=== PATIENT | female | born 1935 | race Caucasian/White ===

== ENCOUNTER 2016-10-09 08:28 | Inpatient (IN) ==
[2016-10-09] MEDS ORDERED: ONDANSETRON 4 MG/2 ML VIAL IV PRN (08:35)
[2016-10-09] MEDS ORDERED: ACETAMINOPHEN 325 MG TABLET PO PRN (08:35)
--- NOTE | 2016-10-09 08:50 | Family Practice History&Phys ---
Assessment and Plan (1) severe dyspnea with exertion Status: Acute Assessment and plan: Patient not able to function at present with a level of dyspnea. I am not able to determine the exact etiology but is probably multifactorial in nature. In view of degree of symptoms will admit for further evaluation and therapy (2) known diastolic dysfunction Status: Chronic Assessment and plan: Patient has been evaluated by Dr. Caicedo in the past. We'll consult Dr. Caicedo for his assistance (3) COPD (chronic obstructive pulmonary disease) Status: Chronic Assessment and plan: Patient has been evaluated by pulmonary in the past. She presently uses an Advair inhaler on a daily basis. 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 Valladares is a 80 year old female 80-year-old white female well known to me who was seen in the clinic complaining of progressive dyspnea. Patient states that symptoms have progressed to the point that she is not able to walk across the room or do any activity without severe dyspnea. Patient is dyspneic at rest. She denies cough congestion chest pain or other related complaints. She has had some similar symptoms in the past and has been evaluated by Dr. Caicedo. She was felt to have a component of diastolic dysfunction and her medications were regulated.. She is also seeing Dr. Leyva in the past and has been placed on bronchodilators. Her lung johnson are actually clear to auscultation at present and chest x-ray done earlier this week is unremarkable. Family states that she has to stop every few feet in order to be able to ambulate. Family relates that there's been a significant change in her breathing. Her O2 sats in the clinic were 91%. Patient states she's having to sit up on the side of the bed in order to sleep. In view of the degree of symptoms with no clear-cut diagnosis a plan to admit for more aggressive evaluation and therapy. This is likely multifactorial in nature. We'll plan to consult cardiology and pulmonary for their assistance Home Medications Medication Instructions Recorded Confirmed Type Diltiazem Cd Cap [Cardizem Cd] 240 mg PO ONCE 08/22/14 08/29/14 History Ergocalciferol (Vitamin D2) 50,000 unit PO BID 08/22/14 08/29/14 History [Vitamin D2] Tolterodine LA [Detrol LA] 4 mg PO DAILY 08/22/14 08/29/14 History cloNIDine HCl [Clonidine HCl] 0.1 mg PO DAILY 08/22/14 08/29/14 History hydroCHLOROthiazide 12.5 mg PO DAILY 08/22/14 08/29/14 History [Hydrochlorothiazide] HYDROcodone/ACETAMIN 5-325 [[place] 1 - 2 tablet PO Q4H PRN #20 tablet 08/31/14 Rx 5-325] Allergies Allergy/AdvReac Type Severity Reaction Status Date / Time No Known Allergies Allergy Unverified 08/29/14 06:18 Medical,Surgical,& Family Hx - Medical History Cardio: History of: Hypertension No history of: Aneurysm, Cardiac Dysrhythmia, Cerebrovascular Disease, Congenital Heart Disease, CHF, CAD, [place], Pacemaker, PVD, Valvular Heart Disease, Cardiovascular Problems Psychological: No history of: Anxiety Disorders, ADHD, Behavior Problems, Bipolar Disorder, Depression, Previous Suicide Attempt, Psychiatric/Substance Abuse Tx, Schizophrenia, Violent Behavior, Psychiatric Problems Neurology: No history of: Seizures HEENT: History of: Ear Problem (HARD OF HEARING), Eye Problem (HAD CATARACT SURGERY), Dental Problems (UPPER AND LOWER DENTURES) No history of: Glaucoma, Oral Cancer Endocrine: No history of: Adrenal Disease, Diabetes Mellitus (IDDM), Diabetes Mellitus ( NIDDM), Dyslipidemia, Thyroid Disorder, Endocrine Cancer, Endocrine Problems Rheumatology: No history of;: Fibromyalgia, Gout, Myasthenia Gravis, Psoriasis, Rheumatoid Arthritis, Systemic Lupus Erythematosus, Rheumatological Problems Respiratory: History of: Lung Cancer, Respiratory Problems (SHORTNESS OF BREATH) No history of: Asthma, Bronchitis, COPD, Intubation, Obstructive Sleep Apnea , Pulmonary Embolism, Pulmonary Hypertension, Pneumonia Renal: No history of: Renal (Kidney) Cancer, Dialysis, Renal Failure, Renal Problems Genitourinary: History of: Bladder Problem (FREQUENCY) No history of: Kidney Stones, Recurring Urinary Tract Infections, Genitourinary Cancer, Problems Gastrointestinal: History of: GERD (PAST HISTORY OF REFLUX NOT CURRENTLY) Musculoskeletal: No history of: Back/Neck Problems, Degenerative Disk Disease, Herniated Disk , Osteoporosis, Musculoskeletal Cancer, Musculoskeletal Problems Hematology: No history of: Anemia, Blood Transfusion Reaction, Bleeding Problems, Sickle Cell Disease, Hematologic Cancer Reproductive: No history of: Abnormal Pap Smear, Breast Cancer, Endometriosis, Ectopic , Ovarian Cysts, Complication, Sexually Transmitted Disorders , Reproductive Cancer, Reproductive Problems Other: History of: Anesthesia Reactions (HARD TO WAKE UP AFTER LAST ANESTHESIA) , Cancer (LUNG CANCER) No history of: HIV, Malignant Hyperthermia, MRSA, Vancomycin-Resistant Enterococci, Skin Problems, Miscellaneous Medical Problems - Surgical History Cardiac Surgeries: Patient Denies: Femoral-Popliteal Bypass Graft, Cardiac Catheterization, Cardiac Surgery, Carotid Endarterectomy, Internal Defibrillator, Vascular Access Devices Thoracic Surgeries: Surgical HX of;: Lobectomy Patient denies;: Kidney (Renal Surgery), Lithotripsy, Nephrectomy, Organ Transplant Neurologic Surgeries: Patient denies: Neurologic Surgery HEENT Surgeries: Surgical HX of: Eye Surgery (CATARACT), Thyroid Surgery ( THYROECTOMY) Patient denies: Carotid Endarterectomy, Tonsilectomy & Adenoidectomy Abdominal Surgeries: Surgical HX of: Abdominal Surgery (GALLBLADDER), Appendectomy Patient denies: Cholecystectomy, Colonoscopy, Gastric Bypass Surgery, EGD, Hernia Repair, Splenectomy Reproductive Surgeries: Patient denies;: Breast Surgery, Section, Cystoscopy, Dilation and Curettage, Genitourinary Surgery, Gynecologic Surgery, Hysterectomy, Tubal Ligation - Family History Family History: Reports;: Family Heart Disease (BROTHER) Denies;: Family Anesthesia Reaction, Family Cancer, Family Diabetes, Family Hypertension, Family Psychiatric Problems, Family Stroke - Social History Smoking Status: Former smoker Frequency of Alcohol Use: None Type of Drug Use: None Marital Status: Lives With:: Spouse Functional capacity: independent ambulation Exam - Constitutional General appearance: mild distress - Head Head exam: Present: normal inspection - Eye Pupils: Present: RUPERTO - ENT ENT exam: Present: normal exam - Neck Neck exam: Present: normal inspection, other (no jugular venous distention) - Respiratory Respiratory exam: Present: clear to auscultation bilaterally - Cardiovascular Cardiovascular exam: Present: regular rate and rhythm - GI/Abdominal GI/Abdominal exam: Present: normal bowel sounds, soft - Extremities Exam Extremities exam: Present: full ROM, edema - Back Exam Back exam: Present: normal inspection - Neurological Exam Neurological exam: Present: alert - Psychiatric Psychiatric exam: Present: normal affect - Skin Skin exam: Present: normal color
[2016-10-09 10:00] LABS: Basophils # 0.1 10*3/uL (0.0-0.2); Basophils % 0.5 % (0.0-0.8); Eosinophils % 0.2 % (0.00-10.9); Hematocrit 43.5 VOL% (35.7-47.0); Hemoglobin 13.9 GM/DL (12.0-16.0); Immature Granulocytes % 7.3 %; Immature Granulocytes Absolute 1.55 #; Lymphocytes # 1.3 10*3/uL (1.4-4.0); Lymphocytes % 6.2 % (21.3-54.2); Mean Corpuscular Hemoglobin 29 PG (27-34); Mean Corpuscular Volume 89.1 FL (87-102); Mean Platelet Volume 10.9 FL (9.6-12.0); Monocytes % 4.7 % (1.7-12.7); NRBC # 0.03 10*3/uL; Neutrophils # 17.3 10*3/uL (1.4-7.4); Neutrophils % 81.1 % (38.7-73.9); Platelet Count 378 T/CUMM (130-400); Red Blood Count 4.88 MC/CUMM (3.8-5.5); Red Cell Distribution Width 15.7 % (9.3-17.3); White Blood Count 21.3 T/CUMM (4-12)
--- NOTE | 2016-10-09 10:02 | EKG Report ---
Stationary ECG Study [facility] Test Date: 10/09/2016 10:02:21 AM Pat Name: SILVANA GABRIEL Department: Room: 221 Gender: F Lathmaker: EARL : 1935 Requested by: Marco Antonio De La Torre Order Number: [id number] Reading MD: KASHIF COLEMAN Intervals [place] Rate: 80 P: 55 CT: 175 QRS: -54 QRSD: 112 T: 65 QT: 394 QTc: 430 Interpretive Statements SINUS RHYTHM RIGHT BUNDLE BRANCH BLOCK LEFT ANTERIOR FASCICULAR BLOC Electronically Signed On 10-09-16 17:28:50 CDT by KASHIF COLEMAN [email or web address]
[2016-10-09 10:24] LABS: Eosinophils 1 % (0-10); Hypochromasia 2+; Lymphocytes 7 % (20-55); Microcytosis 2+; Platelet Estimate Adequate; Segmented Neutrophils 90 % (50-85); Total Cells Counted 100
[2016-10-09 10:30] LABS: Albumin 4.2 G/DL (3.4-5.0); Bilirubin,Total 0.6 MG/DL (0.2-1.0); Calcium 8.9 MG/DL (8.5-10.1); Osmolality,Calculated 285.4 MOS/KG (273-304); Total Protein 7.5 G/DL (6.4-8.3)
--- NOTE | 2016-10-09 10:42 | Pulmonology Consult Note ---
Assessment and Plan (1) Acute diastolic congestive heart failure Status: Acute Assessment and plan: She has edema and orthopnea and history of diastolic congestive heart failure. She has some mild. I do not have a chest x-ray BNP or echo back as yet. However I think she likely has some heart failure. Would suggest diuresing her and stopping IV fluids. Her creatinine is 1.4. She has had a previous left nephrectomy. 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 [place] to be in remission. Dr. Lowe is treated in the past. Dr. Durbin did her surgery. 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 Sneed about 2 years ago. Current Visit: No (4) COPD (chronic obstructive pulmonary disease) Status: Chronic Assessment and plan: She stopped smoking about 30 years ago but does have a diagnosis of COPD. Dr. Leyva has followed her in the past and will roller picker on Wednesday. Current Visit: No (5) severe dyspnea with exertion Status: Acute Assessment and plan: It is not clear how much of this is from congestive heart failure or COPD. I am concerned about a possible pulmonary embolism was her bilateral leg swelling and pain. Will get venous Dopplers and a CT PE protocol. Creatinine of 1.4 should allow her to have that. Current Visit: Yes History of Present Illness Chief complaint: Shortness of breath History of present illness: Ms. Valladares is a 80 year old female who was admitted today by Dr. Melchor from his office. She relates that she has been getting more more short of breath over the last month and had increased leg edema. She has a history of congestive heart failure related to diastolic dysfunction. She has COPD. She is on previous left lower lobectomy for lung cancer about 12 years ago. She had chemotherapy after that but apparently no evidence of recurrence since then. Dr. Lowe treated her. She had a left nephrectomy about 2 years ago. She says she has been more more short of breath since that time. Now for the last 3-4 weeks she has been more short of breath with nothing specific to put her finger on. She does have orthopnea. She has had increasing amounts of leg edema. There is no known history of deep vein thrombosis. Home Medications Medication Instructions Recorded Confirmed Type Diltiazem Cd Cap [Cardizem Cd] 240 mg PO ONCE 08/22/14 08/29/14 History Ergocalciferol (Vitamin D2) 50,000 unit PO BID 08/22/14 08/29/14 History [Vitamin D2] Tolterodine LA [Detrol LA] 4 mg PO DAILY 08/22/14 08/29/14 History cloNIDine HCl [Clonidine HCl] 0.1 mg PO DAILY 08/22/14 08/29/14 History hydroCHLOROthiazide 12.5 mg PO DAILY 08/22/14 08/29/14 History [Hydrochlorothiazide] HYDROcodone/ACETAMIN 5-325 [[place] 1 - 2 tablet PO Q4H PRN #20 tablet 08/31/14 Rx 5-325] Allergies Allergy/AdvReac Type Severity Reaction Status Date / Time No Known Allergies Allergy Unverified 08/29/14 06:18 12 point system: reviewed and no additional remarkable complaints except as stated - Constitutional Constitutional: Present: weight gain - Cardiovascular Cardiovascular: Present: dyspnea, dyspnea on exertion, edema - Respiratory Respiratory: Present: dyspnea, dyspnea on exertion Exam (Pulmonay) H&P - Constitutional Vitals: Vital signs normal. Exam: Patient alert and oriented. Sitting on the side of the bed. HEENT: Pupils react to light. Throat is clear. Neck is supple. Mild jugular venous distention. Chest shows a few crackles at the right base. Decreased breath sounds and dullness at the left base. She had prolonged expiratory phase. Heart normal rate and rhythm no murmurs no rubs no gallops. Abdomen soft nontender no masses. Bowel sounds present. Extremities she has 2+ pitting edema. There is some erythema in both lower extremities. Calves are nontender. Medical,Surgical,& Family Hx - Medical History Cardio: History of: Hypertension No history of: Aneurysm, Cardiac Dysrhythmia, Cerebrovascular Disease, Congenital Heart Disease, CHF, CAD, [place], Pacemaker, PVD, Valvular Heart Disease, Cardiovascular Problems Psychological: No history of: Anxiety Disorders, ADHD, Behavior Problems, Bipolar Disorder, Depression, Previous Suicide Attempt, Psychiatric/Substance Abuse Tx, Schizophrenia, Violent Behavior, Psychiatric Problems Neurology: No history of: Seizures HEENT: History of: Ear Problem (HARD OF HEARING), Eye Problem (HAD CATARACT SURGERY), Dental Problems (UPPER AND LOWER DENTURES) No history of: Glaucoma, Oral Cancer Endocrine: No history of: Adrenal Disease, Diabetes Mellitus (IDDM), Diabetes Mellitus ( NIDDM), Dyslipidemia, Thyroid Disorder, Endocrine Cancer, Endocrine Problems Rheumatology: No history of;: Fibromyalgia, Gout, Myasthenia Gravis, Psoriasis, Rheumatoid Arthritis, Systemic Lupus Erythematosus, Rheumatological Problems Respiratory: History of: Lung Cancer, Respiratory Problems (SHORTNESS OF BREATH) No history of: Asthma, Bronchitis, COPD, Intubation, Obstructive Sleep Apnea , Pulmonary Embolism, Pulmonary Hypertension, Pneumonia Renal: No history of: Renal (Kidney) Cancer, Dialysis, Renal Failure, Renal Problems Genitourinary: History of: Bladder Problem (FREQUENCY) No history of: Kidney Stones, Recurring Urinary Tract Infections, Genitourinary Cancer, Problems Gastrointestinal: History of: GERD (PAST HISTORY OF REFLUX NOT CURRENTLY) Musculoskeletal: No history of: Back/Neck Problems, Degenerative Disk Disease, Herniated Disk , Osteoporosis, Musculoskeletal Cancer, Musculoskeletal Problems Hematology: No history of: Anemia, Blood Transfusion Reaction, Bleeding Problems, Sickle Cell Disease, Hematologic Cancer Reproductive: No history of: Abnormal Pap Smear, Breast Cancer, Endometriosis, Ectopic , Ovarian Cysts, Complication, Sexually Transmitted Disorders , Reproductive Cancer, Reproductive Problems Other: History of: Anesthesia Reactions (HARD TO WAKE UP AFTER LAST ANESTHESIA) , Cancer (LUNG CANCER) No history of: HIV, Malignant Hyperthermia, MRSA, Vancomycin-Resistant Enterococci, Skin Problems, Miscellaneous Medical Problems - Surgical History Cardiac Surgeries: Patient Denies: Femoral-Popliteal Bypass Graft, Cardiac Catheterization, Cardiac Surgery, Carotid Endarterectomy, Internal Defibrillator, Vascular Access Devices Thoracic Surgeries: Surgical HX of;: Lobectomy Patient denies;: Kidney (Renal Surgery), Lithotripsy, Nephrectomy, Organ Transplant Neurologic Surgeries: Patient denies: Neurologic Surgery HEENT Surgeries: Surgical HX of: Eye Surgery (CATARACT), Thyroid Surgery ( THYROECTOMY) Patient denies: Carotid Endarterectomy, Tonsilectomy & Adenoidectomy Abdominal Surgeries: Surgical HX of: Abdominal Surgery (GALLBLADDER), Appendectomy Patient denies: Cholecystectomy, Colonoscopy, Gastric Bypass Surgery, EGD, Hernia Repair, Splenectomy Reproductive Surgeries: Patient denies;: Breast Surgery, Section, Cystoscopy, Dilation and Curettage, Genitourinary Surgery, Gynecologic Surgery, Hysterectomy, Tubal Ligation - Family History Family History: Reports;: Family Heart Disease (BROTHER) Denies;: Family Anesthesia Reaction, Family Cancer, Family Diabetes, Family Hypertension, Family Psychiatric Problems, Family Stroke - Social History Smoking Status: Smoker, status unknown Frequency of Alcohol Use: None Type of Drug Use: None Results - Labs CBC & BMP: 10/09/16 09:34 10/09/16 09:34 Lab Results: I have reviewed the past 24 hour labs
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
--- NOTE | 2016-10-09 11:56 | Ultrasound Report ---
Exam: Bilateral lower extremity venous Doppler ultrasound Comparison: None Clinical history: Leg edema, leg pain, shortness of breath Technique: Duplex scan of the lower extremity veins using B-mode/grayscale scaled imaging and Doppler spectral analysis and color flow. Findings: Major venous structures of the lower extremities demonstrate a normal course and caliber. Normal color-flow study and spectral analysis. There is normal compression and augmentation of bilateral common femoral, superficial femoral and popliteal veins. The proximal bilateral greater saphenous veins appear to be patent. Impression: No evidence to suggest deep venous thrombosis within either lower extremity. Ultrasound images were captured and stored. PROCEDURE INTERPRETED AT [facility] DEPARTMENT OF RADIOLOGY Final Report Signed by: Dr. Hallie Dalton
--- NOTE | 2016-10-09 12:51 | CT Report ---
Exam: CT chest with contrast, PE study Date: 10/09/2016 Comparison: 07/09/2015 Reason: Shortness of breath, history of lung, thyroid, and kidney cancer Technique: Axial images of the chest were obtained after administration of 80 cc of IV Omnipaque 350 intravenous contrast. Coronal reformatted images were also acquired. The study was performed per pulmonary embolism protocol. Total DLP: 632.40 Findings: The heart remains enlarged with prominent cardiac fat pad and minimal arterial calcifications. No evidence of aortic dissection with the thoracic aorta remaining at the upper limits normal in size. Pulmonary arteries with no definite pulmonary emboli. Postoperative findings in the left thyroid bed incomplete evaluation of right lobe. No chest lymphadenopathy is identified. Prior left thoracotomy with degenerative changes. Subpleural fat deposition with chronic scarring in the lungs. Persistent diffuse groundglass opacities with bullous emphysema. Stable 3 mm noncalcified pulmonary nodule in the right middle lobe on image 66. Stable 5 mm noncalcified pulmonary nodule in the left lower lobe on scan 59. Impression: No definite pulmonary emboli identified with minimal dilatation of the pulmonary arteries. Minimal arterial calcifications. Prior left thyroid lobectomy with limited evaluation of the right lobe of the thyroid gland. Prior left thoracotomy with 2 stable noncalcified pulmonary nodules. Chronic scarring with persistent diffuse groundglass opacities and minimal bullous emphysema. Increased fat deposition including fatty infiltration of liver, cardiac fat pads, and subpleural fat deposition. This CT exam was performed using one or more the following dose reduction techniques: Automated exposure control, adjustment of the MA and/or KV according to patient size, or use of iterative reconstruction technique. PROCEDURE INTERPRETED AT [facility] DEPARTMENT OF RADIOLOGY Final Report Signed by: Dr. Hallie Dalton
[2016-10-09] MEDS ORDERED: DILTIAZEM CD 240 MG CAPSULE PO SCH (13:30)
[2016-10-09] MEDS: ALBUTEROL/IPRATROPIUM 3 ML NEB RESP TX SCH ×2 (13:51→19:48)
[2016-10-09] MEDS: DEXTROSE 5% NACL 0.45% 1,000 ML IV SCH (14:16)
[2016-10-09] MEDS: DOCUSATE SODIUM 100 MG CAPSULE PO SCH ×2 (14:19→22:57)
[2016-10-09] MEDS: PANTOPRAZOLE 40 MG TABLET PO SCH (14:19)
[2016-10-09] MEDS: TOLTERODINE LA 4 MG CAPSULE PO SCH (14:19)
[2016-10-09 15:58] LABS: Apearance,Urine CLEAR (Clear); Bilirubin,Urine Negative (Negative); Blood, Urine Negative (Negative); Glucose,Urine (UA) Negative (Negative); Ketones,Urine Negative (Negative); Nitrite,Urine Negative (Negative); Protein,Urine Negative; RBC,Urine <1 /HPF (0-4); Squamous Epithelial Cell,Urine Occasional /HPF (0-10); Urine Color Straw (Yellow); Urine Specific Gravity 1.008 (1.001-1.035); Urine Urobilinogen < 2.0 EU/DL (0.2-1.0); WBC,Urine 1 /HPF (0-6)
--- NOTE | 2016-10-09 16:07 | XRay Report ---
XR chest 2V Indication: Shortness of breath. Chest 2 views: Comparison 07/25/2012. Patient has had left humerus surgery since prior exam. Lungs are more hypoinflated than previous with some degree of worsening atelectasis. Chronic elevation left hemidiaphragm is again noted. Surgical clips left hilum and left neck are stable. Cardiomegaly is now present with increased reticular prominence of the lungs, possibly edema. No focal infiltrate shown. No pleural effusion. Patient is obese. Impression: Mild CHF decompensation. Chronic elevation left hemidiaphragm and pulmonary hypoinflation in general. PROCEDURE INTERPRETED AT [facility] DEPARTMENT OF RADIOLOGY Final Report Signed by: Gamaliel Corona M.D.
--- NOTE | 2016-10-09 16:23 | ECHO Report ---
Dylan Valladares Exam Date: 10/09/2016 10:04 Referring Physician: Technologist: Jemma Fields CHUY Age: 80 Ht (in): 63 Wt (lb): 253 Gender: F Exam Location: [facility] Echo Indications: Dyspnea, unspecified, Essential (primary) hypertension, Diastolic dysfunction, COPD, Lt nephrectomy, lung cancer BP: 160 / 95 HR: 82 Rhythm: Sinus Technical Quality: Fair IMPRESSIONS EF 60 %. Grade I/IV diastolic dysfunction (abnormal relaxation filling pattern), normal to mildly elevated filling pressures. Mildly increased right ventricular size. Moderately increased right atrial size. The left atrium is mildly enlarged. Mildly thickened mitral valve. Aortic valve sclerosis. Trace aortic valve regurgitation. Severe tricuspid valve regurgitation. [id number] mmHg. Pulmonic valve not well visualized. Normal pericardium without effusion. Normal ascending aorta dimension. MEASUREMENTS (Male / Female) Normal Values 2D ECHO LV Diastolic Diameter PLAX 4.5 cm 4.2 - 5.9 / 3.9 - 5.3 cm LV Systolic Diameter PLAX 2.8 cm LV Fractional Shortening PLAX 36.9 % IVS Diastolic Thickness 0.9 cm 0.6 - 1.0 / 0.6 - 0.9 cm LVPW Diastolic Thickness 0.9 cm 0.6 - 1.0 / 0.6 - 0.9 cm RV Internal Dim ED PLAX 3.1 cm Aortic Root Diameter 3.8 cm LA Systolic Diameter LX 3.4 cm 3.0 - 4.0 / 2.7 - 3.8 cm DOPPLER TR Peak Velocity 350.0 cm/s TR Peak Gradient 49.0 mmHg FINDINGS Left Ventricle EF 60 %. Grade I/IV diastolic dysfunction (abnormal relaxation filling pattern), normal to mildly elevated filling pressures. Right Ventricle Mildly increased right ventricular size. Right Atrium Moderately increased right atrial size. Left Atrium The left atrium is mildly enlarged. Mitral Valve Mildly thickened mitral valve. Aortic Valve Aortic valve sclerosis. Trace aortic valve regurgitation. Tricuspid Valve Morphologically normal tricuspid valve. Severe tricuspid valve regurgitation. UBX68-76 mmHg. Pulmonic Valve Pulmonic valve not well visualized. Pericardium Normal pericardium without effusion. Aorta Normal ascending aorta dimension. Jarrell Petty (Electronically Signed) Final Date: 09 Oct 2016 16:22
[2016-10-10] MEDS: ALBUTEROL/IPRATROPIUM 3 ML NEB RESP TX SCH ×4 (00:36→19:10)
[2016-10-10 04:26] LABS: Basophils # 0.1 10*3/uL (0.0-0.2); Basophils % 0.6 % (0.0-0.8); Eosinophils # 0.1 10*3/uL (0.0-0.87); Hematocrit 41.5 VOL% (35.7-47.0); Immature Granulocytes % 8.2 %; Immature Granulocytes Absolute 1.17 #; Lymphocytes # 1.3 10*3/uL (1.4-4.0); Lymphocytes % 8.9 % (21.3-54.2); Mean Corpuscular HGB Conc 31.3 GM/DL (32-36); Mean Corpuscular Hemoglobin 28 PG (27-34); Mean Corpuscular Volume 89.4 FL (87-102); Mean Platelet Volume 10.9 FL (9.6-12.0); Monocytes # 0.7 10*3/uL (0.11-0.8); Monocytes % 4.6 % (1.7-12.7); NRBC # 0.03 10*3/uL; Neutrophils # 10.9 10*3/uL (1.4-7.4); Neutrophils % 76.7 % (38.7-73.9); Platelet Count 337 T/CUMM (130-400); Red Blood Count 4.64 MC/CUMM (3.8-5.5); White Blood Count 14.3 T/CUMM (4-12)
[2016-10-10 04:55] LABS: Calcium 8.5 MG/DL (8.5-10.1); Magnesium 2.4 MG/DL (1.8-2.4); Osmolality,Calculated 286.3 MOS/KG (273-304); Potassium 4.4 MMOL/L (3.5-5.1)
[2016-10-10 05:04] LABS: Eosinophils 2 % (0-10); Hypochromasia 2+; Lymphocytes 7 % (20-55); Metamyelocytes 1 %; Platelet Estimate Normal; Segmented Neutrophils 84 % (50-85); Total Cells Counted 100
[2016-10-10 05:35] LABS: Risk Ratio 3.98; VLDL CHOLESTEROL 56.8 MG/DL
[2016-10-10] MEDS: PANTOPRAZOLE 40 MG TABLET PO SCH (08:22)
[2016-10-10] MEDS: DOCUSATE SODIUM 100 MG CAPSULE PO SCH ×2 (08:22→22:04)
[2016-10-10] MEDS: hydroCHLOROthiazide 12.5 MG CAPSULE PO SCH (08:22)
[2016-10-10] MEDS: cloNIDine 0.1 MG TABLET PO SCH (08:22)
[2016-10-10] MEDS: TOLTERODINE LA 4 MG CAPSULE PO SCH (08:22)
[2016-10-10] MEDS: DEXTROSE 5% NACL 0.45% 1,000 ML IV SCH (08:30)
--- NOTE | 2016-10-10 08:38 | Family Practice Progress Note ---
Family Practice - PN: Subj Interval history: Patient in with dyspnea with exertion. She still having a little bit of shortness of breath. She does have a component of chronic obstructive pulmonary disease with some diastolic dysfunction. Oxygen sats today are 92%. She states she may be a little better but still having a fair amount of dyspnea with exertion. She is morbidly obese which does not contribute well to the situation. I am going to DC her IV fluids today. Her white count has come down to 14.3 from 21. Creatinine stable at 1.3 and lab otherwise is okay Exam (Progress Note) - Constitutional Vitals: Period Temp Pulse Resp BP Sys/Rocha Pulse Ox Last 24 Hr 96.2 F-98.0 F 78-100 17-32 129-160/78-95 92-99 Exam: General examination is unchanged. HEENT is negative Cardiovascular rate regular no gallop or rub Lungs few basilar rales but generally clear otherwise Abdomen soft nondistended Results - Labs CBC & BMP: 10/10/16 03:59 10/10/16 03:59 Assessment and Plan (1) severe dyspnea with exertion Status: Acute Assessment and plan: 10/10/2016: Continuing current regimen of breathing treatments and medications Current Visit: Yes (2) COPD (chronic obstructive pulmonary disease) Status: Chronic Assessment and plan: 10/10/2016. Patient is on albuterol. O2 sats are 92% on 2 L of O2 Current Visit: No
--- NOTE | 2016-10-10 08:48 | Pulmonology Progress Note ---
Pulmonary - PN: Subj Interval history: This 80-year-old white female has had gradually worsening shortness of breath over the last month. She is a former smoker and has had a left lower lobectomy for lung cancer. She had some peripheral edema. We did a CT PE protocol yesterday and there was no evidence of embolism. In fact her lungs were clear and there were no pleural effusions. I do think she has some acute bronchitis. I have stopped her IV fluids because of the peripheral edema. Her renal function appears intact. Her BNP was low at 46 which would certainly argue against any congestive heart failure. She had venous Dopplers were negative for DVT. I think some of her edema and dyspnea are due to her weight and inactivity. There is some debilitation from lack of activity. Exam (Progress Note) - Constitutional Vitals: Period Temp Pulse Resp BP Sys/Rocha Pulse Ox Last 24 Hr 96.2 F-98.0 F 78-100 17-32 129-160/78-95 92-99 Exam: Patient is alert sitting up in a chair. Vital signs are normal. Pupils react to light. Throat is clear. Neck supple no bruits. Chest is clear I do not hear any rales or wheezes. Heart normal rate and rhythm no murmurs. Abdomen obese unable to palpate abdominal organs. Extremities she has a trace to 1+ peripheral edema. Calves are nontender. Results - Labs CBC & BMP: 10/10/16 03:59 10/10/16 03:59 Lab Results: I have reviewed the past 24 hour labs - Diagnostic Findings Procedure: CT - chest: image reviewed by me (Lungs clear. No pulmonary embolism.) Assessment and Plan (1) Acute diastolic congestive heart failure Status: Acute Assessment and plan: She has edema and orthopnea and history of diastolic congestive heart failure. She has some mild. I do not have a chest x-ray BNP or echo back as yet. However I think she likely has some heart failure. Would suggest diuresing her and stopping IV fluids. Her creatinine is 1.4. She has had a previous left nephrectomy. 10/10/2016 I think she is a little ahead on fluids but I do not see any signs of acute heart failure. 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 [place] to be in remission. Dr. Lowe is treated in the past. Dr. Durbin did her surgery. 10/10/2016 shortly no evidence of recurrence of her cancer on CT scan. 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 Sneed about 2 years ago. 10/10/2016 creatinine 1.3. Renal function actually better after the CT contrast study. Current Visit: No (4) COPD (chronic obstructive pulmonary disease) Status: Chronic Assessment and plan: She stopped smoking about 30 years ago but does have a diagnosis of COPD. Dr. Leyva has followed her in the past and will picker and packer on Wednesday. 10/10/2016 empirically treating her for exacerbation of COPD. Current Visit: No (5) severe dyspnea with exertion Status: Acute Assessment and plan: It is not clear how much of this is from congestive heart failure or COPD. I am concerned about a possible pulmonary embolism was her bilateral leg swelling and pain. Will get venous Dopplers and a CT PE protocol. Creatinine of 1.4 should allow her to have that. 10/10/2016 this is multifactorial. Pulmonary embolus has been ruled out. Patient does have some diastolic congestive heart failure by history but her BNP is normal. Probably has COPD. Obesity and inactivity with physical deconditioning. Had negative venous Dopplers as well. Current Visit: Yes
--- NOTE | 2016-10-10 12:59 | Cardiology Progress Note ---
Cardiology - PN: Subj Interval history: Cardiology note No cough fever or chills. Still short of breath Decreased breath sounds but fairly clear no wheezing Regular rhythm no gallop Negative venous Doppler. CT the chest negative for pulmonary embolus Echo shows ejection fraction of 60% with grade 1 diastolic dysfunction, moderate dilated right atrium, severe TR PA pressure 55-60 with no effusion and aortosclerosis. Lab data White count 14.3 Hemoglobin 13.0 hematocrit 41.5 sodium 141 Potassium 4.4 chloride 104 CO2 29 BUN 27 creatinine 1.30 Magnesium 2.4 glucose 118 Impression Bronchitis Sedentary and deconditioned Multifactorial dyspnea Diastolic dysfunction Chronic hypertension Status post left upper lobectomy October 2003 for adenocarcinoma along followed by chemotherapy Status post partial thyroidectomy Obstructive sleep apnea suspected Obesity, 5 feet 3 inches tall 253 pounds Status post left nephrectomy [address] Jose Antonio Sneed for hypernephroma Plan Nebs Lasix 40 mg daily Cardizem CD has been stopped. This may be contributing to her leg edema Exam (Progress Note) - Constitutional Vitals: Period Temp Pulse Resp BP Sys/Rocha Pulse Ox Last 24 Hr 96.2 F-98.2 F 80-100 17-22 129-158/64-94 92-99 Result/EKG - Labs CBC & BMP: 10/10/16 03:59 10/10/16 03:59 Labs: Laboratory Results - last 24 hr 10/09/16 10/10/16 10/10/16 11:08 03:59 03:59 WBC 14.3 H D RBC 4.64 Hgb 13.0 Hct 41.5 MCV 89.4 MCH 28 MCHC 31.3 L RDW 16.0 Plt Count 337 MPV 10.9 Neut % (Auto) 76.7 H Lymph % (Auto) 8.9 L [place] % (Auto) 4.6 Eos % (Auto) 1.0 Baso % (Auto) 0.6 Neut # (Auto) 10.9 H Lymph # (Auto) 1.3 L [place] # (Auto) 0.7 Eos # (Auto) 0.1 Baso # (Auto) 0.1 Total Counted 100 Immature Gran % 8.2 Nucleated RBC % 0.2 Immature Gran # 1.17 Segmented Neutrophils 84 Lymphocytes 7 L Monocytes 3 Eosinophils 2 Basophils 3.0 H Metamyelocytes 1 Nucleated RBCs # 0.03 Platelet Estimate Normal Hypochromasia 2+ Sodium Potassium Chloride Carbon Dioxide Anion Gap BUN Creatinine GFR Calculation BUN/Creatinine Ratio Glucose Calculated Osmolality Calcium Magnesium Triglycerides 284 H Cholesterol 171 LDL Cholesterol 96.0 VLDL Cholesterol 56.8 HDL Cholesterol 43 Heart Disease Risk Ratio 3.98 25-OH Vitamin D Total Urine Color Straw Urine Appearance Clear Urine pH 6.0 Ur Specific [place] 1.008 Urine Protein Negative Urine Glucose (UA) Negative Urine Ketones Negative Urine Blood Negative Urine Nitrate Negative Urine Bilirubin Negative Urine Urobilinogen < 2.0 H Urine Leukocytes Negative Urine RBC <1 Urine WBC 1 Ur Squamous Epith Cells Occasional Ur Culture Indicated? Not indicated 10/10/16 10/10/16 03:59 03:59 WBC RBC Hgb Hct MCV MCH MCHC RDW Plt Count MPV Neut % (Auto) Lymph % (Auto) [place] % (Auto) Eos % (Auto) Baso % (Auto) Neut # (Auto) Lymph # (Auto) [place] # (Auto) Eos # (Auto) Baso # (Auto) Total Counted Immature Gran % Nucleated RBC % Immature Gran # Segmented Neutrophils Lymphocytes Monocytes Eosinophils Basophils Metamyelocytes Nucleated RBCs # Platelet Estimate Hypochromasia Sodium 141 Potassium 4.4 Chloride 104 Carbon Dioxide 29 Anion Gap 12.4 BUN 27 H Creatinine 1.30 H GFR Calculation 49 BUN/Creatinine Ratio 20.00 Glucose 118 H Calculated Osmolality 286.3 Calcium 8.5 Magnesium 2.4 Triglycerides Cholesterol LDL Cholesterol VLDL Cholesterol HDL Cholesterol Heart Disease Risk Ratio 25-OH Vitamin D Total 7.2 Urine Color Urine Appearance Urine pH Ur Specific [place] Urine Protein Urine Glucose (UA) Urine Ketones Urine Blood Urine Nitrate Urine Bilirubin Urine Urobilinogen Urine Leukocytes Urine RBC Urine WBC Ur Squamous Epith Cells Ur Culture Indicated?
[2016-10-10] MEDS: FUROSEMIDE 40 MG TABLET PO SCH (13:45)
[2016-10-10] MEDS: CARVEDILOL 6.25 MG TABLET PO SCH (22:05)
[2016-10-10] MEDS: FLUTICASONE/SALMETEROL 250-50 DISKUS 14 DOSE INH SCH (22:05)
[2016-10-11] MEDS: ALBUTEROL/IPRATROPIUM 3 ML NEB RESP TX SCH ×4 (01:32→19:37)
[2016-10-11 06:20] LABS: Basophils # 0.1 10*3/uL (0.0-0.2); Basophils % 0.4 % (0.0-0.8); Eosinophils # 0.2 10*3/uL (0.0-0.87); Eosinophils % 1.5 % (0.00-10.9); Hematocrit 42.8 VOL% (35.7-47.0); Hemoglobin 13.8 GM/DL (12.0-16.0); Immature Granulocytes Absolute 1.09 #; Lymphocytes # 1.3 10*3/uL (1.4-4.0); Lymphocytes % 8.3 % (21.3-54.2); Mean Corpuscular HGB Conc 32.2 GM/DL (32-36); Mean Corpuscular Hemoglobin 29 PG (27-34); Mean Corpuscular Volume 88.2 FL (87-102); Mean Platelet Volume 10.5 FL (9.6-12.0); Monocytes # 0.8 10*3/uL (0.11-0.8); NRBC # 0.04 10*3/uL; Neutrophils # 12.2 10*3/uL (1.4-7.4); Neutrophils % 77.8 % (38.7-73.9); Platelet Count 329 T/CUMM (130-400); Red Blood Count 4.85 MC/CUMM (3.8-5.5); Red Cell Distribution Width 15.9 % (9.3-17.3); White Blood Count 15.7 T/CUMM (4-12)
[2016-10-11 06:45] LABS: Lymphocytes 10 % (20-55); Total Cells Counted 100
[2016-10-11 06:47] LABS: Ovalocytes 1+; Platelet Estimate Normal; Polychromasia Few; Segmented Neutrophils 82 % (50-85)
[2016-10-11 06:51] LABS: Calcium 9.2 MG/DL (8.5-10.1); Magnesium 2.2 MG/DL (1.8-2.4); Osmolality,Calculated 280.5 MOS/KG (273-304); Potassium 4.2 MMOL/L (3.5-5.1)
[2016-10-11] MEDS: CARVEDILOL 6.25 MG TABLET PO SCH ×2 (08:09→23:12)
[2016-10-11] MEDS: cloNIDine 0.1 MG TABLET PO SCH (08:09)
[2016-10-11] MEDS: LOSARTAN 50 MG TABLET PO SCH (08:09)
[2016-10-11] MEDS: hydroCHLOROthiazide 12.5 MG CAPSULE PO SCH (08:09)
[2016-10-11] MEDS: TOLTERODINE LA 4 MG CAPSULE PO SCH (08:09)
[2016-10-11] MEDS: PANTOPRAZOLE 40 MG TABLET PO SCH (08:10)
[2016-10-11] MEDS: FUROSEMIDE 40 MG TABLET PO SCH (08:10)
[2016-10-11] MEDS: DOCUSATE SODIUM 100 MG CAPSULE PO SCH ×2 (08:12→23:12)
[2016-10-11] MEDS: MOMETASONE 0.1% CREAM 15 GM TUBE TOP SCH (08:14)
[2016-10-11] MEDS: FLUTICASONE/SALMETEROL 250-50 DISKUS 14 DOSE INH SCH ×2 (08:14→23:13)
[2016-10-11] MEDS: BUDESONIDE/FORMOTEROL 80-4.5 INHALER 6.9 GM INH SCH (08:14)
--- NOTE | 2016-10-11 09:01 | Family Practice Progress Note ---
Family Practice - PN: Subj Interval history: Patient seen. She remains with some shortness of breath especially with walking. She does have component of diastolic dysfunction and obstructive pulmonary disease. White count is 15.7, her creatinine is 1.6 slightly elevated from 1.3. In no acute distress otherwise. Her weight is pretty much stable at this time and she is afebrile. Continue to monitor Exam (Progress Note) - Constitutional Vitals: Period Temp Pulse Resp BP Sys/Rocha Pulse Ox Last 24 Hr 97.2 F-98 F 74-100 16-24 109-137/64-80 93-99 Exam: General examination is unchanged. HEENT is negative Cardiovascular rate regular no gallop or rub Lungs few basilar rales but generally clear otherwise. Still mild shortness of breath with exertion Abdomen soft nondistended Results - Labs CBC & BMP: 10/11/16 05:37 10/11/16 05:37 Assessment and Plan (1) severe dyspnea with exertion Status: Acute Assessment and plan: 10/10/2016: Continuing current regimen of breathing treatments and medications Current Visit: Yes (2) COPD (chronic obstructive pulmonary disease) Status: Chronic Assessment and plan: 10/10/2016. Patient is on albuterol. O2 sats are 92% on 2 L of O2 Current Visit: No
--- NOTE | 2016-10-11 10:00 | Pulmonology Progress Note ---
Pulmonary - PN: Subj Interval history: This 80-year-old white female has had gradually worsening shortness of breath over the last month. She is a former smoker and has had a left lower lobectomy for lung cancer. She had some peripheral edema. We did a CT PE protocol yesterday and there was no evidence of embolism. In fact her lungs were clear and there were no pleural effusions. I do think she has some acute bronchitis. I have stopped her IV fluids because of the peripheral edema. Her renal function appears intact. Her BNP was low at 46 which would certainly argue against any congestive heart failure. She had venous Dopplers were negative for DVT. I think some of her edema and dyspnea are due to her weight and inactivity. There is some debilitation from lack of activity. 10/11/2016 patient feels a little better this morning. She complains of leg pain. Venous Dopplers were negative. Exam (Progress Note) - Constitutional Vitals: Period Temp Pulse Resp BP Sys/Rocha Pulse Ox Last 24 Hr 97.2 F-98.1 F 74-100 16-24 109-137/64-85 93-99 Exam: Patient is alert sitting up in a chair. Vital signs are normal. Pupils react to light. Throat is clear. Neck supple no bruits. Chest is clear I do not hear any rales or wheezes. Heart normal rate and rhythm no murmurs. Abdomen obese unable to palpate abdominal organs. Extremities she has a trace to 1+ peripheral edema. Calves are nontender. Little change from yesterday. Results - Labs CBC & BMP: 10/11/16 05:37 10/11/16 05:37 Lab Results: I have reviewed the past 24 hour labs Assessment and Plan (1) Acute diastolic congestive heart failure Status: Acute Assessment and plan: She has edema and orthopnea and history of diastolic congestive heart failure. She has some mild. I do not have a chest x-ray BNP or echo back as yet. However I think she likely has some heart failure. Would suggest diuresing her and stopping IV fluids. Her creatinine is 1.4. She has had a previous left nephrectomy. 10/10/2016 I think she is a little ahead on fluids but I do not see any signs of acute heart failure. 10/11/2016 responding to diuretics. Weight is down a kilogram. 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 [place] to be in remission. Dr. Lowe is treated in the past. Dr. Durbin did her surgery. 10/10/2016 shortly no evidence of recurrence of her cancer on CT scan. 10/11/2016 appears to be in remission. 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 Sneed about 2 years ago. 10/10/2016 creatinine 1.3. Renal function actually better after the CT contrast study. Current Visit: No (4) COPD (chronic obstructive pulmonary disease) Status: Chronic Assessment and plan: She stopped smoking about 30 years ago but does have a diagnosis of COPD. Dr. Leyva has followed her in the past and will shredder picker on Wednesday. 10/10/2016 empirically treating her for exacerbation of COPD. 10/11/2016 continuing bronchodilators. Current Visit: No (5) severe dyspnea with exertion Status: Acute Assessment and plan: It is not clear how much of this is from congestive heart failure or COPD. I am concerned about a possible pulmonary embolism was her bilateral leg swelling and pain. Will get venous Dopplers and a CT PE protocol. Creatinine of 1.4 should allow her to have that. 10/10/2016 this is multifactorial. Pulmonary embolus has been ruled out. Patient does have some diastolic congestive heart failure by history but her BNP is normal. Probably has COPD. Obesity and inactivity with physical deconditioning. Had negative venous Dopplers as well. Current Visit: Yes
--- NOTE | 2016-10-11 12:49 | Cardiology Progress Note ---
Cardiology - PN: Subj Interval history: Cardiology note 80-year-old woman with bronchitis superimposed on chronic dyspnea No cough. No fever. Short of breath with mild activity. 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 Jose Antonio Sneed for hypernephroma Leg edema-Cardizem was discontinued Plan Nebs 40 mg Lasix daily Currently on Coreg 6.25 mg twice daily and losartan 50 mg daily. Recheck BMP in a.m. watch renal function closely with single kidney Exam (Progress Note) - Constitutional Vitals: Period Temp Pulse Resp BP Sys/Rocha Pulse Ox Last 24 Hr 97.3 F-98.5 F 74-100 16-24 109-132/64-85 93-99 Result/EKG - Labs CBC & BMP: 10/11/16 05:37 10/11/16 05:37 Labs: Laboratory Results - last 24 hr 10/11/16 10/11/16 05:37 05:37 WBC 15.7 H RBC 4.85 Hgb 13.8 Hct 42.8 MCV 88.2 MCH 29 MCHC 32.2 RDW 15.9 Plt Count 329 MPV 10.5 Neut % (Auto) 77.8 H Lymph % (Auto) 8.3 L [place] % (Auto) 5.0 Eos % (Auto) 1.5 Baso % (Auto) 0.4 Neut # (Auto) 12.2 H Lymph # (Auto) 1.3 L [place] # (Auto) 0.8 Eos # (Auto) 0.2 Baso # (Auto) 0.1 Total Counted 100 Immature Gran % 7.0 Nucleated RBC % 0.3 Immature Gran # 1.09 Segmented Neutrophils 82 Lymphocytes 10 L Monocytes 8 Nucleated RBCs # 0.04 Platelet Estimate Normal Polychromasia Few Ovalocytes 1+ Sodium 139 Potassium 4.2 Chloride 101 Carbon Dioxide 28 Anion Gap 14.2 BUN 24 H Creatinine 1.60 H GFR Calculation 38 BUN/Creatinine Ratio 15.00 Glucose 100 Calculated Osmolality 280.5 Calcium 9.2 Magnesium 2.2
[2016-10-12] MEDS: ALBUTEROL/IPRATROPIUM 3 ML NEB RESP TX SCH ×4 (00:21→20:05)
[2016-10-12 03:23] LABS: Basophils # 0.1 10*3/uL (0.0-0.2); Basophils % 0.5 % (0.0-0.8); Eosinophils # 0.2 10*3/uL (0.0-0.87); Eosinophils % 1.6 % (0.00-10.9); Hematocrit 40.9 VOL% (35.7-47.0); Hemoglobin 13.1 GM/DL (12.0-16.0); Immature Granulocytes % 6.2 %; Immature Granulocytes Absolute 0.87 #; Lymphocytes # 1.3 10*3/uL (1.4-4.0); Lymphocytes % 9.4 % (21.3-54.2); Mean Corpuscular Hemoglobin 28 PG (27-34); Mean Platelet Volume 10.8 FL (9.6-12.0); Monocytes # 0.7 10*3/uL (0.11-0.8); Monocytes % 4.7 % (1.7-12.7); NRBC # 0.02 10*3/uL; Neutrophils # 10.8 10*3/uL (1.4-7.4); Neutrophils % 77.6 % (38.7-73.9); Platelet Count 353 T/CUMM (130-400); Red Cell Distribution Width 15.9 % (9.3-17.3)
[2016-10-12 03:28] LABS: Calcium 8.7 MG/DL (8.5-10.1); Magnesium 2.1 MG/DL (1.8-2.4); Osmolality,Calculated 279.8 MOS/KG (273-304); Potassium 4.5 MMOL/L (3.5-5.1)
[2016-10-12 04:01] LABS: Eosinophils 4 % (0-10); Lymphocytes 20 % (20-55); Metamyelocytes 1 %; Myelocytes 1 %; Nucleated Red Blood Cells 1 (0-5); Platelet Estimate Normal; Promyelocytes 2 %; Segmented Neutrophils 66 % (50-85); Total Cells Counted 100
--- NOTE | 2016-10-12 08:28 | Family Practice Progress Note ---
Family Practice - PN: Subj Interval history: Patient states she feels better overall. Still does not feel like she is back to baseline. Still not ambulating much. Encourage patient increase activity today. Appreciate assistance from consultants. Her lung johnson are clear to auscultation this a.m. Main complaint is burning and stinging in her legs. Edema has resolved. Appears to be more of a problem of the stasis dermatitis. Physical exam is otherwise stable. We will continue present treatment plan hopefully can discharge in a.m. Exam (Progress Note) - Constitutional Vitals: Period Temp Pulse Resp BP Sys/Rocha Pulse Ox Last 24 Hr 97.2 F-98.6 F 20-104 18-24 107-164/66-86 92-99 Results - Labs CBC & BMP: 10/12/16 01:59 10/12/16 01:59 Assessment and Plan (1) severe dyspnea with exertion Status: Acute Assessment and plan: Patient not able to function at present with a level of dyspnea. I am not able to determine the exact etiology but is probably multifactorial in nature. In view of degree of symptoms will admit for further evaluation and therapy Current Visit: Yes (2) known diastolic dysfunction Status: Chronic Assessment and plan: Patient has been evaluated by Dr. Caicedo in the past. We'll consult Dr. Caicedo for his assistance Current Visit: Yes (3) COPD (chronic obstructive pulmonary disease) Status: Chronic Assessment and plan: Patient has been evaluated by pulmonary in the past. She presently uses an Advair inhaler on a daily basis. 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
--- NOTE | 2016-10-12 08:53 | Pulmonology Progress Note ---
Pulmonary - PN: Subj Interval history: Patient is a 80-year-old white lady that has had a history of lung cancer in the past. She has had a previous left lower lobectomy. She has a component of COPD. She has also had a left nephrectomy for renal cell cancer. She came in with shortness of breath and chest congestion and was felt to have mild diastolic heart failure. She was also felt to have some bronchitis with slight pneumonia and she is feeling much better now. She says she is walking around some and her shortness of breath is much improved. She is not coughing as much now. Her chest x-ray looks better. Overall she feels much better. Exam (Progress Note) - Constitutional Vitals: Period Temp Pulse Resp BP Sys/Rocha Pulse Ox Last 24 Hr 97.2 F-98.6 F 20-104 18-24 107-164/66-86 92-99 General appearance: no acute distress (The patient is sitting up and looks comfortable.), over weight - Head Head exam: Present: normal inspection, normocephalic - Eye Eye exam: Present: EOMI. Absent: scleral icterus Pupils: Present: RUPERTO - ENT ENT exam: Present: normal exam - Neck Neck exam: Present: normal inspection. Absent: lymphadenopathy, thyromegaly - Respiratory Respiratory exam: Present: clear to auscultation bilaterally. Absent: accessory muscle use, wheezes - Cardiovascular Cardiovascular exam: Present: regular rate and rhythm. Absent: gallop, systolic murmur - GI/Abdominal GI/Abdominal exam: Present: normal bowel sounds, soft. Absent: organomegaly, tenderness - Extremities Exam Extremities exam: Present: edema (She has trace ankle edema). Absent: calf tenderness - Neurological Exam Neurological exam: Present: alert, oriented X3, CN II-XII intact - Psychiatric Psychiatric exam: Present: normal affect, normal mood. Absent: anxious - Skin Skin exam: Present: warm, dry Results - Labs CBC & BMP: 10/12/16 01:59 10/12/16 01:59 - Diagnostic Findings Procedure: Chest x-ray: image reviewed by me, report reviewed by me (Chest x- ray is improved with no infiltrates.) Assessment and Plan (1) hypertension Status: Chronic Assessment and plan: Her blood pressure has been reasonably stable so far. 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 Her creatinine is 1.9 now. Current Visit: No (4) COPD (chronic obstructive pulmonary disease) Status: Chronic Assessment and plan: Patient has a component of COPD and get short of breath easily. Her acute episode is better however. Current Visit: No (5) severe dyspnea with exertion Status: Acute Assessment and plan: The patient was felt to have bronchitis and mild diastolic dysfunction and is better now. Her creatinine was up and will cut back on her diuretics. Current Visit: Yes (6) Acute diastolic congestive heart failure Status: Acute Assessment and plan: She apparently diuresed fairly well and is breathing better. Current Visit: Yes
[2016-10-12] MEDS: FLUTICASONE/SALMETEROL 250-50 DISKUS 14 DOSE INH SCH ×2 (10:11→21:35)
[2016-10-12] MEDS: hydroCHLOROthiazide 12.5 MG CAPSULE PO SCH (10:12)
[2016-10-12] MEDS: DOCUSATE SODIUM 100 MG CAPSULE PO SCH ×2 (10:12→21:36)
[2016-10-12] MEDS: CARVEDILOL 6.25 MG TABLET PO SCH ×2 (10:14→21:36)
[2016-10-12] MEDS: FUROSEMIDE 40 MG TABLET PO SCH (10:15)
[2016-10-12] MEDS: LOSARTAN 50 MG TABLET PO SCH (10:15)
[2016-10-12] MEDS: cloNIDine 0.1 MG TABLET PO SCH (10:15)
[2016-10-12] MEDS: PANTOPRAZOLE 40 MG TABLET PO SCH (10:16)
[2016-10-12] MEDS: TOLTERODINE LA 4 MG CAPSULE PO SCH (10:16)
[2016-10-12] MEDS: MOMETASONE 0.1% CREAM 15 GM TUBE TOP SCH (10:16)
[2016-10-12] MEDS: BUDESONIDE/FORMOTEROL 80-4.5 INHALER 6.9 GM INH SCH (10:18)
--- NOTE | 2016-10-12 11:22 | Cardiology Progress Note ---
Tim Salcedo Vanessa, RN, am scribing for, and in the presence of, Yahaira Parra MD 11:21. Assessment and Plan - Time spent with patient Time spent with patient: Greater than 30 minutes (1) COPD (chronic obstructive pulmonary disease) Status: Chronic Assessment and plan: SEE PLAN OF CARE LISTED BELOW. Current Visit: No (2) gastroesophageal reflux disease Status: Chronic Assessment and plan: SEE PLAN OF CARE LISTED BELOW. Current Visit: No (3) hypertension Status: Chronic Assessment and plan: SEE PLAN OF CARE LISTED BELOW. Current Visit: No (4) Hx of cancer of lung Status: Chronic Assessment and plan: SEE PLAN OF CARE LISTED BELOW. Current Visit: Yes (5) known diastolic dysfunction Status: Chronic Assessment and plan: SEE PLAN OF CARE LISTED BELOW. Current Visit: Yes (6) Anemia Status: Acute Assessment and plan: SEE PLAN OF CARE LISTED BELOW. Current Visit: No (7) Bronchitis Status: Acute Assessment and plan: SEE PLAN OF CARE LISTED BELOW. Current Visit: Yes Cardiology - PN: Subj Interval history: PRIMARY ARTISTIC DIRECTOR: DR. COLEMAN PCP: DR. MELCHOR SUMMARY: Ms. Valladares is a 80 year old white female with risk factors significant for hypertension, advanced age. Past medical history includes COPD, diastolic dysfunction, and lung cancer. She was directly admitted to the hospital from Dr. Melchor's office on 10/09 for further evaluation of severe dyspnea on exertion. Since admission, she has had echocardiogram which showed LV ejection fraction of 60%, grade 1/4 diastolic dysfunction, pulmonary hypertension with PA pressure of 55-60 mmHg. DVT and PE have also been ruled out sources of dyspnea. She has been treated for bronchitis during hospital admission, and Dr. Leyva is also following for pulmonary. No complaints this morning. Vitals have been overall stable. From a cardiac standpoint, she is hemodynamically stable. We have nothing further to add at this time, and we will sign off. Please reconsult us if we can be of assistance during admission. ASSESSMENT/PLAN: 1. CHRONIC HYPERTENSION - Blood pressure is overall well controlled. Continue current care. 2. DYSPNEA WITH EXERTION - Patient has been ruled out for DVT and PE as source of her dyspnea. There are no clinical findings for ACS. 3. KNOWN DIASTOLIC DYSFUNCTION - She had previously been evaluated by Dr. Caicedo and treated for diastolic dysfunction. Echocardiogram during current hospitalization reveals LV ejection fraction of 60% with mild diastolic dysfunction. Overt S/S of congestive heart failure at this time. 4. BRONCHITIS -Defer treatment to pulmonary. Shortness of breath could be secondary to acute upper respiratory infection. 5. GERD- Continue PPI. Exam (Progress Note) - Constitutional Vitals: Period Temp Pulse Resp BP Sys/Rocha Pulse Ox Last 24 Hr 97.2 F-98.6 F 20-104 18-24 107-164/66-86 92-99 Exam: General appearance: normal weight, no acute distress - Head Head exam: Present: normal inspection, normocephalic, atraumatic. Absent: hematoma, laceration - Eye Eye exam: Present: EOMI. Absent: conjunctival injection, nystagmus, periorbital swelling, scleral icterus, laceration to eyelids Pupils: Present: PERRL. Absent: constricted, dilated, fixed, irregular, unequal - ENT ENT exam: Present: normal exam, normal external ear exam - Neck Neck exam: Present: normal inspection. Absent: lymphadenopathy, meningismus, tenderness, thyromegaly - Respiratory Respiratory exam: Present: clear to auscultation bilaterally. Absent: accessory muscle use, chest wall tenderness - Cardiovascular Cardiovascular exam: Present: regular rate and rhythm. Absent: carotid bruit, gallop, JVD, rubs - GI/Abdominal GI/Abdominal exam: Present: normal bowel sounds, soft. Absent: distended, firm , guarding, hernia, mass, tenderness, rebound. - Extremities Exam Extremities exam: Present: 1+ bilateral lower extremity edema left greater than right. Absent: calf tenderness - Back Exam Back exam: Present: normal inspection. Absent: muscle spasm, vertebral tenderness - Neurological Exam Neurological exam: Present: alert, oriented X3, grossly intact without resting or intention tremor - Psychiatric Psychiatric exam: Present: normal affect, normal mood - Skin Skin exam: Present: normal color, warm, dry, intact. Absent: cyanosis, diaphoretic, rash, urticaria Result/EKG - Labs CBC & BMP: 10/12/16 01:59 10/12/16 01:59 Lab Results: I have reviewed the past 24 hour labs Labs: Laboratory Results - last 24 hr 10/12/16 10/12/16 01:59 01:59 WBC 14.0 H RBC 4.70 Hgb 13.1 Hct 40.9 MCV 87.0 MCH 28 MCHC 32.0 RDW 15.9 Plt Count 353 MPV 10.8 Neut % (Auto) 77.6 H Lymph % (Auto) 9.4 L [place] % (Auto) 4.7 Eos % (Auto) 1.6 Baso % (Auto) 0.5 Neut # (Auto) 10.8 H Lymph # (Auto) 1.3 L [place] # (Auto) 0.7 Eos # (Auto) 0.2 Baso # (Auto) 0.1 Total Counted 100 Immature Gran % 6.2 Nucleated RBC % 0.1 Immature Gran # 0.87 Segmented Neutrophils 66 Lymphocytes 20 Monocytes 6 Eosinophils 4 Metamyelocytes 1 Myelocytes 1 Promyelocytes 2 Nucleated RBCs 1 Nucleated RBCs # 0.02 Platelet Estimate Normal Pappenheimer Bodies Flanging Machine Operator Sodium 137 Potassium 4.5 Chloride 98 Carbon Dioxide 30 Anion Gap 13.5 BUN 28 H Creatinine 1.90 H GFR Calculation 31 BUN/Creatinine Ratio 14.00 Glucose 111 H Calculated Osmolality 279.8 Calcium 8.7 Magnesium 2.1 - Diagnostic Findings Procedure: Chest x-ray: image reviewed by me, report reviewed by me - EKG EKG results: interpreted by me, no acute changes IFidel Jennifer, MD, personally performed the services described in this documentation, ascribed by Izzy Dumont RN in my presence, and it is both accurate and complete .
[2016-10-13] MEDS: ALBUTEROL/IPRATROPIUM 3 ML NEB RESP TX SCH ×3 (01:50→12:20)
[2016-10-13 06:53] LABS: Basophils # 0.1 10*3/uL (0.0-0.2); Basophils % 0.5 % (0.0-0.8); Eosinophils # 0.2 10*3/uL (0.0-0.87); Eosinophils % 1.5 % (0.00-10.9); Hematocrit 40.8 VOL% (35.7-47.0); Hemoglobin 12.9 GM/DL (12.0-16.0); Immature Granulocytes % 6.2 %; Immature Granulocytes Absolute 0.81 #; Lymphocytes % 7.9 % (21.3-54.2); Mean Corpuscular HGB Conc 31.6 GM/DL (32-36); Mean Corpuscular Hemoglobin 28 PG (27-34); Mean Corpuscular Volume 88.7 FL (87-102); Mean Platelet Volume 10.4 FL (9.6-12.0); Monocytes # 0.6 10*3/uL (0.11-0.8); Monocytes % 4.6 % (1.7-12.7); Neutrophils # 10.3 10*3/uL (1.4-7.4); Neutrophils % 79.3 % (38.7-73.9); Platelet Count 324 T/CUMM (130-400); Red Cell Distribution Width 15.9 % (9.3-17.3)
[2016-10-13 07:14] LABS: Hypochromasia 1+; Lymphocytes 9 % (20-55); Platelet Estimate Adequate; Segmented Neutrophils 89 % (50-85); Total Cells Counted 100
[2016-10-13 07:28] LABS: Calcium 8.7 MG/DL (8.5-10.1); Magnesium 2.4 MG/DL (1.8-2.4); Osmolality,Calculated 282.7 MOS/KG (273-304); Potassium 4.1 MMOL/L (3.5-5.1); Risk Ratio 4.23; VLDL CHOLESTEROL 61.8 MG/DL
--- NOTE | 2016-10-13 08:10 | Discharge Summary ---
Hospital Course - Hospital Course Hospital Course: Ms. Valladares is a 80 year old female 80-year-old white female well known to me who was seen in the clinic complaining of progressive dyspnea. Patient states that symptoms have progressed to the point that she is not able to walk across the room or do any activity without severe dyspnea. Patient is dyspneic at rest. She denies cough congestion chest pain or other related complaints. She has had some similar symptoms in the past and has been evaluated by Dr. Caicedo. She was felt to have a component of diastolic dysfunction and her medications were regulated.. She is also seeing Dr. Leyva in the past and has been placed on bronchodilators. Her lung johnson are actually clear to auscultation at present and chest x-ray done earlier this week is unremarkable. Family states that she has to stop every few feet in order to be able to ambulate. Family relates that there's been a significant change in her breathing. Her O2 sats in the clinic were 91%. Patient states she's having to sit up on the side of the bed in order to sleep. In view of the degree of symptoms with no clear-cut diagnosis a plan to admit for more aggressive evaluation and therapy. This is likely multifactorial in nature. Hospital course-patient was admitted to hospital lab and x-ray studies obtained. Patient was seen in consultation by cardiology and pulmonary. It was felt that her symptoms were multifactorial and medications were fine-tuned. Is also felt that a component of her symptoms are due to lack of activity. Multiple studies including chest CT, venous Doppler, chest x-ray and cardiac echo were performed. Patient is had a slow but steady improvement throughout admission is generally much improved at time of discharge. Will discharge to home care and arrange follow-up in the office. 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 Discharge Plan - Discharge Data Disposition: Disch To Home/Self Care Condition at Discharge: Stable Discharge Diet: advance to your usual diet Activity: resume usual activities as tolerated Weight Bearing at Discharge: full weight bearing Contact your physician if you experience:: fever over 101, Shortness of breath - Discharge Medications Continue HYDROcodone/ACETAMIN 5-325 [Talent 5-325] 1 - 2 tablet PO Q4H PRN #20 tablet PRN Reason: Pain Moderate (4-7) Losartan Potassium 50 mg PO DAILY Furosemide Tab [Lasix Tab] 40 mg PO DAILY Fluticasone/Salmeterol 250-50 [Advair 250-50] 1 inhaler INH BID Budesonide/Formoterol 80-4.5 [Symbicort 80-4.5] 1 inhaler INH DAILY Mometasone Furoate [Mometasone 0.1% Cream] 1 applic TOP DAILY Carvedilol [Coreg] 6.25 mg PO BID - Follow Up or Referral Follow Up: Marco Antonio Melchor DO [Primary Care Provider] - 2 Weeks - Forms/Instructions Exam - Constitutional Vitals: Period Temp Pulse Resp BP Sys/Rocha Pulse Ox Last 24 Hr 96.6 F-97.6 F 68-95 18-30 104-145/56-68 92-99 General appearance: no acute distress - Head Head exam: Present: normal inspection - Eye Pupils: Present: RUPERTO - ENT ENT exam: Present: normal exam - Neck Neck exam: Present: normal inspection - Respiratory Respiratory exam: Present: clear to auscultation bilaterally - Cardiovascular Cardiovascular exam: Present: regular rate and rhythm - GI/Abdominal GI/Abdominal exam: Present: normal bowel sounds, soft - Extremities Exam Extremities exam: Present: normal inspection - Back Exam Back exam: Present: normal inspection - Neurological Exam Neurological exam: Present: alert - Psychiatric Psychiatric exam: Present: normal affect - Skin Skin exam: Present: normal color Discharge Results Procedures and tests throughout hospitalization: Pending Orders 10/14/16 04:00 BMP w/ Mg [Basic Metabolic Panel w/Mg] IN AM CBC [Comp Blood Count Auto Diff] IN AM 10/15/16 04:00 BMP w/ Mg [Basic Metabolic Panel w/Mg] IN AM CBC [Comp Blood Count Auto Diff] IN AM 10/16/16 04:00 BMP w/ Mg [Basic Metabolic Panel w/Mg] IN AM CBC [Comp Blood Count Auto Diff] IN AM Labs on day of discharge: Labs from last 24 hours 10/13/16 10/13/16 06:29 06:29 WBC 13.0 H RBC 4.60 Hgb 12.9 Hct 40.8 MCV 88.7 MCH 28 MCHC 31.6 L RDW 15.9 Plt Count 324 MPV 10.4 Neut % (Auto) 79.3 H Lymph % (Auto) 7.9 L [place] % (Auto) 4.6 Eos % (Auto) 1.5 Baso % (Auto) 0.5 Neut # (Auto) 10.3 H Lymph # (Auto) 1.0 L [place] # (Auto) 0.6 Eos # (Auto) 0.2 Baso # (Auto) 0.1 Total Counted 100 Immature Gran % 6.2 Nucleated RBC % 0.0 Immature Gran # 0.81 Segmented Neutrophils 89 H Lymphocytes 9 L Monocytes 2 Nucleated RBCs # 0.00 Platelet Estimate Adequate Hypochromasia 1+ Morphology Comment Sodium 138 Potassium 4.1 Chloride 99 Carbon Dioxide 29 Anion Gap 14.1 BUN 31 H Creatinine 1.70 H GFR Calculation 35 BUN/Creatinine Ratio 18.00 Glucose 112 H Calculated Osmolality 282.7 Calcium 8.7 Magnesium 2.4 Triglycerides 309 H Cholesterol 186 LDL Cholesterol 100.0 VLDL Cholesterol 61.8 HDL Cholesterol 44 Heart Disease Risk Ratio 4.23 DS: Provider Date of admission: 10/09/16 09:09 Primary care physician: Marco Antonio Melchor DO Attending physician on admission: Marco Antonio Melchor DO Consults: 10/09/16 08:35 Consult to Physician [CONS] Routine Comment: dyspnea with known diastolic dysfunction Consulting Provider: Fredy Caicedo Person Notified: [email or web address] Date Notified: 10/09/16 Time Notified: 09:56 10/09/16 08:41 Consult to Physician [CONS] Routine Comment: severe dyspnea with exertion Consulting Provider: Sebastian Leyva Discharging clinician: Marco Antonio Melchor DO
--- NOTE | 2016-10-13 09:29 | Pulmonology Progress Note ---
Pulmonary - PN: Subj Interval history: Patient is a 80-year-old white lady that has had a history of lung cancer in the past. She has had a previous left lower lobectomy. She has a component of COPD. She has also had a left nephrectomy for renal cell cancer. She came in with shortness of breath and chest congestion and was felt to have mild diastolic heart failure. She was also felt to have some bronchitis with slight pneumonia and she is feeling much better now. She says she is walking around some and her shortness of breath is much improved. She is not coughing as much now. Her chest x-ray looks better. She does complain of some swelling in her legs but otherwise is doing well. She feels like her breathing is better. Her O2 saturation is good off oxygen. She may not qualify for oxygen. She is going home today and will continue her present therapy. Exam (Progress Note) - Constitutional Vitals: Period Temp Pulse Resp BP Sys/Rocha Pulse Ox Last 24 Hr 96.6 F-97.6 F 68-95 18-30 104-145/56-68 92-99 Exam: General appearance: no acute distress (The patient is sitting up and looks comfortable. She is not having any respiratory distress.), over weight - Head Head exam: Present: normal inspection, normocephalic - Eye Eye exam: Present: EOMI. Absent: scleral icterus Pupils: Present: RUPERTO - ENT ENT exam: Present: normal exam - Neck Neck exam: Present: normal inspection. Absent: lymphadenopathy, thyromegaly - Respiratory Respiratory exam: Present: Her lungs have very slight crackles in the bases. I do not hear any wheezing. - Cardiovascular Cardiovascular exam: Present: regular rate and rhythm. Absent: gallop, systolic murmur - GI/Abdominal GI/Abdominal exam: Present: normal bowel sounds, soft. Absent: organomegaly, tenderness - Extremities Exam Extremities exam: Present: She does have trace ankle edema at present. She has no calf tenderness. - Neurological Exam Neurological exam: Present: alert, oriented X3, CN II-XII intact - Psychiatric Psychiatric exam: Present: normal affect, normal mood. Absent: anxious - Skin Skin exam: Present: warm, dry Results - Labs CBC & BMP: 10/13/16 06:29 10/13/16 06:29 Assessment and Plan (1) hypertension Status: Chronic Assessment and plan: Her blood pressure has been reasonably stable so far. She has no signs of heart failure now. 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 Her creatinine is 1.7 now. Current Visit: No (4) COPD (chronic obstructive pulmonary disease) Status: Chronic Assessment and plan: Patient has a component of COPD and get short of breath easily. She is not wheezing now and feels better. Current Visit: No (5) severe dyspnea with exertion Status: Acute Assessment and plan: The patient was felt to have bronchitis and mild diastolic dysfunction and is better now. She looks like she is close to baseline now. Will have her walk around and see if she qualifies for home O2. Current Visit: Yes (6) Acute diastolic congestive heart failure Status: Acute Assessment and plan: She apparently diuresed fairly well and is breathing better. Current Visit: Yes Specialty Discharge - Follow Up or Referrals Follow up with: Marco Antonio Melchor DO [Primary Care Provider] - 10/27/16 11:15 am
[2016-10-13] MEDS: MOMETASONE 0.1% CREAM 15 GM TUBE TOP SCH (09:35)
[2016-10-13] MEDS: FLUTICASONE/SALMETEROL 250-50 DISKUS 14 DOSE INH SCH (09:35)
[2016-10-13] MEDS: BUDESONIDE/FORMOTEROL 80-4.5 INHALER 6.9 GM INH SCH (09:35)
[2016-10-13] MEDS: cloNIDine 0.1 MG TABLET PO SCH (09:38)
[2016-10-13] MEDS: CARVEDILOL 6.25 MG TABLET PO SCH (09:38)
[2016-10-13] MEDS: TOLTERODINE LA 4 MG CAPSULE PO SCH (09:38)
[2016-10-13] MEDS: FUROSEMIDE 40 MG TABLET PO SCH (09:38)
[2016-10-13] MEDS: LOSARTAN 50 MG TABLET PO SCH (09:38)
[2016-10-13] MEDS: hydroCHLOROthiazide 12.5 MG CAPSULE PO SCH (09:38)
[2016-10-13] MEDS: PANTOPRAZOLE 40 MG TABLET PO SCH (09:38)
[2016-10-13] MEDS: DOCUSATE SODIUM 100 MG CAPSULE PO SCH (09:38)
[2016-10-13 14:34] VITALS: BP 126/65
== END 2016-10-13 03:50 | disposition home or self-care (01) | DRG 191 ==
LOC: N.2E 09:09
PROVIDERS: ADMIT Family Medicine; ATTEND Family Medicine

== ENCOUNTER 2017-06-04 11:20 | Inpatient (IN) ==
[2017-06-04] MEDS ORDERED: ONDANSETRON 4 MG/2 ML VIAL IV PRN (11:46)
[2017-06-04 19:28] LABS: Basophils # 0.1 10*3/uL (0.0-0.2); Basophils % 0.6 % (0.0-0.8); Eosinophils # 0.3 10*3/uL (0.0-0.87); Hematocrit 40.6 VOL% (35.7-47.0); Hemoglobin 12.4 GM/DL (12.0-16.0); Immature Granulocytes % 6.4 %; Immature Granulocytes Absolute 0.93 #; Lymphocytes # 0.9 10*3/uL (1.4-4.0); Lymphocytes % 6.2 % (21.3-54.2); Mean Corpuscular HGB Conc 30.5 GM/DL (32-36); Mean Corpuscular Hemoglobin 27 PG (27-34); Mean Platelet Volume 10.4 FL (9.6-12.0); Monocytes # 0.7 10*3/uL (0.11-0.8); Monocytes % 4.5 % (1.7-12.7); NRBC # 0.03 10*3/uL; Neutrophils # 11.6 10*3/uL (1.4-7.4); Neutrophils % 80.3 % (38.7-73.9); Platelet Count 385 T/CUMM (130-400); Red Blood Count 4.56 MC/CUMM (3.8-5.5); Red Cell Distribution Width 15.9 % (9.3-17.3); White Blood Count 14.4 T/CUMM (4-12)
[2017-06-04] MEDS: ALBUTEROL/IPRATROPIUM 3 ML NEB RESP TX SCH (19:31)
[2017-06-04 19:48] LABS: Albumin 3.5 G/DL (3.4-5.0); Calcium 7.7 MG/DL (8.5-10.1); Osmolality,Calculated 280.3 MOS/KG (273-304); Potassium 3.5 MMOL/L (3.5-5.1)
[2017-06-04] MEDS: SODIUM CHLORIDE 0.45% 1,000 ML IV SCH (21:29)
[2017-06-04] MEDS: LEVOFLOXACIN INJ 500 MG in PREMIX 1 EACH IV SCH (21:29)
[2017-06-04] MEDS: CARVEDILOL 6.25 MG TABLET PO SCH (21:30)
[2017-06-04] MEDS: methylPREDNISolone SOD SUC 40 MG/1 ML VIAL IV SCH (21:30)
[2017-06-04] MEDS: FLUTICASONE/SALMETEROL 250-50 DISKUS 14 DOSE INH SCH (21:30)
[2017-06-04 21:37] LABS: Band Neutrophils 4 % (0-10); Eosinophils 2 % (0-10); Lymphocytes 9 % (20-55); Platelet Estimate Normal; Segmented Neutrophils 81 % (50-85); Total Cells Counted 100
[2017-06-04 21:38] LABS: Polychromasia Slight
[2017-06-05] MEDS: ALBUTEROL/IPRATROPIUM 3 ML NEB RESP TX SCH ×6 (00:12→19:40)
[2017-06-05] MEDS: methylPREDNISolone SOD SUC 40 MG/1 ML VIAL IV SCH ×3 (04:14→21:22)
[2017-06-05] MEDS ORDERED: cloNIDine 0.1 MG TABLET PO PRN (05:40)
[2017-06-05 06:57] LABS: Basophils # 0.1 10*3/uL (0.0-0.2); Basophils % 0.4 % (0.0-0.8); Eosinophils % 0.2 % (0.00-10.9); Hematocrit 40.5 VOL% (35.7-47.0); Hemoglobin 12.8 GM/DL (12.0-16.0); Immature Granulocytes % 7.4 %; Lymphocytes # 0.5 10*3/uL (1.4-4.0); Mean Corpuscular HGB Conc 31.6 GM/DL (32-36); Mean Corpuscular Hemoglobin 28 PG (27-34); Mean Platelet Volume 10.5 FL (9.6-12.0); Monocytes # 0.2 10*3/uL (0.11-0.8); Monocytes % 1.2 % (1.7-12.7); Neutrophils # 14.2 10*3/uL (1.4-7.4); Neutrophils % 87.8 % (38.7-73.9); Platelet Count 384 T/CUMM (130-400); Red Cell Distribution Width 15.7 % (9.3-17.3); White Blood Count 16.1 T/CUMM (4-12)
[2017-06-05 07:20] LABS: Potassium 3.8 MMOL/L (3.5-5.1); Thyroid Stimulating Hormone 0.799 uIU/ml (0.358-3.74)
[2017-06-05 07:27] LABS: Band Neutrophils 2 % (0-10); Lymphocytes 1 % (20-55); Segmented Neutrophils 96 % (50-85); Total Cells Counted 100
[2017-06-05 07:28] LABS: Giant Platelets Few; Hypochromasia 1+; Ovalocytes Slight; Platelet Estimate Adequate
[2017-06-05] MEDS: CARVEDILOL 6.25 MG TABLET PO SCH ×2 (08:28→21:22)
[2017-06-05] MEDS: FLUTICASONE/SALMETEROL 250-50 DISKUS 14 DOSE INH SCH ×2 (08:28→21:22)
[2017-06-05] MEDS: LOSARTAN 50 MG TABLET PO SCH (08:28)
[2017-06-05] MEDS: PANTOPRAZOLE 40 MG TABLET PO SCH (08:29)
[2017-06-05] MEDS: SODIUM CHLORIDE 0.45% 1,000 ML IV SCH (08:31)
[2017-06-05] MEDS ORDERED: FUROSEMIDE 40 MG TABLET PO SCH (09:00)
[2017-06-05] MEDS: FUROSEMIDE 40 MG/4 ML VIAL IV SCH ×2 (10:50→16:37)
[2017-06-05] MEDS: POTASSIUM CHLORIDE 10 MEQ TABLET PO SCH (10:53)
[2017-06-05 11:27] LABS: Apearance,Urine CLEAR (Clear); Bilirubin,Urine Negative (Negative); Blood, Urine Negative (Negative); Glucose,Urine (UA) Negative (Negative); Ketones,Urine Negative (Negative); Nitrite,Urine Negative (Negative); Protein,Urine Negative; RBC,Urine <1 /HPF (0-4); Squamous Epithelial Cell,Urine Occasional /HPF (0-10); Urine Color Colorless (Yellow); Urine Specific Gravity 1.002 (1.001-1.035); Urine Urobilinogen < 2.0 EU/DL (0.2-1.0); WBC,Urine 2 /HPF (0-6)
[2017-06-05] MEDS: LEVOFLOXACIN INJ 500 MG in PREMIX 1 EACH IV SCH (21:22)
[2017-06-06] MEDS: ALBUTEROL/IPRATROPIUM 3 ML NEB RESP TX SCH ×7 (03:31→22:55)
[2017-06-06 05:53] LABS: Basophils # 0.1 10*3/uL (0.0-0.2); Basophils % 0.3 % (0.0-0.8); Hematocrit 40.5 VOL% (35.7-47.0); Hemoglobin 12.2 GM/DL (12.0-16.0); Immature Granulocytes % 7.7 %; Lymphocytes # 0.5 10*3/uL (1.4-4.0); Lymphocytes % 2.1 % (21.3-54.2); Mean Corpuscular HGB Conc 30.1 GM/DL (32-36); Mean Corpuscular Hemoglobin 27 PG (27-34); Mean Corpuscular Volume 90.2 FL (87-102); Mean Platelet Volume 10.5 FL (9.6-12.0); Monocytes # 0.5 10*3/uL (0.11-0.8); NRBC # 0.02 10*3/uL; Neutrophils # 20.7 10*3/uL (1.4-7.4); Neutrophils % 87.9 % (38.7-73.9); Platelet Count 417 T/CUMM (130-400); Red Blood Count 4.49 MC/CUMM (3.8-5.5); Red Cell Distribution Width 15.8 % (9.3-17.3); White Blood Count 23.5 T/CUMM (4-12)
[2017-06-06 06:24] LABS: Calcium 8.3 MG/DL (8.5-10.1); Osmolality,Calculated 276.1 MOS/KG (273-304); Potassium 4.1 MMOL/L (3.5-5.1)
[2017-06-06] MEDS: methylPREDNISolone SOD SUC 40 MG/1 ML VIAL IV SCH ×3 (06:53→21:17)
[2017-06-06 07:04] LABS: Giant Platelets Few; Hypochromasia 1+; Lymphocytes 3 % (20-55); Ovalocytes Slight; Platelet Estimate Adequate; Segmented Neutrophils 95 % (50-85); Total Cells Counted 100
[2017-06-06] MEDS: FLUTICASONE/SALMETEROL 250-50 DISKUS 14 DOSE INH SCH ×2 (08:32→21:16)
[2017-06-06] MEDS: PANTOPRAZOLE 40 MG TABLET PO SCH (08:32)
[2017-06-06] MEDS: CARVEDILOL 6.25 MG TABLET PO SCH ×2 (08:32→21:16)
[2017-06-06] MEDS: LOSARTAN 50 MG TABLET PO SCH (08:32)
[2017-06-06] MEDS: POTASSIUM CHLORIDE 10 MEQ TABLET PO SCH (08:32)
[2017-06-06] MEDS: FUROSEMIDE 40 MG/4 ML VIAL IV SCH (08:33)
[2017-06-06] MEDS ORDERED: SODIUM CHLORIDE 0.45% 1,000 ML IV SCH (12:00)
[2017-06-06] MEDS: FUROSEMIDE 20 MG/2 ML VIAL IV SCH (16:10)
[2017-06-06] MEDS: LEVOFLOXACIN INJ 500 MG in PREMIX 1 EACH IV SCH (21:17)
[2017-06-07] MEDS: ALBUTEROL/IPRATROPIUM 3 ML NEB RESP TX SCH ×5 (02:58→20:11)
[2017-06-07] MEDS: methylPREDNISolone SOD SUC 40 MG/1 ML VIAL IV SCH ×3 (03:30→20:50)
[2017-06-07 07:08] LABS: Calcium 8.2 MG/DL (8.5-10.1); Osmolality,Calculated 283.8 MOS/KG (273-304); Potassium 3.8 MMOL/L (3.5-5.1)
[2017-06-07] MEDS: FUROSEMIDE 20 MG/2 ML VIAL IV SCH ×2 (08:55→16:23)
[2017-06-07] MEDS: POTASSIUM CHLORIDE 10 MEQ TABLET PO SCH (08:56)
[2017-06-07] MEDS: FLUTICASONE/SALMETEROL 250-50 DISKUS 14 DOSE INH SCH ×2 (08:56→20:50)
[2017-06-07] MEDS: CARVEDILOL 6.25 MG TABLET PO SCH ×2 (08:56→20:51)
[2017-06-07] MEDS: PANTOPRAZOLE 40 MG TABLET PO SCH (08:56)
[2017-06-07] MEDS: LEVOFLOXACIN INJ 500 MG in PREMIX 1 EACH IV SCH (20:51)
[2017-06-08] MEDS: ALBUTEROL/IPRATROPIUM 3 ML NEB RESP TX SCH ×7 (00:52→23:13)
[2017-06-08 05:27] LABS: Basophils # 0.1 10*3/uL (0.0-0.2); Basophils % 0.3 % (0.0-0.8); Hematocrit 40.2 VOL% (35.7-47.0); Hemoglobin 12.3 GM/DL (12.0-16.0); Immature Granulocytes Absolute 2.06 #; Lymphocytes # 0.4 10*3/uL (1.4-4.0); Lymphocytes % 1.7 % (21.3-54.2); Mean Corpuscular HGB Conc 30.6 GM/DL (32-36); Mean Corpuscular Hemoglobin 28 PG (27-34); Mean Corpuscular Volume 89.9 FL (87-102); Mean Platelet Volume 10.4 FL (9.6-12.0); Monocytes # 0.5 10*3/uL (0.11-0.8); Monocytes % 2.2 % (1.7-12.7); NRBC # 0.02 10*3/uL; Neutrophils # 19.9 10*3/uL (1.4-7.4); Neutrophils % 86.8 % (38.7-73.9); Platelet Count 444 T/CUMM (130-400); Red Blood Count 4.47 MC/CUMM (3.8-5.5); Red Cell Distribution Width 15.7 % (9.3-17.3); White Blood Count 22.9 T/CUMM (4-12)
[2017-06-08 05:55] LABS: Band Neutrophils 2 % (0-10); Giant Platelets Few; Hypochromasia 1+; Lymphocytes 2 % (20-55); Nucleated Red Blood Cells 1 (0-5); Ovalocytes Slight; Platelet Estimate Adequate; Segmented Neutrophils 95 % (50-85); Total Cells Counted 100
[2017-06-08 05:57] LABS: Calcium 7.9 MG/DL (8.5-10.1); Magnesium 2.1 MG/DL (1.8-2.4); Osmolality,Calculated 288.7 MOS/KG (273-304); Potassium 3.8 MMOL/L (3.5-5.1)
[2017-06-08 06:25] LABS: Albumin 3.4 G/DL (3.4-5.0); Bilirubin,Total 0.8 MG/DL (0.2-1.0); Osmolality,Calculated 288.7 MOS/KG (273-304); Potassium 3.8 MMOL/L (3.5-5.1); Total Protein 6.9 G/DL (6.4-8.3)
[2017-06-08] MEDS: PANTOPRAZOLE 40 MG TABLET PO SCH (08:46)
[2017-06-08] MEDS: FUROSEMIDE 20 MG/2 ML VIAL IV SCH ×2 (08:46→17:08)
[2017-06-08] MEDS: POTASSIUM CHLORIDE 10 MEQ TABLET PO SCH (08:46)
[2017-06-08] MEDS: CARVEDILOL 6.25 MG TABLET PO SCH ×2 (08:46→20:31)
[2017-06-08] MEDS: methylPREDNISolone SOD SUC 40 MG/1 ML VIAL IV SCH ×2 (08:47→20:33)
[2017-06-08] MEDS: FLUTICASONE/SALMETEROL 250-50 DISKUS 14 DOSE INH SCH ×2 (08:50→20:38)
[2017-06-08] MEDS ORDERED: POLYETHYLENE GLYCOL POWDER 17 GM PACK PO PRN (16:34)
[2017-06-08] MEDS: LEVOFLOXACIN INJ 500 MG in PREMIX 1 EACH IV SCH (20:38)
[2017-06-09] MEDS: ALBUTEROL/IPRATROPIUM 3 ML NEB RESP TX SCH ×5 (02:24→19:47)
[2017-06-09] MEDS: ACETAMINOPHEN 325 MG TABLET PO PRN (05:45)
[2017-06-09 06:12] LABS: Basophils # 0.1 10*3/uL (0.0-0.2); Basophils % 0.3 % (0.0-0.8); Eosinophils % 0.1 % (0.00-10.9); Hemoglobin 12.5 GM/DL (12.0-16.0); Immature Granulocytes Absolute 1.96 #; Lymphocytes # 0.5 10*3/uL (1.4-4.0); Lymphocytes % 2.1 % (21.3-54.2); Mean Corpuscular HGB Conc 30.5 GM/DL (32-36); Mean Corpuscular Hemoglobin 27 PG (27-34); Mean Corpuscular Volume 89.5 FL (87-102); Mean Platelet Volume 10.3 FL (9.6-12.0); Monocytes # 0.7 10*3/uL (0.11-0.8); Monocytes % 3.2 % (1.7-12.7); NRBC # 0.06 10*3/uL; Neutrophils # 18.7 10*3/uL (1.4-7.4); Neutrophils % 85.3 % (38.7-73.9); Platelet Count 406 T/CUMM (130-400); Red Blood Count 4.58 MC/CUMM (3.8-5.5); Red Cell Distribution Width 15.8 % (9.3-17.3); White Blood Count 21.9 T/CUMM (4-12)
[2017-06-09 06:34] LABS: Band Neutrophils 2 % (0-10); Giant Platelets Few; Hypochromasia 1+; Lymphocytes 2 % (20-55); Ovalocytes Slight; Platelet Estimate Adequate; Segmented Neutrophils 93 % (50-85); Total Cells Counted 100
[2017-06-09 06:50] LABS: Calcium 8.1 MG/DL (8.5-10.1); Osmolality,Calculated 287.7 MOS/KG (273-304); Potassium 4.2 MMOL/L (3.5-5.1)
[2017-06-09] MEDS: FLUTICASONE/SALMETEROL 250-50 DISKUS 14 DOSE INH SCH ×2 (08:38→20:42)
[2017-06-09] MEDS: POTASSIUM CHLORIDE 10 MEQ TABLET PO SCH (08:38)
[2017-06-09] MEDS: PANTOPRAZOLE 40 MG TABLET PO SCH (08:38)
[2017-06-09] MEDS: CARVEDILOL 6.25 MG TABLET PO SCH (08:38)
[2017-06-09] MEDS: methylPREDNISolone SOD SUC 40 MG/1 ML VIAL IV SCH (08:39)
[2017-06-09] MEDS: FUROSEMIDE 20 MG/2 ML VIAL IV SCH ×2 (08:40→15:59)
[2017-06-09] MEDS ORDERED: MAGNESIUM HYDROXIDE SUSP 30 ML UDCUP PO ONE (11:12)
[2017-06-09] MEDS: metOLazone 5 MG TABLET PO SCH (11:31)
[2017-06-09] MEDS: CARVEDILOL 12.5 MG TABLET PO SCH (20:42)
[2017-06-09] MEDS: LEVOFLOXACIN INJ 500 MG in PREMIX 1 EACH IV SCH (20:42)
[2017-06-09] MEDS: MAGNESIUM HYDROXIDE SUSP 30 ML UDCUP PO PRN (20:42)
[2017-06-10] MEDS: ALBUTEROL/IPRATROPIUM 3 ML NEB RESP TX SCH ×7 (00:03→23:10)
[2017-06-10] MEDS: ACETAMINOPHEN 325 MG TABLET PO PRN (00:39)
[2017-06-10 06:28] LABS: Calcium 8.3 MG/DL (8.5-10.1); Osmolality,Calculated 279.2 MOS/KG (273-304); Potassium 4.1 MMOL/L (3.5-5.1)
[2017-06-10] MEDS: metOLazone 5 MG TABLET PO SCH (09:23)
[2017-06-10] MEDS: PANTOPRAZOLE 40 MG TABLET PO SCH (09:23)
[2017-06-10] MEDS: POTASSIUM CHLORIDE 10 MEQ TABLET PO SCH (09:23)
[2017-06-10] MEDS: CARVEDILOL 12.5 MG TABLET PO SCH ×2 (09:23→21:32)
[2017-06-10] MEDS: FUROSEMIDE 20 MG/2 ML VIAL IV SCH ×2 (09:25→15:19)
[2017-06-10] MEDS: FLUTICASONE/SALMETEROL 250-50 DISKUS 14 DOSE INH SCH ×2 (09:28→21:32)
[2017-06-10] MEDS: LEVOFLOXACIN INJ 500 MG in PREMIX 1 EACH IV SCH (21:32)
[2017-06-11] MEDS: ALBUTEROL/IPRATROPIUM 3 ML NEB RESP TX SCH ×6 (03:18→23:36)
[2017-06-11] MEDS ORDERED: FUROSEMIDE 40 MG/4 ML VIAL IV ONE (09:00)
[2017-06-11] MEDS: ACETAMINOPHEN 325 MG TABLET PO PRN ×2 (09:17→15:11)
[2017-06-11] MEDS: PANTOPRAZOLE 40 MG TABLET PO SCH (09:18)
[2017-06-11] MEDS: FUROSEMIDE 20 MG/2 ML VIAL IV SCH ×2 (09:18→15:10)
[2017-06-11] MEDS: metOLazone 5 MG TABLET PO SCH (09:18)
[2017-06-11] MEDS: CARVEDILOL 12.5 MG TABLET PO SCH ×2 (09:18→16:46)
[2017-06-11] MEDS: POTASSIUM CHLORIDE 10 MEQ TABLET PO SCH (09:18)
[2017-06-11] MEDS: FLUTICASONE/SALMETEROL 250-50 DISKUS 14 DOSE INH SCH ×2 (09:21→21:52)
[2017-06-11] MEDS: methylPREDNISolone SOD SUC 40 MG/1 ML VIAL IV SCH ×2 (09:21→16:38)
[2017-06-12] MEDS: ALBUTEROL/IPRATROPIUM 3 ML NEB RESP TX SCH ×5 (03:45→20:52)
[2017-06-12 04:11] LABS: Basophils # 0.1 10*3/uL (0.0-0.2); Basophils % 0.3 % (0.0-0.8); Hematocrit 44.7 VOL% (35.7-47.0); Hemoglobin 14.5 GM/DL (12.0-16.0); Immature Granulocytes Absolute 1.31 #; Lymphocytes # 0.4 10*3/uL (1.4-4.0); Lymphocytes % 1.9 % (21.3-54.2); Mean Corpuscular HGB Conc 32.4 GM/DL (32-36); Mean Corpuscular Hemoglobin 27 PG (27-34); Mean Corpuscular Volume 83.4 FL (87-102); Mean Platelet Volume 11.2 FL (9.6-12.0); Monocytes # 0.4 10*3/uL (0.11-0.8); Neutrophils # 16.7 10*3/uL (1.4-7.4); Neutrophils % 88.8 % (38.7-73.9); Platelet Count 320 T/CUMM (130-400); Red Blood Count 5.36 MC/CUMM (3.8-5.5); Red Cell Distribution Width 15.6 % (9.3-17.3); White Blood Count 18.8 T/CUMM (4-12)
[2017-06-12 04:48] LABS: Calcium 8.8 MG/DL (8.5-10.1); Osmolality,Calculated 286.4 MOS/KG (273-304); Potassium 4.4 MMOL/L (3.5-5.1)
[2017-06-12 07:30] LABS: Hypochromasia 1+; Lymphocytes 8 % (20-55); Microcytosis 1+; Segmented Neutrophils 89 % (50-85); Total Cells Counted 100
[2017-06-12 07:31] LABS: Ovalocytes Slight; Platelet Estimate Normal
[2017-06-12] MEDS: CARVEDILOL 12.5 MG TABLET PO SCH ×2 (09:44→18:33)
[2017-06-12] MEDS: POTASSIUM CHLORIDE 10 MEQ TABLET PO SCH (09:44)
[2017-06-12] MEDS: PANTOPRAZOLE 40 MG TABLET PO SCH (09:45)
[2017-06-12] MEDS: FLUTICASONE/SALMETEROL 250-50 DISKUS 14 DOSE INH SCH ×2 (09:45→20:47)
[2017-06-12] MEDS: metOLazone 5 MG TABLET PO SCH (09:45)
[2017-06-12] MEDS: FUROSEMIDE 20 MG/2 ML VIAL IV SCH (09:46)
[2017-06-13] MEDS: ALBUTEROL/IPRATROPIUM 3 ML NEB RESP TX SCH ×7 (00:43→22:56)
[2017-06-13 05:46] LABS: Basophils # 0.1 10*3/uL (0.0-0.2); Basophils % 0.4 % (0.0-0.8); Eosinophils # 0.2 10*3/uL (0.0-0.87); Eosinophils % 1.2 % (0.00-10.9); Hematocrit 43.4 VOL% (35.7-47.0); Hemoglobin 13.7 GM/DL (12.0-16.0); Immature Granulocytes % 6.1 %; Immature Granulocytes Absolute 1.05 #; Lymphocytes # 1.4 10*3/uL (1.4-4.0); Lymphocytes % 7.8 % (21.3-54.2); Mean Corpuscular HGB Conc 31.6 GM/DL (32-36); Mean Corpuscular Hemoglobin 27 PG (27-34); Mean Corpuscular Volume 85.1 FL (87-102); Monocytes % 5.5 % (1.7-12.7); Neutrophils # 13.7 10*3/uL (1.4-7.4); Platelet Count 303 T/CUMM (130-400); Red Cell Distribution Width 15.9 % (9.3-17.3); White Blood Count 17.3 T/CUMM (4-12)
[2017-06-13 06:08] LABS: Eosinophils 1 % (0-10); Hypochromasia 1+; Lymphocytes 3 % (20-55); Microcytosis 1+; Ovalocytes Slight; Platelet Estimate Normal; Segmented Neutrophils 88 % (50-85); Total Cells Counted 100
[2017-06-13 06:13] LABS: Calcium 8.7 MG/DL (8.5-10.1); Osmolality,Calculated 277.8 MOS/KG (273-304); Potassium 3.8 MMOL/L (3.5-5.1)
[2017-06-13] MEDS ORDERED: NITROGLYCERIN SL 0.4 MG TABLET SL PRN (08:24)
[2017-06-13] MEDS ORDERED: ASPIRIN CHEW 81 MG TABLET PO ONE (08:24)
[2017-06-13] MEDS ORDERED: ASPIRIN 325 MG TABLET ONE (08:29)
[2017-06-13] MEDS ORDERED: NITROGLYCERIN SL 0.4 MG TABLET SL ONE (08:29)
[2017-06-13] MEDS ORDERED: SIMETHICONE CHEW 125 MG TABLET PO SCH (08:30)
[2017-06-13 08:53] LABS: Basophils # 0.1 10*3/uL (0.0-0.2); Basophils % 0.4 % (0.0-0.8); Eosinophils # 0.2 10*3/uL (0.0-0.87); Hematocrit 44.3 VOL% (35.7-47.0); Immature Granulocytes % 5.3 %; Immature Granulocytes Absolute 0.95 #; Lymphocytes # 1.5 10*3/uL (1.4-4.0); Lymphocytes % 8.1 % (21.3-54.2); Mean Corpuscular HGB Conc 31.6 GM/DL (32-36); Mean Corpuscular Hemoglobin 27 PG (27-34); Mean Corpuscular Volume 85.7 FL (87-102); Mean Platelet Volume 11.5 FL (9.6-12.0); Monocytes % 5.8 % (1.7-12.7); NRBC # 0.02 10*3/uL; Neutrophils # 14.2 10*3/uL (1.4-7.4); Neutrophils % 79.4 % (38.7-73.9); Platelet Count 293 T/CUMM (130-400); Red Blood Count 5.17 MC/CUMM (3.8-5.5); Red Cell Distribution Width 15.9 % (9.3-17.3); White Blood Count 17.9 T/CUMM (4-12)
[2017-06-13 09:15] LABS: Band Neutrophils 1 % (0-10); Eosinophils 2 % (0-10); Hypochromasia 1+; Lymphocytes 11 % (20-55); Microcytosis 1+; Platelet Estimate Normal; Segmented Neutrophils 83 % (50-85); Total Cells Counted 100
[2017-06-13 09:26] LABS: Alanine Aminotransferase 18 U/L (13-56); Albumin 3.8 G/DL (3.4-5.0); Alkaline Phosphatase 96 U/L (45-117); Aspartate Amino Transferase 18 U/L (0-37); Blood Urea Nitrogen 54 MG/DL (7-18); Calcium 8.6 MG/DL (8.5-10.1); Glucose 195 MG/DL (74-106); Magnesium 2.5 MG/DL (1.8-2.4); Osmolality,Calculated 276.1 MOS/KG (273-304); Potassium 4.3 MMOL/L (3.5-5.1); Sodium 128 MMOL/L (136-145); Troponin I Only < 0.015 NG/ML (0.00-0.045)
[2017-06-13] MEDS: CARVEDILOL 12.5 MG TABLET PO SCH ×2 (09:41→16:45)
[2017-06-13] MEDS: PANTOPRAZOLE 40 MG TABLET PO SCH (09:41)
[2017-06-13] MEDS: FLUTICASONE/SALMETEROL 250-50 DISKUS 14 DOSE INH SCH ×2 (09:41→20:36)
[2017-06-13] MEDS: MAGNESIUM HYDROXIDE SUSP 30 ML UDCUP PO PRN (09:42)
[2017-06-14] MEDS: ALBUTEROL/IPRATROPIUM 3 ML NEB RESP TX SCH ×2 (03:11→07:09)
[2017-06-14] MEDS: ACETAMINOPHEN 325 MG TABLET PO PRN (06:38)
[2017-06-14 08:01] VITALS: BP 105/60
[2017-06-14] MEDS: PANTOPRAZOLE 40 MG TABLET PO SCH (08:23)
[2017-06-14] MEDS: CARVEDILOL 12.5 MG TABLET PO SCH (08:23)
[2017-06-14] MEDS: FLUTICASONE/SALMETEROL 250-50 DISKUS 14 DOSE INH SCH (08:30)
[2017-06-14] MEDS ORDERED: FUROSEMIDE 40 MG TABLET PO SCH (09:00)
== END 2017-06-14 09:55 | disposition home or self-care (01) | DRG 190 ==
LOC: N.2E 18:32
PROVIDERS: ADMIT Family Medicine; ATTEND Family Medicine

== ENCOUNTER 2018-03-02 09:47 | Observation (INO) ==
[2018-03-02] MEDS ORDERED: FUROSEMIDE 100 MG/10 ML VIAL IV STA (10:25)
[2018-03-02 10:59] LABS: Basophils # 0.1 10*3/uL (0.0-0.2); Basophils % 0.7 % (0.0-0.8); Eosinophils # 0.3 10*3/uL (0.0-0.87); Eosinophils % 2.2 % (0.00-10.9); Hematocrit 45.3 VOL% (35.7-47.0); Immature Granulocytes % 6.5 %; Immature Granulocytes Absolute 0.91 #; Lymphocytes % 7.2 % (21.3-54.2); Mean Corpuscular HGB Conc 29.8 GM/DL (32-36); Mean Corpuscular Hemoglobin 25 PG (27-34); Mean Platelet Volume 9.9 FL (9.6-12.0); Monocytes # 0.5 10*3/uL (0.11-0.8); Monocytes % 3.5 % (1.7-12.7); Neutrophils # 11.1 10*3/uL (1.4-7.4); Neutrophils % 79.9 % (38.7-73.9); Platelet Count 468 T/CUMM (130-400); Red Blood Count 5.39 MC/CUMM (3.8-5.5); Red Cell Distribution Width 17.9 % (9.3-17.3); White Blood Count 13.9 T/CUMM (4-12)
[2018-03-02 11:00] LABS: Hemoglobin 13.5 GM/DL (12.0-16.0)
[2018-03-02 11:09] LABS: INR 1.1; PT Patient Result 11.9 SECS; Partial Thromboplastin Time 29.4 SECS (0-40)
[2018-03-02 11:10] LABS: ABG Base Excess 7.8 MMOL/L (-2.5-2.5); ABG HCO3 34.3 MMOL/L (20-26); ABG PCO2 55.2 MM HG (35-48); ABG PH 7.411 (7.35-7.45); ABG PO2 69.3 MM HG (80-95); Allen Test Positive
[2018-03-02 11:28] LABS: Band Neutrophils 3 % (0-10); Lymphocytes 5 % (20-55); Segmented Neutrophils 88 % (50-85); Total Cells Counted 100
[2018-03-02 11:38] LABS: Polychromasia Slight
[2018-03-02 11:39] LABS: Microcytosis 1+; Ovalocytes Slight
[2018-03-02 11:40] LABS: Hypochromasia Slight; Platelet Estimate Increased
[2018-03-02 11:43] LABS: Albumin 3.5 G/DL (3.4-5.0); Bilirubin,Total 1.2 MG/DL (0.2-1.0); Calcium 8.2 MG/DL (8.5-10.1); Osmolality,Calculated 282.4 MOS/KG (273-304); Potassium 3.4 MMOL/L (3.5-5.1)
[2018-03-02] MEDS ORDERED: ONDANSETRON 4 MG/2 ML VIAL IV PRN (15:00)
[2018-03-02] MEDS ORDERED: ACETAMINOPHEN 325 MG TABLET PO PRN (15:00)
[2018-03-02] MEDS ORDERED: ALBUTEROL/IPRATROPIUM 3 ML NEB RESP TX PRN (17:47)
[2018-03-02] MEDS ORDERED: LEVOFLOXACIN INJ 500 MG in PREMIX 1 EACH IV ONE (18:00)
[2018-03-02] MEDS: FUROSEMIDE 40 MG/4 ML VIAL IV SCH (18:45)
[2018-03-02] MEDS: methylPREDNISolone SOD SUC 40 MG/1 ML VIAL IV SCH (18:45)
[2018-03-02] MEDS: ALBUTEROL/IPRATROPIUM 3 ML NEB RESP TX SCH (19:39)
[2018-03-02] MEDS: DOCUSATE SODIUM 100 MG CAPSULE PO SCH (21:08)
[2018-03-02] MEDS: FLUTICASONE/SALMETEROL 250-50 DISKUS 14 DOSE INH SCH (21:08)
[2018-03-03] MEDS: ALBUTEROL/IPRATROPIUM 3 ML NEB RESP TX SCH ×4 (00:34→19:17)
[2018-03-03] MEDS: methylPREDNISolone SOD SUC 40 MG/1 ML VIAL IV SCH ×3 (02:36→17:23)
[2018-03-03 04:37] LABS: Basophils # 0.1 10*3/uL (0.0-0.2); Basophils % 0.6 % (0.0-0.8); Eosinophils % 0.2 % (0.00-10.9); Hemoglobin 13.9 GM/DL (12.0-16.0); Lymphocytes # 0.5 10*3/uL (1.4-4.0); Lymphocytes % 3.2 % (21.3-54.2); Mean Corpuscular HGB Conc 30.2 GM/DL (32-36); Mean Corpuscular Hemoglobin 25 PG (27-34); Mean Corpuscular Volume 82.7 FL (87-102); Mean Platelet Volume 9.4 FL (9.6-12.0); Monocytes # 0.2 10*3/uL (0.11-0.8); Monocytes % 1.1 % (1.7-12.7); Neutrophils % 86.9 % (38.7-73.9); Platelet Count 414 T/CUMM (130-400); Red Blood Count 5.56 MC/CUMM (3.8-5.5); Red Cell Distribution Width 17.2 % (9.3-17.3)
[2018-03-03 04:51] LABS: Platelet Estimate Normal; Polychromasia Few; Segmented Neutrophils 99 % (50-85); Total Cells Counted 100
[2018-03-03 05:09] LABS: Albumin 3.5 G/DL (3.4-5.0); Bilirubin,Total 1.4 MG/DL (0.2-1.0); Calcium 8.1 MG/DL (8.5-10.1); Potassium 3.3 MMOL/L (3.5-5.1)
[2018-03-03] MEDS: FLUTICASONE/SALMETEROL 250-50 DISKUS 14 DOSE INH SCH ×2 (10:58→20:56)
[2018-03-03] MEDS: LOSARTAN 50 MG TABLET PO SCH (10:58)
[2018-03-03] MEDS: DOCUSATE SODIUM 100 MG CAPSULE PO SCH ×2 (10:58→20:56)
[2018-03-03] MEDS: CARVEDILOL 12.5 MG TABLET PO SCH ×2 (10:58→16:47)
[2018-03-03] MEDS: PANTOPRAZOLE 40 MG TABLET PO SCH (10:59)
[2018-03-03] MEDS: BUDESONIDE/FORMOTEROL 80-4.5 INHALER 6.9 GM INH SCH (11:01)
[2018-03-03] MEDS: FUROSEMIDE 40 MG/4 ML VIAL IV SCH ×2 (11:04→15:35)
[2018-03-03] MEDS ORDERED: LEVOFLOXACIN INJ 250 MG in PREMIX 1 EACH IV SCH (18:00)
[2018-03-04] MEDS: ALBUTEROL/IPRATROPIUM 3 ML NEB RESP TX SCH ×3 (00:20→07:36)
[2018-03-04] MEDS: methylPREDNISolone SOD SUC 40 MG/1 ML VIAL IV SCH ×2 (03:06→09:30)
[2018-03-04] MEDS: PANTOPRAZOLE 40 MG TABLET PO SCH (08:27)
[2018-03-04] MEDS: CARVEDILOL 12.5 MG TABLET PO SCH (08:27)
[2018-03-04] MEDS: DOCUSATE SODIUM 100 MG CAPSULE PO SCH (08:27)
[2018-03-04] MEDS: BUDESONIDE/FORMOTEROL 80-4.5 INHALER 6.9 GM INH SCH (08:27)
[2018-03-04] MEDS: LOSARTAN 50 MG TABLET PO SCH (08:27)
[2018-03-04] MEDS: FUROSEMIDE 40 MG/4 ML VIAL IV SCH (08:28)
[2018-03-04] MEDS: FLUTICASONE/SALMETEROL 250-50 DISKUS 14 DOSE INH SCH (08:34)
[2018-03-04 11:42] VITALS: BP 108/61
[2018-03-04] MEDS ORDERED: POTASSIUM CHLORIDE 20 MEQ TABLET PO ONE (13:03)
== END 2018-03-04 16:15 | disposition home or self-care (01) ==
LOC: N.ED 09:47 → N.EDINP 09:47 → N.2W 14:59 → N.TELEN 16:01
PROVIDERS: ADMIT Family Medicine; ATTEND Family Medicine

== ENCOUNTER 2019-01-03 09:46 | Inpatient (IN) ==
[2019-01-03 13:00] LABS: Calcium 8.6 MG/DL (8.5-10.1); Osmolality,Calculated 278.5 MOS/KG (273-304)
[2019-01-03 13:08] LABS: Basophils # 0.1 10*3/uL (0.0-0.2); Basophils % 0.8 % (0.0-0.8); Eosinophils # 0.4 10*3/uL (0.0-0.87); Eosinophils % 2.3 % (0.00-10.9); Immature Granulocytes % 6.1 %; Immature Granulocytes Absolute 1.01 #; Lymphocytes # 0.9 10*3/uL (1.4-4.0); Lymphocytes % 5.4 % (21.3-54.2); Monocytes % 4.9 % (1.7-12.7); NRBC # 0.04 10*3/uL; Neutrophils % 80.5 % (38.7-73.9); Platelet Count 393 T/CUMM (130-400); Red Blood Count 5.76 MC/CUMM (3.8-5.5); Red Cell Distribution Width 18.6 % (9.3-17.3); White Blood Count 16.6 T/CUMM (4-12)
[2019-01-03 13:16] LABS: Hematocrit 48.4 VOL% (35.7-47.0); Hemoglobin 14.5 GM/DL (12.0-16.0)
[2019-01-03 13:42] LABS: Anisocytosis 1+; Band Neutrophils 1 % (0-10); Eosinophils 3 % (0-10); Lymphocytes 4 % (20-55); Segmented Neutrophils 88 % (50-85); Total Cells Counted 100
[2019-01-03] MEDS ORDERED: SODIUM CHLORIDE 0.9% 1,000 ML IV STA (13:42)
[2019-01-03 13:44] LABS: Platelet Estimate Normal
[2019-01-03 13:45] LABS: Macrocytosis 1+; Microcytosis Slight; Polychromasia 1+; Reactive Lymphocytes 1+
[2019-01-03] MEDS ORDERED: ONDANSETRON 4 MG/2 ML VIAL IV PRN (18:06)
[2019-01-03] MEDS: SODIUM CHLORIDE 0.9% 1,000 ML IV SCH ×2 (18:26→21:49)
[2019-01-03] MEDS ORDERED: cefTRIAXone 1,000 MG in SYRINGE 1 EACH IV ONE (18:43)
[2019-01-03] MEDS ORDERED: ALBUTEROL/IPRATROPIUM 3 ML NEB RESP TX PRN (19:51)
[2019-01-03] MEDS ORDERED: MORPHINE 4 MG/1 ML VIAL IV PRN (20:41)
[2019-01-03] MEDS ORDERED: PROPOFOL 200 MG/20 ML VIAL IV ONE (20:52)
[2019-01-03] MEDS ORDERED: SEVOFLURANE 1 UNIT/15 MINUTE INH ONE (20:52)
[2019-01-03] MEDS ORDERED: PHENYLEPHRINE 1 MG/10 ML SYRINGE IV ONE (20:53)
[2019-01-03] MEDS ORDERED: DEXAMETHASONE 4 MG/1 ML VIAL ONE (20:53)
[2019-01-03] MEDS ORDERED: ONDANSETRON 4 MG/2 ML VIAL ONE (20:53)
[2019-01-03] MEDS ORDERED: fentaNYL 100 MCG/2 ML VIAL ONE (20:53)
[2019-01-03] MEDS: DOCUSATE SODIUM 100 MG CAPSULE PO SCH (22:28)
[2019-01-03 23:15] LABS: Apearance,Urine CLOUDY (Clear); Bilirubin,Urine Negative (Negative); Blood, Urine Large mg/dL (Negative); Glucose,Urine (UA) Negative (Negative); Hyaline Casts,Urine 12 /LPF (0-3); Ketones,Urine Negative (Negative); Mucus,Urine Occasional /LPF (Occasional); Nitrite,Urine Negative (Negative); Protein,Urine 100 MG/DL; RBC,Urine 290 /HPF (0-4); Squamous Epithelial Cell,Urine Occasional /HPF (0-10); Urine Color Yellow (Yellow); Urine Specific Gravity 1.012 (1.001-1.035); Urine Urobilinogen < 2.0 EU/DL (0.2-1.0); WBC,Urine 91 /HPF (0-6)
[2019-01-04] MEDS: SODIUM CHLORIDE 0.9% 1,000 ML IV SCH (04:25)
[2019-01-04 05:54] LABS: Risk Ratio 3.27; Thyroid Stimulating Hormone 0.792 uIU/ml (0.358-3.74)
[2019-01-04 06:43] LABS: Basophils # 0.1 10*3/uL (0.0-0.2); Basophils % 0.5 % (0.0-0.8); Eosinophils # 0.1 10*3/uL (0.0-0.87); Eosinophils % 0.4 % (0.00-10.9); Hematocrit 49.5 VOL% (35.7-47.0); Immature Granulocytes % 8.3 %; Immature Granulocytes Absolute 1.54 #; Lymphocytes # 0.4 10*3/uL (1.4-4.0); Lymphocytes % 2.3 % (21.3-54.2); Mean Corpuscular HGB Conc 29.1 GM/DL (32-36); Mean Corpuscular Volume 86.7 FL (87-102); Mean Platelet Volume 9.7 FL (9.6-12.0); Monocytes % 1.3 % (1.7-12.7); NRBC # 0.03 10*3/uL; Neutrophils % 87.2 % (38.7-73.9); Platelet Count 377 T/CUMM (130-400); Red Blood Count 5.71 MC/CUMM (3.8-5.5); Red Cell Distribution Width 18.6 % (9.3-17.3); White Blood Count 18.6 T/CUMM (4-12)
[2019-01-04 06:44] LABS: Hemoglobin 14.4 GM/DL (12.0-16.0)
[2019-01-04 06:47] LABS: Eosinophils 2 % (0-10); Lymphocytes 4 % (20-55); Platelet Estimate Normal; Polychromasia Few; Segmented Neutrophils 92 % (50-85); Smudge Cells Few; Total Cells Counted 100
[2019-01-04 07:58] LABS: Calcium 7.6 MG/DL (8.5-10.1); Osmolality,Calculated 286.1 MOS/KG (273-304)
[2019-01-04] MEDS: CARVEDILOL 12.5 MG TABLET PO SCH ×2 (09:34→17:22)
[2019-01-04] MEDS: DOCUSATE SODIUM 100 MG CAPSULE PO SCH ×2 (09:34→20:53)
[2019-01-04] MEDS: LOSARTAN 50 MG TABLET PO SCH (09:34)
[2019-01-04] MEDS: POTASSIUM CHLORIDE 10 MEQ TABLET PO SCH (09:35)
[2019-01-04] MEDS: PANTOPRAZOLE 40 MG TABLET PO SCH (09:35)
[2019-01-04] MEDS: cefTRIAXone 1,000 MG in SYRINGE 1 EACH IV SCH (09:35)
[2019-01-05 05:41] LABS: Basophils # 0.1 10*3/uL (0.0-0.2); Basophils % 0.7 % (0.0-0.8); Eosinophils # 0.2 10*3/uL (0.0-0.87); Eosinophils % 0.9 % (0.00-10.9); Hematocrit 47.2 VOL% (35.7-47.0); Hemoglobin 14.2 GM/DL (12.0-16.0); Immature Granulocytes % 6.1 %; Immature Granulocytes Absolute 1.21 #; Lymphocytes # 0.9 10*3/uL (1.4-4.0); Lymphocytes % 4.7 % (21.3-54.2); Mean Corpuscular HGB Conc 30.1 GM/DL (32-36); Mean Corpuscular Volume 84.6 FL (87-102); Mean Platelet Volume 9.7 FL (9.6-12.0); Monocytes % 4.3 % (1.7-12.7); NRBC # 0.04 10*3/uL; Neutrophils % 83.3 % (38.7-73.9); Platelet Count 413 T/CUMM (130-400); Red Blood Count 5.58 MC/CUMM (3.8-5.5); Red Cell Distribution Width 18.5 % (9.3-17.3); White Blood Count 19.9 T/CUMM (4-12)
[2019-01-05 05:48] LABS: Albumin 2.9 G/DL (3.4-5.0); Bilirubin,Total 0.6 MG/DL (0.2-1.0); Osmolality,Calculated 283.5 MOS/KG (273-304); Total Protein 6.3 G/DL (6.4-8.3)
[2019-01-05] MEDS: SODIUM CHLORIDE 0.9% 1,000 ML IV SCH (06:15)
[2019-01-05 06:40] LABS: Band Neutrophils 2 % (0-10); Lymphocytes 3 % (20-55); Metamyelocytes 2 %; Ovalocytes Few; Platelet Estimate Normal; Segmented Neutrophils 89 % (50-85); Total Cells Counted 100
[2019-01-05] MEDS: DOCUSATE SODIUM 100 MG CAPSULE PO SCH ×2 (09:51→21:04)
[2019-01-05] MEDS: CARVEDILOL 12.5 MG TABLET PO SCH ×2 (09:51→17:39)
[2019-01-05] MEDS: POTASSIUM CHLORIDE 10 MEQ TABLET PO SCH (09:52)
[2019-01-05] MEDS: LOSARTAN 50 MG TABLET PO SCH (09:52)
[2019-01-05] MEDS: PANTOPRAZOLE 40 MG TABLET PO SCH (09:52)
[2019-01-05] MEDS: cefTRIAXone 1,000 MG in SYRINGE 1 EACH IV SCH (09:53)
[2019-01-05] MEDS ORDERED: fentaNYL 100 MCG/2 ML VIAL IV ONE (11:51)
[2019-01-05] MEDS ORDERED: MIDAZOLAM 2 MG/2 ML VIAL IV ONE (11:51)
[2019-01-05 12:42] LABS: INR 1.1; PT Patient Result 12.2 SECS
[2019-01-05] MEDS ORDERED: MIDAZOLAM 2 MG/2 ML VIAL ONE (12:47)
[2019-01-05] MEDS ORDERED: fentaNYL 100 MCG/2 ML VIAL ONE (12:47)
[2019-01-06] MEDS: SODIUM CHLORIDE 0.9% 1,000 ML IV SCH (05:32)
[2019-01-06 05:42] LABS: Basophils # 0.1 10*3/uL (0.0-0.2); Basophils % 0.6 % (0.0-0.8); Eosinophils # 0.3 10*3/uL (0.0-0.87); Eosinophils % 1.8 % (0.00-10.9); Hematocrit 41.5 VOL% (35.7-47.0); Hemoglobin 12.1 GM/DL (12.0-16.0); Immature Granulocytes % 6.2 %; Immature Granulocytes Absolute 0.96 #; Lymphocytes # 0.8 10*3/uL (1.4-4.0); Lymphocytes % 5.3 % (21.3-54.2); Mean Corpuscular HGB Conc 29.2 GM/DL (32-36); Mean Corpuscular Volume 86.6 FL (87-102); Mean Platelet Volume 9.7 FL (9.6-12.0); Monocytes % 5.6 % (1.7-12.7); NRBC # 0.05 10*3/uL; Neutrophils % 80.5 % (38.7-73.9); Platelet Count 307 T/CUMM (130-400); Red Blood Count 4.79 MC/CUMM (3.8-5.5); Red Cell Distribution Width 18.3 % (9.3-17.3); White Blood Count 15.4 T/CUMM (4-12)
[2019-01-06 05:46] LABS: Alanine Aminotransferase < 9 U/L (13-56); Albumin 2.3 G/DL (3.4-5.0); Alkaline Phosphatase 73 U/L (45-117); Aspartate Amino Transferase 9 U/L (0-37); Blood Urea Nitrogen 26 MG/DL (7-18); Calcium 6.6 MG/DL (8.5-10.1); Glucose 67 MG/DL (74-106); Osmolality,Calculated 290.7 MOS/KG (273-304); Total Protein 4.8 G/DL (6.4-8.3)
[2019-01-06 05:56] LABS: Lymphocytes 4 % (20-55); Nucleated Red Blood Cells 1 (0-5); Platelet Estimate Normal; Polychromasia Few; Segmented Neutrophils 94 % (50-85); Total Cells Counted 100
[2019-01-06] MEDS: CARVEDILOL 12.5 MG TABLET PO SCH ×2 (07:58→17:07)
[2019-01-06] MEDS: POTASSIUM CHLORIDE 10 MEQ TABLET PO SCH (09:12)
[2019-01-06] MEDS: DOCUSATE SODIUM 100 MG CAPSULE PO SCH ×2 (09:12→21:03)
[2019-01-06] MEDS: LOSARTAN 50 MG TABLET PO SCH (09:12)
[2019-01-06] MEDS: PANTOPRAZOLE 40 MG TABLET PO SCH (09:12)
[2019-01-06] MEDS: cefTRIAXone 1,000 MG in SYRINGE 1 EACH IV SCH (09:14)
[2019-01-06] MEDS ORDERED: POLYETHYLENE GLYCOL POWDER 17 GM PACK PO PRN (09:59)
[2019-01-06] MEDS ORDERED: MAGNESIUM HYDROXIDE SUSP 30 ML UDCUP PO PRN ×2 (13:18→21:00)
[2019-01-06] MEDS ORDERED: SODIUM PHOSPHATE ENEMA 133 ML BOTTLE RECTAL ONE (13:20)
[2019-01-07] MEDS: SODIUM CHLORIDE 0.9% 1,000 ML IV SCH (01:53)
[2019-01-07 06:19] LABS: Basophils # 0.1 10*3/uL (0.0-0.2); Basophils % 0.7 % (0.0-0.8); Eosinophils # 0.3 10*3/uL (0.0-0.87); Eosinophils % 1.7 % (0.00-10.9); Hematocrit 46.4 VOL% (35.7-47.0); Hemoglobin 13.3 GM/DL (12.0-16.0); Immature Granulocytes % 5.5 %; Immature Granulocytes Absolute 0.93 #; Mean Corpuscular HGB Conc 28.7 GM/DL (32-36); Mean Corpuscular Volume 85.8 FL (87-102); Mean Platelet Volume 9.5 FL (9.6-12.0); Monocytes % 4.1 % (1.7-12.7); NRBC # 0.03 10*3/uL; Platelet Count 341 T/CUMM (130-400); Red Blood Count 5.41 MC/CUMM (3.8-5.5); Red Cell Distribution Width 18.2 % (9.3-17.3)
[2019-01-07 06:22] LABS: Calcium 8.3 MG/DL (8.5-10.1)
[2019-01-07 06:43] LABS: Anisocytosis 1+; Lymphocytes 6 % (20-55); Segmented Neutrophils 94 % (50-85); Total Cells Counted 100
[2019-01-07 06:44] LABS: Ovalocytes 2+; Platelet Estimate Adequate
[2019-01-07] MEDS: PANTOPRAZOLE 40 MG TABLET PO SCH (08:34)
[2019-01-07] MEDS: LOSARTAN 50 MG TABLET PO SCH (08:34)
[2019-01-07] MEDS: DOCUSATE SODIUM 100 MG CAPSULE PO SCH ×3 (08:34→21:14)
[2019-01-07] MEDS: POTASSIUM CHLORIDE 10 MEQ TABLET PO SCH (08:34)
[2019-01-07] MEDS: cefTRIAXone 1,000 MG in SYRINGE 1 EACH IV SCH (08:34)
[2019-01-07] MEDS: CARVEDILOL 12.5 MG TABLET PO SCH ×2 (08:34→16:26)
[2019-01-07] MEDS: ACETAMINOPHEN 325 MG TABLET PO PRN (22:18)
[2019-01-07] MEDS ORDERED: SIMETHICONE CHEW 125 MG TABLET PO PRN (22:27)
[2019-01-07] MEDS ORDERED: ALUMINUM/MAGNES/SIMETH MAX STR 30 ML UDCUP PO PRN (22:32)
[2019-01-08 06:42] LABS: Basophils # 0.1 10*3/uL (0.0-0.2); Basophils % 0.8 % (0.0-0.8); Eosinophils # 0.4 10*3/uL (0.0-0.87); Eosinophils % 2.5 % (0.00-10.9); Immature Granulocytes % 6.8 %; Immature Granulocytes Absolute 1.07 #; Lymphocytes # 0.8 10*3/uL (1.4-4.0); Lymphocytes % 4.9 % (21.3-54.2); Mean Corpuscular HGB Conc 28.4 GM/DL (32-36); Mean Corpuscular Volume 86.2 FL (87-102); Mean Platelet Volume 9.9 FL (9.6-12.0); Monocytes % 4.6 % (1.7-12.7); NRBC # 0.02 10*3/uL; Neutrophils % 80.4 % (38.7-73.9); Platelet Count 362 T/CUMM (130-400); Red Blood Count 5.23 MC/CUMM (3.8-5.5); Red Cell Distribution Width 17.7 % (9.3-17.3); White Blood Count 15.9 T/CUMM (4-12)
[2019-01-08 07:03] LABS: Calcium 8.5 MG/DL (8.5-10.1); Osmolality,Calculated 288.8 MOS/KG (273-304)
[2019-01-08 07:06] LABS: Hemoglobin 12.9 GM/DL (12.0-16.0)
[2019-01-08 07:18] LABS: Eosinophils 2 % (0-10); Hypochromasia 1+; Lymphocytes 4 % (20-55); Microcytosis 1+; Ovalocytes Few; Platelet Estimate Normal; Polychromasia Slight; Segmented Neutrophils 92 % (50-85); Spherocytes Few; Total Cells Counted 100
[2019-01-08] MEDS: CARVEDILOL 12.5 MG TABLET PO SCH ×2 (09:04→16:45)
[2019-01-08] MEDS: DOCUSATE SODIUM 100 MG CAPSULE PO SCH ×2 (09:04→22:09)
[2019-01-08] MEDS: PANTOPRAZOLE 40 MG TABLET PO SCH (09:04)
[2019-01-08] MEDS: POTASSIUM CHLORIDE 10 MEQ TABLET PO SCH (09:04)
[2019-01-08] MEDS: cefTRIAXone 1,000 MG in SYRINGE 1 EACH IV SCH (09:06)
[2019-01-08] MEDS: LOSARTAN 50 MG TABLET PO SCH (09:18)
[2019-01-08] MEDS: hydrALAZINE 20 MG/1 ML VIAL IV PRN (12:40)
[2019-01-08] MEDS: ACETAMINOPHEN 325 MG TABLET PO PRN (15:09)
[2019-01-08] MEDS: SODIUM CHLORIDE 0.9% 1,000 ML IV SCH (15:10)
[2019-01-09 05:54] LABS: Basophils % 0.8 % (0.0-0.8); Hemoglobin 12.9 GM/DL (12.0-16.0); Immature Granulocytes Absolute 0.79 #; Lymphocytes # 0.7 10*3/uL (1.4-4.0); Neutrophils % 80.5 % (38.7-73.9); Red Cell Distribution Width 17.7 % (9.3-17.3)
[2019-01-09 06:07] LABS: Calcium 8.3 MG/DL (8.5-10.1); Osmolality,Calculated 285.8 MOS/KG (273-304)
[2019-01-09 06:14] LABS: Basophils # 0.1 10*3/uL (0.0-0.2); Eosinophils # 0.4 10*3/uL (0.0-0.87); Eosinophils % 2.5 % (0.00-10.9); Hematocrit 44.1 VOL% (35.7-47.0); Immature Granulocytes % 5.6 %; Lymphocytes % 5.2 % (21.3-54.2); Mean Corpuscular HGB Conc 29.3 GM/DL (32-36); Mean Corpuscular Volume 85.6 FL (87-102); Mean Platelet Volume 9.7 FL (9.6-12.0); Monocytes % 5.4 % (1.7-12.7); NRBC # 0.05 10*3/uL; Platelet Count 352 T/CUMM (130-400); Red Blood Count 5.15 MC/CUMM (3.8-5.5); White Blood Count 14.2 T/CUMM (4-12)
[2019-01-09 06:44] LABS: Band Neutrophils 1 % (0-10); Eosinophils 1 % (0-10); Lymphocytes 3 % (20-55); Segmented Neutrophils 87 % (50-85); Total Cells Counted 100
[2019-01-09 06:45] LABS: Hypochromasia 1+; Microcytosis 1+; Nucleated Red Blood Cells 3 (0-5); Platelet Estimate Adequate
[2019-01-09] MEDS: LOSARTAN 50 MG TABLET PO SCH (09:33)
[2019-01-09] MEDS: PANTOPRAZOLE 40 MG TABLET PO SCH (09:33)
[2019-01-09] MEDS: CARVEDILOL 12.5 MG TABLET PO SCH ×2 (09:33→16:51)
[2019-01-09] MEDS: POTASSIUM CHLORIDE 10 MEQ TABLET PO SCH (09:33)
[2019-01-09] MEDS: cefTRIAXone 1,000 MG in SYRINGE 1 EACH IV SCH (09:34)
[2019-01-09] MEDS: DOCUSATE SODIUM 100 MG CAPSULE PO SCH ×2 (09:35→23:12)
[2019-01-09] MEDS: hydrALAZINE 20 MG/1 ML VIAL IV PRN (11:59)
[2019-01-09 14:01] LABS: Stone Source Right Ureter
[2019-01-09] MEDS: SODIUM CHLORIDE 0.9% 1,000 ML IV SCH (16:59)
[2019-01-10] MEDS: SODIUM CHLORIDE 0.9% 1,000 ML IV SCH ×2 (03:44→12:20)
[2019-01-10 05:31] LABS: Basophils # 0.1 10*3/uL (0.0-0.2); Basophils % 0.7 % (0.0-0.8); Eosinophils # 0.4 10*3/uL (0.0-0.87); Eosinophils % 2.3 % (0.00-10.9); Hematocrit 45.6 VOL% (35.7-47.0); Hemoglobin 13.5 GM/DL (12.0-16.0); Immature Granulocytes % 6.7 %; Immature Granulocytes Absolute 1.04 #; Lymphocytes # 0.6 10*3/uL (1.4-4.0); Lymphocytes % 3.6 % (21.3-54.2); Mean Corpuscular HGB Conc 29.6 GM/DL (32-36); Mean Corpuscular Volume 85.1 FL (87-102); Mean Platelet Volume 10.1 FL (9.6-12.0); Monocytes % 6.4 % (1.7-12.7); NRBC # 0.04 10*3/uL; Neutrophils % 80.3 % (38.7-73.9); Platelet Count 353 T/CUMM (130-400); Red Blood Count 5.36 MC/CUMM (3.8-5.5); Red Cell Distribution Width 17.8 % (9.3-17.3); White Blood Count 15.5 T/CUMM (4-12)
[2019-01-10 05:42] LABS: Calcium 8.4 MG/DL (8.5-10.1); Osmolality,Calculated 277.4 MOS/KG (273-304); Total Protein 6.6 G/DL (6.4-8.3)
[2019-01-10 06:00] LABS: Band Neutrophils 2 % (0-10); Eosinophils 3 % (0-10); Hypochromasia 1+; Lymphocytes 3 % (20-55); Microcytosis 1+; Ovalocytes Slight; Platelet Estimate Normal; Segmented Neutrophils 84 % (50-85); Total Cells Counted 100
[2019-01-10] MEDS: DOCUSATE SODIUM 100 MG CAPSULE PO SCH (08:39)
[2019-01-10] MEDS: POTASSIUM CHLORIDE 10 MEQ TABLET PO SCH (08:40)
[2019-01-10] MEDS: CARVEDILOL 12.5 MG TABLET PO SCH ×2 (08:40→18:14)
[2019-01-10] MEDS: PANTOPRAZOLE 40 MG TABLET PO SCH (08:40)
[2019-01-10] MEDS ORDERED: LEVOFLOXACIN 500 MG TABLET PO SCH (09:00)
[2019-01-10] MEDS ORDERED: amLODIPine 5 MG TABLET PO SCH (09:00)
[2019-01-10] MEDS ORDERED: LOSARTAN 50 MG TABLET PO SCH (09:00)
[2019-01-10 15:45] VITALS: BP 140/87
== END 2019-01-10 18:15 | disposition home or self-care (01) | DRG 660 ==
LOC: N.EDINP 09:46 → N.ED 09:46 → N.2E 16:37
PROVIDERS: ADMIT Family Medicine; ATTEND Family Medicine

== ENCOUNTER 2019-02-07 07:07 | Inpatient (IN) ==
[2019-01-30 11:50] LABS: Mean Corpuscular Volume 81.9 FL (87-102)
[2019-01-30 12:10] LABS: Albumin 3.7 G/DL (3.4-5.0); Bilirubin,Total 1.1 MG/DL (0.2-1.0); Calcium 8.7 MG/DL (8.5-10.1); Osmolality,Calculated 273.8 MOS/KG (273-304); Total Protein 7.5 G/DL (6.4-8.3)
[2019-01-30 12:11] LABS: Basophils # 0.1 10*3/uL (0.0-0.2); Basophils % 0.7 % (0.0-0.8); Eosinophils # 0.5 10*3/uL (0.0-0.87); Eosinophils % 2.8 % (0.00-10.9); Hematocrit 52.9 VOL% (35.7-47.0); Hemoglobin 15.5 GM/DL (12.0-16.0); Immature Granulocytes % 4.3 %; Immature Granulocytes Absolute 0.71 #; Lymphocytes # 1.2 10*3/uL (1.4-4.0); Lymphocytes % 7.3 % (21.3-54.2); Mean Corpuscular HGB Conc 29.3 GM/DL (32-36); Mean Platelet Volume 10.2 FL (9.6-12.0); Monocytes % 3.1 % (1.7-12.7); NRBC # 0.03 10*3/uL; Neutrophils % 81.8 % (38.7-73.9); Platelet Count 323 T/CUMM (130-400); Red Blood Count 6.46 MC/CUMM (3.8-5.5); Red Cell Distribution Width 18.5 % (9.3-17.3); White Blood Count 16.7 T/CUMM (4-12)
[2019-01-30 12:14] LABS: Eosinophils 5 % (0-10); Lymphocytes 3 % (20-55); Segmented Neutrophils 87 % (50-85); Total Cells Counted 100
[2019-01-30 12:15] LABS: Hypochromasia 1+; Platelet Estimate Adequate
[2019-02-07] MEDS ORDERED: HYDROmorphone 2 MG/1 ML VIAL IV PRN (08:27)
[2019-02-07] MEDS ORDERED: PROMETHAZINE 25 MG/1 ML VIAL IM PRN (08:27)
[2019-02-07] MEDS ORDERED: ACETAMINOPHEN 325 MG TABLET PO PRN (08:27)
[2019-02-07] MEDS ORDERED: ONDANSETRON 4 MG/2 ML VIAL IV PRN (08:27)
[2019-02-07] MEDS ORDERED: FUROSEMIDE 40 MG TABLET PO PRN (08:30)
[2019-02-07] MEDS ORDERED: ONDANSETRON 4 MG TABLET PO PRN (08:30)
[2019-02-07] MEDS: SODIUM CHLORIDE 0.9% 1,000 ML IV SCH ×2 (09:09→20:25)
[2019-02-07] MEDS ORDERED: LEVOFLOXACIN INJ 100 ML IV ONE (09:20)
[2019-02-07] MEDS: LEVOFLOXACIN INJ 500 MG in PREMIX 1 EACH IV SCH (09:32)
[2019-02-07] MEDS ORDERED: fentaNYL 100 MCG/2 ML VIAL IV ONE (09:43)
[2019-02-07] MEDS ORDERED: MIDAZOLAM 2 MG/2 ML VIAL IV ONE (09:43)
[2019-02-07] MEDS ORDERED: DIAZEPAM 5 MG TABLET PO ONE (09:43)
[2019-02-07] MEDS ORDERED: DIAZEPAM 5 MG TABLET ONE (10:46)
[2019-02-07] MEDS ORDERED: fentaNYL 100 MCG/2 ML VIAL ONE (11:31)
[2019-02-07] MEDS ORDERED: MIDAZOLAM 2 MG/2 ML VIAL ONE (11:31)
[2019-02-07] MEDS: LOSARTAN 50 MG TABLET PO SCH (13:21)
[2019-02-07] MEDS: CARVEDILOL 12.5 MG TABLET PO SCH (17:51)
[2019-02-07] MEDS ORDERED: ALBUTEROL/IPRATROPIUM 3 ML NEB RESP TX PRN (18:56)
[2019-02-07 19:18] LABS: Osmolality,Calculated 280.5 MOS/KG (273-304)
[2019-02-07 19:33] LABS: Basophils # 0.1 10*3/uL (0.0-0.2); Basophils % 0.6 % (0.0-0.8); Eosinophils # 0.4 10*3/uL (0.0-0.87); Eosinophils % 2.7 % (0.00-10.9); Hematocrit 47.8 VOL% (35.7-47.0); Immature Granulocytes Absolute 0.86 #; Lymphocytes # 0.7 10*3/uL (1.4-4.0); Lymphocytes % 4.7 % (21.3-54.2); Mean Corpuscular HGB Conc 29.3 GM/DL (32-36); Mean Corpuscular Volume 80.6 FL (87-102); Mean Platelet Volume 10.5 FL (9.6-12.0); Monocytes % 3.3 % (1.7-12.7); NRBC # 0.02 10*3/uL; Neutrophils % 82.7 % (38.7-73.9); Platelet Count 353 T/CUMM (130-400); Red Blood Count 5.93 MC/CUMM (3.8-5.5); Red Cell Distribution Width 18.4 % (9.3-17.3); White Blood Count 14.4 T/CUMM (4-12)
[2019-02-07 20:07] LABS: Eosinophils 5 % (0-10); Lymphocytes 3 % (20-55); Nucleated Red Blood Cells 1 (0-5); Segmented Neutrophils 89 % (50-85); Total Cells Counted 100
[2019-02-07 20:08] LABS: Platelet Estimate Normal
[2019-02-07 20:09] LABS: Anisocytosis 1+; Microcytosis 2+; Polychromasia Few
[2019-02-07 20:10] LABS: Burr Cells Few; Hypochromasia Slight; Ovalocytes 1+
[2019-02-08] MEDS: SODIUM CHLORIDE 0.9% 1,000 ML IV SCH ×2 (05:23→15:30)
[2019-02-08] MEDS ORDERED: cefTRIAXone 1,000 MG in SYRINGE 1 EACH IV ONE ×2 (06:00→07:00)
[2019-02-08 06:57] LABS: Albumin 3.1 G/DL (3.4-5.0); Bilirubin,Total 0.7 MG/DL (0.2-1.0); Calcium 8.2 MG/DL (8.5-10.1); Osmolality,Calculated 276.5 MOS/KG (273-304); Total Protein 6.3 G/DL (6.4-8.3)
[2019-02-08 07:00] LABS: Basophils # 0.1 10*3/uL (0.0-0.2); Basophils % 0.6 % (0.0-0.8); Eosinophils # 0.4 10*3/uL (0.0-0.87); Eosinophils % 2.5 % (0.00-10.9); Hematocrit 46.3 VOL% (35.7-47.0); Hemoglobin 13.5 GM/DL (12.0-16.0); Immature Granulocytes % 2.8 %; Immature Granulocytes Absolute 0.38 #; Lymphocytes # 0.9 10*3/uL (1.4-4.0); Lymphocytes % 6.6 % (21.3-54.2); Mean Corpuscular HGB Conc 29.2 GM/DL (32-36); Mean Corpuscular Volume 81.7 FL (87-102); Mean Platelet Volume 10.8 FL (9.6-12.0); Monocytes % 4.4 % (1.7-12.7); NRBC # 0.02 10*3/uL; Neutrophils % 83.1 % (38.7-73.9); Platelet Count 324 T/CUMM (130-400); Red Blood Count 5.67 MC/CUMM (3.8-5.5); Red Cell Distribution Width 18.3 % (9.3-17.3); White Blood Count 13.7 T/CUMM (4-12)
[2019-02-08] MEDS ORDERED: GENTAMICIN 80 MG/2 ML VIAL ONE (09:56)
[2019-02-08] MEDS ORDERED: ROPIVACAINE 0.5% 30 ML VIAL ONE (11:37)
[2019-02-08] MEDS ORDERED: HYDROmorphone 2 MG/1 ML VIAL ONE (12:17)
[2019-02-08] MEDS ORDERED: ONDANSETRON 4 MG/2 ML VIAL ONE (12:17)
[2019-02-08] MEDS: HYDROmorphone 2 MG/1 ML VIAL IV PRN ×2 (12:19→12:59)
[2019-02-08] MEDS ORDERED: MIDAZOLAM 2 MG/2 ML VIAL ONE (12:20)
[2019-02-08] MEDS ORDERED: SEVOFLURANE 1 UNIT/15 MINUTE INH ONE (12:20)
[2019-02-08] MEDS ORDERED: fentaNYL 100 MCG/2 ML VIAL ONE (12:20)
[2019-02-08] MEDS ORDERED: DEXAMETHASONE 4 MG/1 ML VIAL ONE (12:20)
[2019-02-08] MEDS ORDERED: LIDOCAINE 100 MG/5 ML SYRINGE ONE (12:20)
[2019-02-08] MEDS ORDERED: PROPOFOL 200 MG/20 ML VIAL IV ONE (12:20)
[2019-02-08] MEDS ORDERED: PHENYLEPHRINE 10 MG/1 ML VIAL IV ONE (12:20)
[2019-02-08] MEDS ORDERED: NEOSTIGMINE 10 MG/10 ML VIAL ONE (12:21)
[2019-02-08] MEDS ORDERED: SODIUM CHLORIDE 0.9% 250 ML IV ONE (12:21)
[2019-02-08] MEDS ORDERED: SODIUM CHLORIDE 0.9% 100 ML IV ONE (12:21)
[2019-02-08] MEDS ORDERED: GLYCOPYRROLATE 0.4 MG/2 ML VIAL ONE (12:21)
[2019-02-08] MEDS ORDERED: ETOMIDATE 40 MG/20 ML VIAL IV ONE (12:21)
[2019-02-08] MEDS ORDERED: PHENYLEPHRINE 1 MG/10 ML SYRINGE IV ONE (12:21)
[2019-02-08] MEDS ORDERED: ROCURONIUM 100 MG/10 ML VIAL IV ONE (12:21)
[2019-02-08] MEDS ORDERED: SODIUM CHLORIDE 0.9% 1,000 ML IV ONE (12:21)
[2019-02-08] MEDS ORDERED: ONDANSETRON 4 MG/2 ML VIAL IV PRN (12:22)
[2019-02-08 12:50] LABS: Basophils # 0.1 10*3/uL (0.0-0.2); Basophils % 0.7 % (0.0-0.8); Eosinophils # 0.3 10*3/uL (0.0-0.87); Eosinophils % 2.8 % (0.00-10.9); Hematocrit 46.8 VOL% (35.7-47.0); Hemoglobin 13.5 GM/DL (12.0-16.0); Immature Granulocytes % 3.9 %; Immature Granulocytes Absolute 0.48 #; Lymphocytes # 1.2 10*3/uL (1.4-4.0); Lymphocytes % 9.9 % (21.3-54.2); Mean Corpuscular HGB Conc 28.8 GM/DL (32-36); Mean Corpuscular Volume 82.4 FL (87-102); Mean Platelet Volume 9.9 FL (9.6-12.0); Monocytes % 5.2 % (1.7-12.7); NRBC # 0.03 10*3/uL; Neutrophils % 77.5 % (38.7-73.9); Platelet Count 347 T/CUMM (130-400); Red Blood Count 5.68 MC/CUMM (3.8-5.5); Red Cell Distribution Width 18.5 % (9.3-17.3); White Blood Count 12.3 T/CUMM (4-12)
[2019-02-08 12:53] LABS: Calcium 7.8 MG/DL (8.5-10.1); Osmolality,Calculated 280.3 MOS/KG (273-304)
[2019-02-08 12:54] LABS: Anisocytosis 1+; Macrocytosis Slight; Platelet Estimate Normal
[2019-02-08] MEDS: CARVEDILOL 12.5 MG TABLET PO SCH ×3 (14:28→16:02)
[2019-02-08] MEDS: LOSARTAN 50 MG TABLET PO SCH (15:29)
[2019-02-08] MEDS: LEVOFLOXACIN INJ 500 MG in PREMIX 1 EACH IV SCH (15:30)
[2019-02-08] MEDS ORDERED: MAGNESIUM SULF RIDER 4 GM in PREMIX 1 EACH IV PRN (15:35)
[2019-02-08] MEDS ORDERED: CALCIUM GLUCONATE 2,000 MG in SODIUM CHLORIDE 0.9% 100 ML IV ONE (15:35)
[2019-02-08] MEDS ORDERED: MAGNESIUM SULF RIDER 2 GM in PREMIX 1 EACH IV PRN (15:35)
[2019-02-08] MEDS ORDERED: PHENOL 1.4% THROAT SPRAY 177 ML BOTTLE PO PRN (17:39)
[2019-02-09] MEDS: SODIUM CHLORIDE 0.9% 1,000 ML IV SCH (03:15)
[2019-02-09 05:19] LABS: Albumin 2.9 G/DL (3.4-5.0); Bilirubin,Total 0.7 MG/DL (0.2-1.0); Calcium 8.3 MG/DL (8.5-10.1); Osmolality,Calculated 275.5 MOS/KG (273-304); Total Protein 5.9 G/DL (6.4-8.3)
[2019-02-09 05:28] LABS: Basophils % 0.3 % (0.0-0.8); Eosinophils # 0.1 10*3/uL (0.0-0.87); Eosinophils % 0.6 % (0.00-10.9); Hematocrit 45.8 VOL% (35.7-47.0); Hemoglobin 13.2 GM/DL (12.0-16.0); Immature Granulocytes % 3.3 %; Immature Granulocytes Absolute 0.44 #; Lymphocytes # 0.6 10*3/uL (1.4-4.0); Lymphocytes % 4.4 % (21.3-54.2); Mean Corpuscular HGB Conc 28.8 GM/DL (32-36); Mean Corpuscular Volume 81.6 FL (87-102); Mean Platelet Volume 10.4 FL (9.6-12.0); Monocytes % 4.6 % (1.7-12.7); NRBC # 0.04 10*3/uL; Neutrophils % 86.8 % (38.7-73.9); Platelet Count 333 T/CUMM (130-400); Red Blood Count 5.61 MC/CUMM (3.8-5.5); Red Cell Distribution Width 17.8 % (9.3-17.3); White Blood Count 13.2 T/CUMM (4-12)
[2019-02-09 05:34] LABS: Eosinophils 1 % (0-10); Hypochromasia 1+; Lymphocytes 3 % (20-55); Nucleated Red Blood Cells 1 (0-5); Platelet Estimate Adequate; Segmented Neutrophils 90 % (50-85); Total Cells Counted 100
[2019-02-09] MEDS: LOSARTAN 50 MG TABLET PO SCH (09:12)
[2019-02-09] MEDS: CARVEDILOL 12.5 MG TABLET PO SCH (09:12)
[2019-02-09] MEDS: LEVOFLOXACIN INJ 500 MG in PREMIX 1 EACH IV SCH (09:13)
[2019-02-09 12:37] VITALS: BP 138/66
[2019-02-14 16:00] LABS: Stone Analysis Interpretation SEE COMMENTS
== END 2019-02-09 15:43 | disposition home or self-care (01) | DRG 660 ==
LOC: N.RAD 07:07 → N.SDSINP 07:08 → INTOOBSV 08:27 → N.SDSINP 08:27 → OBSVTOIN 08:27 → N.5E 12:29
PROVIDERS: ADMIT Surgery; ATTEND Surgery

== ENCOUNTER 2019-11-06 16:04 | Inpatient (IN) ==
[2019-11-06 19:54] LABS: Immature Granulocytes % 3.5 %; Red Blood Count 5.96 MC/CUMM (3.8-5.5)
[2019-11-06] MEDS ORDERED: ONDANSETRON 4 MG/2 ML VIAL IV STA (19:59)
[2019-11-06] MEDS ORDERED: HYDROmorphone 2 MG/1 ML VIAL IV STA (19:59)
[2019-11-06] MEDS ORDERED: SODIUM CHLORIDE 0.9% 500 ML IV STA (19:59)
[2019-11-06 20:04] LABS: Basophils # 0.1 10*3/uL (0.0-0.2); Basophils % 0.7 % (0.0-0.8); Eosinophils # 0.1 10*3/uL (0.0-0.87); Eosinophils % 0.7 % (0.00-10.9); Hematocrit 40.3 VOL% (35.7-47.0); Hemoglobin 11.1 GM/DL (12.0-16.0); Immature Granulocytes Absolute 0.65 #; Lymphocytes # 0.8 10*3/uL (1.4-4.0); Lymphocytes % 4.5 % (21.3-54.2); Mean Corpuscular HGB Conc 27.5 GM/DL (32-36); Mean Corpuscular Volume 67.6 FL (87-102); Monocytes % 3.4 % (1.7-12.7); NRBC # 0.02 10*3/uL; Neutrophils % 87.2 % (38.7-73.9); Platelet Count 596 T/CUMM (130-400); Red Cell Distribution Width 20.5 % (9.3-17.3); White Blood Count 18.8 T/CUMM (4-12)
[2019-11-06 20:14] LABS: Albumin 3.2 G/DL (3.4-5.0); Bilirubin,Total 0.8 MG/DL (0.2-1.0); Calcium 8.6 MG/DL (8.5-10.1); Osmolality,Calculated 256.2 MOS/KG (273-304); Total Protein 7.2 G/DL (6.4-8.3)
[2019-11-06 20:19] LABS: Amorphous Crystals,Urine Occasional /HPF (Few); Apearance,Urine CLOUDY (Clear); Bacteria,Urine Few /HPF (Few); Bilirubin,Urine Negative (Negative); Blood, Urine Small mg/dL (Negative); Glucose,Urine (UA) Negative (Negative); Ketones,Urine Negative (Negative); Nitrite,Urine Positive (Negative); Protein,Urine 30 MG/DL; RBC,Urine 4 /HPF (0-4); Squamous Epithelial Cell,Urine Occasional /HPF (0-10); Urine Color Yellow (Yellow); Urine Specific Gravity 1.009 (1.001-1.035); Urine Urobilinogen < 2.0 EU/DL (0.2-1.0); WBC,Urine 171 /HPF (0-6)
[2019-11-06 20:28] LABS: Eosinophils 1 % (0-10); Lymphocytes 11 % (20-55); Segmented Neutrophils 86 % (50-85); Total Cells Counted 100
[2019-11-06] MEDS ORDERED: cefTRIAXone 1,000 MG in SODIUM CHLORIDE 0.9% 100 ML IV STA (21:52)
[2019-11-07] MEDS ORDERED: ONDANSETRON 4 MG/2 ML VIAL IV PRN (02:04)
[2019-11-07] MEDS ORDERED: ACETAMINOPHEN 325 MG TABLET PO PRN (02:04)
[2019-11-07] MEDS ORDERED: HYDROmorphone 2 MG/1 ML VIAL IV PRN (02:04)
[2019-11-07] MEDS ORDERED: GLUCAGON 1 MG VIAL IM PRN (02:04)
[2019-11-07] MEDS ORDERED: DEXTROSE 50% 25 GM/50 ML VIAL IV PRN (02:04)
[2019-11-07] MEDS: SODIUM CHLORIDE 0.9% 1,000 ML IV SCH ×3 (03:10→22:54)
[2019-11-07] MEDS ORDERED: INSULIN REGULAR 100 UNIT/ML SUBCUT SCH (07:30)
[2019-11-07 07:32] LABS: Albumin 2.7 G/DL (3.4-5.0); Calcium 8.3 MG/DL (8.5-10.1); Osmolality,Calculated 261.7 MOS/KG (273-304); Total Protein 6.1 G/DL (6.4-8.3)
[2019-11-07 07:32] LABS: Basophils # 0.1 10*3/uL (0.0-0.2); Basophils % 0.5 % (0.0-0.8); Eosinophils # 0.3 10*3/uL (0.0-0.87); Eosinophils % 1.4 % (0.00-10.9); Hematocrit 36.8 VOL% (35.7-47.0); Immature Granulocytes % 4.4 %; Immature Granulocytes Absolute 0.79 #; Lymphocytes % 5.6 % (21.3-54.2); Mean Corpuscular HGB Conc 27.4 GM/DL (32-36); Mean Corpuscular Volume 68.4 FL (87-102); Monocytes % 5.2 % (1.7-12.7); NRBC # 0.02 10*3/uL; Neutrophils % 82.9 % (38.7-73.9); Platelet Count 511 T/CUMM (130-400); Red Blood Count 5.38 MC/CUMM (3.8-5.5); Red Cell Distribution Width 19.9 % (9.3-17.3)
[2019-11-07 07:37] LABS: Hemoglobin 10.1 GM/DL (12.0-16.0)
[2019-11-07 07:44] LABS: Band Neutrophils 1 % (0-10); Eosinophils 2 % (0-10); Lymphocytes 5 % (20-55); Segmented Neutrophils 87 % (50-85); Total Cells Counted 100
[2019-11-07 07:45] LABS: Anisocytosis 1+; Hypochromasia 1+
[2019-11-07 07:46] LABS: Elliptocytes 1+; Platelet Estimate Increased
[2019-11-07] MEDS ORDERED: FUROSEMIDE 40 MG TABLET PO PRN (08:01)
[2019-11-07] MEDS: ACYCLOVIR 800 MG TABLET PO SCH ×3 (08:23→22:24)
[2019-11-07] MEDS: oxyCODONE/ACETAMINOPHEN 5-325 MG TABLET PO PRN (08:23)
[2019-11-07] MEDS: PANTOPRAZOLE 40 MG TABLET PO SCH (08:23)
[2019-11-07] MEDS: LOSARTAN 50 MG TABLET PO SCH (08:23)
[2019-11-07] MEDS: DOCUSATE SODIUM 100 MG CAPSULE PO SCH ×4 (08:24→22:24)
[2019-11-07] MEDS: carvediloL 12.5 MG TABLET PO SCH (16:40)
[2019-11-07] MEDS: FLUTICASONE/SALMETEROL 250-50 DISKUS 14 DOSE INH SCH (22:24)
[2019-11-07] MEDS: GABAPENTIN 100 MG CAPSULE PO SCH (22:24)
[2019-11-08] MEDS: cefTRIAXone 1,000 MG in SODIUM CHLORIDE 0.9% 100 ML IV SCH ×2 (01:50→22:34)
[2019-11-08 06:20] LABS: Basophils # 0.2 10*3/uL (0.0-0.2); Basophils % 0.8 % (0.0-0.8); Eosinophils # 0.3 10*3/uL (0.0-0.87); Eosinophils % 1.3 % (0.00-10.9); Hematocrit 39.7 VOL% (35.7-47.0); Hemoglobin 10.7 GM/DL (12.0-16.0); Immature Granulocytes % 5.5 %; Immature Granulocytes Absolute 1.18 #; Lymphocytes # 1.3 10*3/uL (1.4-4.0); Lymphocytes % 6.2 % (21.3-54.2); Mean Corpuscular Volume 68.7 FL (87-102); Mean Platelet Volume 8.9 FL (9.6-12.0); Monocytes % 5.3 % (1.7-12.7); NRBC # 0.02 10*3/uL; Neutrophils % 80.9 % (38.7-73.9); Platelet Count 515 T/CUMM (130-400); Red Blood Count 5.78 MC/CUMM (3.8-5.5); White Blood Count 21.3 T/CUMM (4-12)
[2019-11-08 06:21] LABS: Alanine Aminotransferase < 9 U/L (13-56); Albumin 2.5 G/DL (3.4-5.0); Alkaline Phosphatase 113 U/L (45-117); Aspartate Amino Transferase 16 U/L (0-37); Blood Urea Nitrogen 18 MG/DL (7-18); Estimated Glom Filtration Rate 24 ML/MIN; Glucose 64 MG/DL (74-106); HDL Cholesterol 40 MG/DL (40-60); Osmolality,Calculated 257.9 MOS/KG (273-304); Risk Ratio 2.63; Thyroid Stimulating Hormone 0.691 uIU/ml (0.358-3.74); Total Protein 6.3 G/DL (6.4-8.3); Triglycerides 105 MG/DL (2-150)
[2019-11-08 06:35] LABS: Eosinophils 4 % (0-10); Lymphocytes 5 % (20-55); Segmented Neutrophils 86 % (50-85); Total Cells Counted 100
[2019-11-08 06:36] LABS: Elliptocytes Few; Hypochromasia 1+; Microcytosis Slight; Platelet Estimate Adequate
[2019-11-08] MEDS: SODIUM CHLORIDE 0.9% 1,000 ML IV SCH (07:52)
[2019-11-08] MEDS: MAGNESIUM SULF INJ 2 GM in SODIUM CHLORIDE 0.9% 1,000 ML IV SCH ×2 (09:27→21:00)
[2019-11-08] MEDS: GABAPENTIN 100 MG CAPSULE PO SCH ×2 (09:27→21:01)
[2019-11-08] MEDS: LOSARTAN 50 MG TABLET PO SCH (09:27)
[2019-11-08] MEDS: DOCUSATE SODIUM 100 MG CAPSULE PO SCH ×4 (09:27→21:02)
[2019-11-08] MEDS: ACYCLOVIR 800 MG TABLET PO SCH ×3 (09:28→21:01)
[2019-11-08] MEDS: PANTOPRAZOLE 40 MG TABLET PO SCH (09:28)
[2019-11-08] MEDS: carvediloL 12.5 MG TABLET PO SCH ×2 (09:28→16:45)
[2019-11-08] MEDS: FLUTICASONE/SALMETEROL 250-50 DISKUS 14 DOSE INH SCH ×2 (09:34→21:01)
[2019-11-08] MEDS: oxyCODONE/ACETAMINOPHEN 5-325 MG TABLET PO PRN (09:37)
[2019-11-08] MEDS: FUROSEMIDE 20 MG TABLET PO SCH (12:16)
[2019-11-08] MEDS ORDERED: BISACODYL 5 MG TABLET PO PRN (20:12)
[2019-11-09 06:13] LABS: Albumin 2.6 G/DL (3.4-5.0); Bilirubin,Total 0.5 MG/DL (0.2-1.0); Osmolality,Calculated 268.2 MOS/KG (273-304); Total Protein 6.3 G/DL (6.4-8.3)
[2019-11-09 06:33] LABS: Basophils # 0.1 10*3/uL (0.0-0.2); Basophils % 0.8 % (0.0-0.8); Eosinophils # 0.4 10*3/uL (0.0-0.87); Eosinophils % 2.2 % (0.00-10.9); Hematocrit 37.5 VOL% (35.7-47.0); Immature Granulocytes % 3.5 %; Immature Granulocytes Absolute 0.64 #; Lymphocytes # 0.8 10*3/uL (1.4-4.0); Lymphocytes % 4.5 % (21.3-54.2); Mean Corpuscular HGB Conc 26.9 GM/DL (32-36); Mean Corpuscular Volume 68.4 FL (87-102); Mean Platelet Volume 9.3 FL (9.6-12.0); Monocytes % 6.1 % (1.7-12.7); Neutrophils % 82.9 % (38.7-73.9); Platelet Count 483 T/CUMM (130-400); Red Blood Count 5.48 MC/CUMM (3.8-5.5); Red Cell Distribution Width 19.9 % (9.3-17.3); White Blood Count 18.1 T/CUMM (4-12)
[2019-11-09 06:39] LABS: Hemoglobin 10.1 GM/DL (12.0-16.0)
[2019-11-09 06:52] LABS: Eosinophils 3 % (0-10); Hypochromasia 1+; Lymphocytes 6 % (20-55); Ovalocytes Slight; Platelet Estimate Adequate; Segmented Neutrophils 88 % (50-85); Total Cells Counted 100
[2019-11-09 06:53] LABS: Microcytosis Slight
[2019-11-09] MEDS ORDERED: LACTULOSE 20 GM/30 ML UDCUP PO PRN (07:49)
[2019-11-09] MEDS: LOSARTAN 50 MG TABLET PO SCH (08:38)
[2019-11-09] MEDS: PANTOPRAZOLE 40 MG TABLET PO SCH (08:38)
[2019-11-09] MEDS: ACYCLOVIR 800 MG TABLET PO SCH ×3 (08:38→20:26)
[2019-11-09] MEDS: carvediloL 12.5 MG TABLET PO SCH ×2 (08:38→16:43)
[2019-11-09] MEDS: GABAPENTIN 100 MG CAPSULE PO SCH ×2 (08:38→20:26)
[2019-11-09] MEDS: DOCUSATE SODIUM 100 MG CAPSULE PO SCH ×4 (08:38→20:26)
[2019-11-09] MEDS: FLUTICASONE/SALMETEROL 250-50 DISKUS 14 DOSE INH SCH ×2 (08:39→20:25)
[2019-11-09] MEDS: MAGNESIUM SULF INJ 2 GM in SODIUM CHLORIDE 0.9% 1,000 ML IV SCH (11:20)
[2019-11-09] MEDS: FUROSEMIDE 20 MG TABLET PO SCH (11:59)
[2019-11-09] MEDS: oxyCODONE/ACETAMINOPHEN 5-325 MG TABLET PO PRN (20:26)
[2019-11-09] MEDS: cefTRIAXone 1,000 MG in SODIUM CHLORIDE 0.9% 100 ML IV SCH (21:18)
[2019-11-10] MEDS: MAGNESIUM SULF INJ 2 GM in SODIUM CHLORIDE 0.9% 1,000 ML IV SCH (00:48)
[2019-11-10] MEDS: oxyCODONE/ACETAMINOPHEN 5-325 MG TABLET PO PRN (03:41)
[2019-11-10 07:32] LABS: Calcium 7.8 MG/DL (8.5-10.1); Osmolality,Calculated 272.8 MOS/KG (273-304)
[2019-11-10 07:39] LABS: Basophils # 0.1 10*3/uL (0.0-0.2); Basophils % 0.8 % (0.0-0.8); Eosinophils # 0.3 10*3/uL (0.0-0.87); Eosinophils % 2.2 % (0.00-10.9); Hematocrit 32.4 VOL% (35.7-47.0); Immature Granulocytes % 4.2 %; Immature Granulocytes Absolute 0.61 #; Lymphocytes # 0.9 10*3/uL (1.4-4.0); Lymphocytes % 6.2 % (21.3-54.2); Mean Corpuscular HGB Conc 28.4 GM/DL (32-36); Mean Platelet Volume 9.4 FL (9.6-12.0); Monocytes % 5.7 % (1.7-12.7); NRBC # 0.02 10*3/uL; Neutrophils % 80.9 % (38.7-73.9); Platelet Count 387 T/CUMM (130-400); Red Blood Count 4.91 MC/CUMM (3.8-5.5); Red Cell Distribution Width 19.8 % (9.3-17.3); White Blood Count 14.6 T/CUMM (4-12)
[2019-11-10 07:41] LABS: Hemoglobin 9.2 GM/DL (12.0-16.0)
[2019-11-10 07:45] LABS: Band Neutrophils 5 % (0-10); Eosinophils 3 % (0-10); Lymphocytes 4 % (20-55); Nucleated Red Blood Cells 2 (0-5); Segmented Neutrophils 85 % (50-85); Total Cells Counted 100
[2019-11-10 07:46] LABS: Anisocytosis 1+; Ovalocytes 1+; Platelet Estimate Normal; Polychromasia Slight; Smudge Cells Few
[2019-11-10] MEDS ORDERED: LEVOFLOXACIN 500 MG TABLET PO SCH (08:00)
[2019-11-10] MEDS: LOSARTAN 50 MG TABLET PO SCH (09:22)
[2019-11-10] MEDS: ACYCLOVIR 800 MG TABLET PO SCH (09:22)
[2019-11-10] MEDS: DOCUSATE SODIUM 100 MG CAPSULE PO SCH ×2 (09:22→09:23)
[2019-11-10] MEDS: carvediloL 12.5 MG TABLET PO SCH (09:23)
[2019-11-10] MEDS: PANTOPRAZOLE 40 MG TABLET PO SCH (09:23)
[2019-11-10] MEDS: FLUTICASONE/SALMETEROL 250-50 DISKUS 14 DOSE INH SCH (09:23)
[2019-11-10] MEDS: GABAPENTIN 100 MG CAPSULE PO SCH (09:23)
[2019-11-10 11:24] VITALS: BP 149/73
[2019-11-10] MEDS: FUROSEMIDE 20 MG TABLET PO SCH (11:59)
== END 2019-11-10 11:59 | disposition home or self-care (01) | DRG 683 ==
LOC: N.ED 16:04 → N.EDINP 16:04 → N.3E 11-07 01:32
PROVIDERS: ADMIT Family Medicine; ATTEND Family Medicine

== ENCOUNTER 2019-11-26 18:43 | Inpatient (IN) ==
[2019-11-26] MEDS ORDERED: LACTATED RINGERS 500 ML IV ONE (19:06)
[2019-11-26] MEDS ORDERED: SODIUM CHLORIDE 0.9% 1,000 ML IV PRN ×2 (19:08→21:53)
[2019-11-26] MEDS ORDERED: PANTOPRAZOLE INJ 80 MG in SODIUM CHLORIDE 0.9% 100 ML IV ONE ×2 (19:10→21:11)
[2019-11-26 19:35] LABS: INR 1.4; PT Patient Result 14.6 SECS (9.8-11.9); Partial Thromboplastin Time 30.5 SECS (23.9-33.8)
[2019-11-26 19:44] LABS: Albumin 2.7 G/DL (3.4-5.0); Bilirubin,Total 0.7 MG/DL (0.2-1.0); Calcium 7.8 MG/DL (8.5-10.1); Osmolality,Calculated 283.8 MOS/KG (273-304); Total Protein 6.2 G/DL (6.4-8.3)
[2019-11-26 19:48] LABS: Basophils # 0.1 10*3/uL (0.0-0.2); Basophils % 0.4 % (0.0-0.8); Eosinophils % 0.1 % (0.00-10.9); Hematocrit 26.8 VOL% (35.7-47.0); Hemoglobin 7.4 GM/DL (12.0-16.0); Immature Granulocytes Absolute 2.39 #; Lymphocytes % 2.8 % (21.3-54.2); Mean Corpuscular HGB Conc 27.6 GM/DL (32-36); Mean Corpuscular Volume 67.8 FL (87-102); Monocytes % 3.6 % (1.7-12.7); NRBC # 0.09 10*3/uL; Neutrophils % 86.1 % (38.7-73.9); Platelet Count 682 T/CUMM (130-400); Red Blood Count 3.95 MC/CUMM (3.8-5.5); Red Cell Distribution Width 19.4 % (9.3-17.3); White Blood Count 34.2 T/CUMM (4-12)
[2019-11-26 20:03] LABS: Lymphocytes 2 % (20-55); Nucleated Red Blood Cells 1 (0-5); Segmented Neutrophils 96 % (50-85); Total Cells Counted 100
[2019-11-26 20:04] LABS: Elliptocytes 1+; Hypochromasia 1+; Macrocytosis 1+; Platelet Estimate Increased; Polychromasia 2+
[2019-11-26] MEDS ORDERED: cefTRIAXone 1,000 MG in SODIUM CHLORIDE 0.9% 100 ML IV STA (20:43)
[2019-11-26 21:11] LABS: Apearance,Urine Slightly Hazy (Clear); Bacteria,Urine Occasional /HPF (Few); Bilirubin,Urine Negative (Negative); Blood, Urine Large mg/dL (Negative); Glucose,Urine (UA) Negative (Negative); Hyaline Casts,Urine 20 /LPF (0-3); Ketones,Urine Negative (Negative); Mucus,Urine Occasional /LPF (Occasional); Nitrite,Urine Negative (Negative); Protein,Urine 30 MG/DL; RBC,Urine 3 /HPF (0-4); Squamous Epithelial Cell,Urine Occasional /HPF (0-10); Urine Color Amber (Yellow); Urine Specific Gravity 1.017 (1.001-1.035); Urine Urobilinogen < 2.0 EU/DL (0.2-1.0); WBC,Urine 5 /HPF (0-6)
[2019-11-26] MEDS ORDERED: PANTOPRAZOLE 40 MG VIAL IV SCH (21:25)
[2019-11-26] MEDS ORDERED: ALBUTEROL 2.5 MG/3 ML NEB RESP TX PRN (21:25)
[2019-11-26] MEDS ORDERED: PROMETHAZINE 25 MG/1 ML VIAL IM PRN (21:25)
[2019-11-26 21:38] LABS: % Iron Saturation 4.5 % (18-50)
[2019-11-26] MEDS ORDERED: cefTRIAXone 1,000 MG in SYRINGE 1 EACH IV SCH (22:00)
[2019-11-26] MEDS ORDERED: PANTOPRAZOLE INJ 200 MG in SODIUM CHLORIDE 0.9% 250 ML IV SCH (22:00)
[2019-11-26] MEDS: LACTATED RINGERS 1,000 ML IV SCH (22:00)
[2019-11-26 22:11] LABS: Hematocrit 22.2 VOL% (35.7-47.0)
[2019-11-26 22:15] LABS: Hemoglobin 6.3 GM/DL (12.0-16.0)
[2019-11-27] MEDS: SUCRALFATE 1 GM/10 ML UDCUP PO SCH ×3 (02:48→12:25)
[2019-11-27] MEDS: LACTATED RINGERS 1,000 ML IV SCH ×3 (06:33→13:55)
[2019-11-27 07:05] LABS: Calcium 7.9 MG/DL (8.5-10.1); Osmolality,Calculated 285.7 MOS/KG (273-304)
[2019-11-27 07:07] LABS: Albumin 2.4 G/DL (3.4-5.0); Bilirubin,Total 1.3 MG/DL (0.2-1.0); Calcium 7.8 MG/DL (8.5-10.1); Osmolality,Calculated 286.7 MOS/KG (273-304); Total Protein 5.9 G/DL (6.4-8.3)
[2019-11-27 07:20] LABS: Basophils # 0.1 10*3/uL (0.0-0.2); Basophils % 0.5 % (0.0-0.8); Eosinophils # 0.1 10*3/uL (0.0-0.87); Eosinophils % 0.2 % (0.00-10.9); Hematocrit 29.3 VOL% (35.7-47.0); Hemoglobin 8.7 GM/DL (12.0-16.0); Immature Granulocytes % 6.3 %; Immature Granulocytes Absolute 1.51 #; Lymphocytes # 1.3 10*3/uL (1.4-4.0); Lymphocytes % 5.6 % (21.3-54.2); Mean Corpuscular HGB Conc 29.7 GM/DL (32-36); Mean Corpuscular Volume 73.1 FL (87-102); Mean Platelet Volume 9.7 FL (9.6-12.0); Monocytes % 5.8 % (1.7-12.7); NRBC # 0.07 10*3/uL; Neutrophils % 81.6 % (38.7-73.9); Platelet Count 534 T/CUMM (130-400); Red Blood Count 4.01 MC/CUMM (3.8-5.5); Red Cell Distribution Width 23.5 % (9.3-17.3); White Blood Count 24.1 T/CUMM (4-12)
[2019-11-27 07:25] LABS: Lymphocytes 4 % (20-55); Segmented Neutrophils 95 % (50-85); Total Cells Counted 100
[2019-11-27 07:26] LABS: Hypochromasia 1+; Microcytosis 1+; Ovalocytes Few; Platelet Estimate Increased; Polychromasia Slight
[2019-11-27] MEDS ORDERED: ETOMIDATE 20 MG/10 ML VIAL IV ONE (09:00)
[2019-11-27] MEDS ORDERED: propofoL 200 MG/20 ML VIAL IV ONE (09:00)
[2019-11-27] MEDS ORDERED: LIDOCAINE 2% 5 ML VIAL ONE (09:00)
[2019-11-27] MEDS: cefTRIAXone 1,000 MG in SYRINGE 1 EACH IV SCH (09:00)
[2019-11-27] MEDS: PANTOPRAZOLE 40 MG TABLET PO SCH (20:38)
[2019-11-28] MEDS ORDERED: oxyCODONE/ACETAMINOPHEN 5-325 MG TABLET PO PRN (00:32)
[2019-11-28] MEDS: ONDANSETRON 4 MG/2 ML VIAL IV PRN (02:02)
[2019-11-28 06:02] LABS: Osmolality,Calculated 286.4 MOS/KG (273-304)
[2019-11-28 06:08] LABS: Basophils # 0.2 10*3/uL (0.0-0.2); Basophils % 0.7 % (0.0-0.8); Eosinophils # 0.5 10*3/uL (0.0-0.87); Eosinophils % 1.7 % (0.00-10.9); Hematocrit 29.3 VOL% (35.7-47.0); Hemoglobin 8.5 GM/DL (12.0-16.0); Immature Granulocytes % 7.8 %; Immature Granulocytes Absolute 2.12 #; Lymphocytes # 1.3 10*3/uL (1.4-4.0); Lymphocytes % 4.8 % (21.3-54.2); Mean Corpuscular Volume 74.6 FL (87-102); Mean Platelet Volume 9.7 FL (9.6-12.0); NRBC # 0.04 10*3/uL; Platelet Count 560 T/CUMM (130-400); Red Blood Count 3.93 MC/CUMM (3.8-5.5); Red Cell Distribution Width 23.3 % (9.3-17.3); White Blood Count 27.1 T/CUMM (4-12)
[2019-11-28 06:18] LABS: Band Neutrophils 1 % (0-10); Eosinophils 3 % (0-10); Lymphocytes 2 % (20-55); Platelet Estimate Adequate; Segmented Neutrophils 90 % (50-85); Total Cells Counted 100
[2019-11-28 06:19] LABS: Hypochromasia 2+; Microcytosis 1+; Ovalocytes Slight
[2019-11-28] MEDS: cefTRIAXone 1,000 MG in SYRINGE 1 EACH IV SCH (09:48)
[2019-11-28] MEDS: FLUTICASONE/SALMETEROL 250-50 DISKUS 14 DOSE INH SCH ×2 (09:52→21:52)
[2019-11-28] MEDS: LOSARTAN 50 MG TABLET PO SCH (09:52)
[2019-11-28] MEDS: PANTOPRAZOLE 40 MG TABLET PO SCH ×2 (09:52→21:54)
[2019-11-28] MEDS: GABAPENTIN 100 MG CAPSULE PO SCH ×2 (09:52→21:54)
[2019-11-28] MEDS: FUROSEMIDE 40 MG TABLET PO SCH (09:56)
[2019-11-28] MEDS: LACTATED RINGERS 1,000 ML IV SCH ×2 (10:06→14:43)
[2019-11-28] MEDS ORDERED: BISACODYL 5 MG TABLET PO ONE (12:00)
[2019-11-28] MEDS: FUROSEMIDE 20 MG TABLET PO SCH (12:54)
[2019-11-28] MEDS ORDERED: POLYETHYLENE GLYCOL POWDER 255 GM BOTTLE PO ONE ×2 (15:00→18:00)
[2019-11-28] MEDS: carvediloL 12.5 MG TABLET PO SCH (16:58)
[2019-11-28 17:08] LABS: Basophils # 0.1 10*3/uL (0.0-0.2); Basophils % 0.5 % (0.0-0.8); Eosinophils # 0.4 10*3/uL (0.0-0.87); Eosinophils % 1.8 % (0.00-10.9); Hematocrit 26.1 VOL% (35.7-47.0); Hemoglobin 7.5 GM/DL (12.0-16.0); Immature Granulocytes % 7.2 %; Immature Granulocytes Absolute 1.49 #; Lymphocytes # 1.1 10*3/uL (1.4-4.0); Lymphocytes % 5.2 % (21.3-54.2); Mean Corpuscular HGB Conc 28.7 GM/DL (32-36); Mean Corpuscular Volume 74.8 FL (87-102); Mean Platelet Volume 9.5 FL (9.6-12.0); Monocytes % 4.9 % (1.7-12.7); NRBC # 0.04 10*3/uL; Neutrophils % 80.4 % (38.7-73.9); Platelet Count 498 T/CUMM (130-400); Red Blood Count 3.49 MC/CUMM (3.8-5.5); Red Cell Distribution Width 23.4 % (9.3-17.3); White Blood Count 20.6 T/CUMM (4-12)
[2019-11-28] MEDS: DESITIN 4OZ/NYSTATIN 15 GRAM MIXTURE PASTE TOP SCH ×2 (17:38→21:00)
[2019-11-28 18:23] LABS: Lymphocytes 5 % (20-55); Ovalocytes Few; Polychromasia 1+; Segmented Neutrophils 91 % (50-85); Total Cells Counted 100
[2019-11-28 18:24] LABS: Anisocytosis 2+; Hypochromasia 2+; Microcytosis 2+
[2019-11-28 18:25] LABS: Helmet Cells Few; Platelet Estimate Adequate
[2019-11-29 03:06] LABS: Basophils # 0.1 10*3/uL (0.0-0.2); Basophils % 0.6 % (0.0-0.8); Eosinophils # 0.3 10*3/uL (0.0-0.87); Eosinophils % 1.3 % (0.00-10.9); Immature Granulocytes % 8.8 %; Immature Granulocytes Absolute 1.84 #; Lymphocytes # 0.6 10*3/uL (1.4-4.0); Lymphocytes % 2.8 % (21.3-54.2); Mean Corpuscular HGB Conc 28.1 GM/DL (32-36); Mean Corpuscular Volume 75.9 FL (87-102); Mean Platelet Volume 9.1 FL (9.6-12.0); Monocytes % 5.1 % (1.7-12.7); NRBC # 0.04 10*3/uL; Neutrophils % 81.4 % (38.7-73.9); Platelet Count 471 T/CUMM (130-400); Red Cell Distribution Width 23.5 % (9.3-17.3); White Blood Count 20.9 T/CUMM (4-12)
[2019-11-29] MEDS: LOSARTAN 50 MG TABLET PO SCH ×3 (03:06→22:32)
[2019-11-29 03:17] LABS: INR 1.2; PT Patient Result 12.7 SECS (9.8-11.9)
[2019-11-29 03:33] LABS: Hemoglobin 7.9 GM/DL (12.0-16.0)
[2019-11-29 03:46] LABS: Calcium 7.8 MG/DL (8.5-10.1); Osmolality,Calculated 280.5 MOS/KG (273-304)
[2019-11-29 03:58] LABS: Anisocytosis 1+; Band Neutrophils 3 % (0-10); Lymphocytes 3 % (20-55); Segmented Neutrophils 91 % (50-85); Total Cells Counted 100
[2019-11-29 03:59] LABS: Hypochromasia 1+; Ovalocytes 1+; Platelet Estimate Normal; Polychromasia 1+
[2019-11-29] MEDS ORDERED: FUROSEMIDE 40 MG/4 ML VIAL ONE (05:13)
[2019-11-29] MEDS ORDERED: FUROSEMIDE 40 MG/4 ML VIAL IV ONE (05:29)
[2019-11-29] MEDS ORDERED: MAGNESIUM SULF RIDER 2 GM in PREMIX 1 EACH IV ONE (05:42)
[2019-11-29] MEDS ORDERED: MAGNESIUM CITRATE 300 ML BOTTLE PO ONE (06:00)
[2019-11-29] MEDS: POTASSIUM CHLORIDE RIDER 10 MEQ in PREMIX 1 EACH IV SCH ×4 (06:13→19:18)
[2019-11-29] MEDS: LACTATED RINGERS 1,000 ML IV SCH (06:39)
[2019-11-29] MEDS ORDERED: LACTATED RINGERS 1,000 ML IV SCH (08:00)
[2019-11-29] MEDS: cefTRIAXone 1,000 MG in SYRINGE 1 EACH IV SCH (08:35)
[2019-11-29] MEDS: FLUTICASONE/SALMETEROL 250-50 DISKUS 14 DOSE INH SCH ×2 (09:05→22:33)
[2019-11-29] MEDS: GABAPENTIN 100 MG CAPSULE PO SCH ×2 (09:47→22:32)
[2019-11-29] MEDS: carvediloL 12.5 MG TABLET PO SCH ×2 (09:49→18:53)
[2019-11-29] MEDS: PANTOPRAZOLE 40 MG TABLET PO SCH ×2 (09:51→22:32)
[2019-11-29] MEDS: FUROSEMIDE 40 MG TABLET PO SCH (09:51)
[2019-11-29] MEDS: DESITIN 4OZ/NYSTATIN 15 GRAM MIXTURE PASTE TOP SCH ×2 (13:32→22:33)
[2019-11-29] MEDS: FUROSEMIDE 20 MG TABLET PO SCH (13:36)
[2019-11-29] MEDS ORDERED: POTASSIUM CHLORIDE RIDER 100 ML IV ONE ×2 (13:52→19:15)
[2019-11-30] MEDS: oxyCODONE/ACETAMINOPHEN 5-325 MG TABLET PO PRN ×2 (04:59→22:22)
[2019-11-30 05:17] LABS: Basophils # 0.1 10*3/uL (0.0-0.2); Basophils % 0.6 % (0.0-0.8); Eosinophils # 0.2 10*3/uL (0.0-0.87); Eosinophils % 1.1 % (0.00-10.9); Hematocrit 27.3 VOL% (35.7-47.0); Hemoglobin 7.9 GM/DL (12.0-16.0); Immature Granulocytes % 6.7 %; Immature Granulocytes Absolute 1.02 #; Lymphocytes # 0.5 10*3/uL (1.4-4.0); Lymphocytes % 3.4 % (21.3-54.2); Mean Corpuscular HGB Conc 28.9 GM/DL (32-36); Mean Corpuscular Volume 73.6 FL (87-102); Mean Platelet Volume 10.2 FL (9.6-12.0); Monocytes % 5.9 % (1.7-12.7); NRBC # 0.02 10*3/uL; Neutrophils % 82.3 % (38.7-73.9); Platelet Count 405 T/CUMM (130-400); Red Blood Count 3.71 MC/CUMM (3.8-5.5); Red Cell Distribution Width 23.2 % (9.3-17.3); White Blood Count 15.1 T/CUMM (4-12)
[2019-11-30 05:37] LABS: Calcium 7.9 MG/DL (8.5-10.1); Osmolality,Calculated 274.8 MOS/KG (273-304)
[2019-11-30 05:48] LABS: Eosinophils 1 % (0-10); Hypochromasia 2+; Lymphocytes 1 % (20-55); Microcytosis 1+; Nucleated Red Blood Cells 1 (0-5); Ovalocytes Slight; Platelet Estimate Adequate; Segmented Neutrophils 94 % (50-85); Total Cells Counted 100
[2019-11-30] MEDS ORDERED: PANTOPRAZOLE 40 MG VIAL IV SCH (09:00)
[2019-11-30] MEDS: PANTOPRAZOLE 40 MG TABLET PO SCH ×2 (09:13→20:55)
[2019-11-30] MEDS: FUROSEMIDE 40 MG TABLET PO SCH (09:16)
[2019-11-30] MEDS: DESITIN 4OZ/NYSTATIN 15 GRAM MIXTURE PASTE TOP SCH ×2 (09:16→20:56)
[2019-11-30] MEDS: FLUTICASONE/SALMETEROL 250-50 DISKUS 14 DOSE INH SCH ×2 (09:16→20:56)
[2019-11-30] MEDS: GABAPENTIN 100 MG CAPSULE PO SCH ×2 (09:17→20:55)
[2019-11-30] MEDS: cefTRIAXone 1,000 MG in SYRINGE 1 EACH IV SCH (09:18)
[2019-11-30] MEDS: carvediloL 12.5 MG TABLET PO SCH ×2 (09:18→16:32)
[2019-11-30] MEDS: LOSARTAN 50 MG TABLET PO SCH ×2 (09:18→20:55)
[2019-11-30] MEDS: FUROSEMIDE 20 MG TABLET PO SCH (12:23)
[2019-12-01 07:00] LABS: Albumin 2.5 G/DL (3.4-5.0); Calcium 8.1 MG/DL (8.5-10.1); Osmolality,Calculated 274.8 MOS/KG (273-304)
[2019-12-01 07:01] LABS: Basophils # 0.1 10*3/uL (0.0-0.2); Basophils % 0.7 % (0.0-0.8); Eosinophils # 0.3 10*3/uL (0.0-0.87); Eosinophils % 2.2 % (0.00-10.9); Hematocrit 29.5 VOL% (35.7-47.0); Immature Granulocytes Absolute 1.04 #; Lymphocytes # 0.9 10*3/uL (1.4-4.0); Lymphocytes % 5.8 % (21.3-54.2); Mean Corpuscular HGB Conc 28.8 GM/DL (32-36); Mean Corpuscular Volume 73.2 FL (87-102); Mean Platelet Volume 10.4 FL (9.6-12.0); Monocytes % 4.2 % (1.7-12.7); NRBC # 0.03 10*3/uL; Neutrophils % 80.1 % (38.7-73.9); Platelet Count 424 T/CUMM (130-400); Red Blood Count 4.03 MC/CUMM (3.8-5.5); White Blood Count 14.9 T/CUMM (4-12)
[2019-12-01 07:02] LABS: Hemoglobin 8.5 GM/DL (12.0-16.0)
[2019-12-01 07:46] LABS: Band Neutrophils 5 % (0-10); Lymphocytes 6 % (20-55); Metamyelocytes 3 %; Segmented Neutrophils 81 % (50-85); Total Cells Counted 100
[2019-12-01 07:47] LABS: Anisocytosis 1+; Elliptocytes Few; Hypochromasia 3+; Macrocytosis 1+; Platelet Estimate Increased; Polychromasia 2+
[2019-12-01] MEDS: POTASSIUM CHLORIDE RIDER 10 MEQ in PREMIX 1 EACH IV SCH ×3 (09:07→12:14)
[2019-12-01] MEDS: cefTRIAXone 1,000 MG in SYRINGE 1 EACH IV SCH (09:09)
[2019-12-01] MEDS: PANTOPRAZOLE 40 MG TABLET PO SCH ×2 (09:19→22:12)
[2019-12-01] MEDS: DESITIN 4OZ/NYSTATIN 15 GRAM MIXTURE PASTE TOP SCH ×2 (09:19→22:11)
[2019-12-01] MEDS: carvediloL 12.5 MG TABLET PO SCH ×2 (09:20→18:01)
[2019-12-01] MEDS: GABAPENTIN 100 MG CAPSULE PO SCH ×2 (09:20→22:12)
[2019-12-01] MEDS: FUROSEMIDE 40 MG TABLET PO SCH (09:20)
[2019-12-01] MEDS: LOSARTAN 50 MG TABLET PO SCH ×2 (09:20→22:12)
[2019-12-01] MEDS: FLUTICASONE/SALMETEROL 250-50 DISKUS 14 DOSE INH SCH ×2 (09:25→22:11)
[2019-12-01] MEDS ORDERED: POTASSIUM CHLORIDE RIDER 10 MEQ in PREMIX 1 EACH IV SCH (12:00)
[2019-12-01] MEDS: FUROSEMIDE 20 MG TABLET PO SCH (12:27)
[2019-12-02 07:34] LABS: Basophils # 0.1 10*3/uL (0.0-0.2); Basophils % 0.6 % (0.0-0.8); Eosinophils # 0.4 10*3/uL (0.0-0.87); Eosinophils % 2.8 % (0.00-10.9); Hematocrit 30.2 VOL% (35.7-47.0); Hemoglobin 8.5 GM/DL (12.0-16.0); Immature Granulocytes % 6.5 %; Immature Granulocytes Absolute 1.01 #; Lymphocytes # 0.9 10*3/uL (1.4-4.0); Lymphocytes % 5.8 % (21.3-54.2); Mean Corpuscular HGB Conc 28.1 GM/DL (32-36); Mean Corpuscular Volume 74.2 FL (87-102); Mean Platelet Volume 9.7 FL (9.6-12.0); Monocytes % 6.4 % (1.7-12.7); NRBC # 0.05 10*3/uL; Neutrophils % 77.9 % (38.7-73.9); Platelet Count 565 T/CUMM (130-400); Red Blood Count 4.07 MC/CUMM (3.8-5.5); Red Cell Distribution Width 22.6 % (9.3-17.3); White Blood Count 15.4 T/CUMM (4-12)
[2019-12-02 08:07] LABS: Eosinophils 5 % (0-10); Hypochromasia 2+; Lymphocytes 2 % (20-55); Metamyelocytes 1 %; Microcytosis 1+; Myelocytes 1 %; Segmented Neutrophils 87 % (50-85); Total Cells Counted 100
[2019-12-02 08:08] LABS: Ovalocytes 1+; Platelet Estimate Increased; Polychromasia Few
[2019-12-02] MEDS: cefTRIAXone 1,000 MG in SYRINGE 1 EACH IV SCH (08:58)
[2019-12-02] MEDS: carvediloL 12.5 MG TABLET PO SCH ×2 (09:10→17:46)
[2019-12-02] MEDS: LOSARTAN 50 MG TABLET PO SCH ×2 (09:10→21:27)
[2019-12-02] MEDS: FLUTICASONE/SALMETEROL 250-50 DISKUS 14 DOSE INH SCH ×2 (09:11→21:27)
[2019-12-02] MEDS: FUROSEMIDE 40 MG TABLET PO SCH (09:11)
[2019-12-02] MEDS: DESITIN 4OZ/NYSTATIN 15 GRAM MIXTURE PASTE TOP SCH ×2 (09:11→21:27)
[2019-12-02] MEDS: PANTOPRAZOLE 40 MG TABLET PO SCH ×2 (09:11→21:27)
[2019-12-02] MEDS: GABAPENTIN 100 MG CAPSULE PO SCH ×2 (09:11→21:27)
[2019-12-02 10:28] LABS: Albumin 2.5 G/DL (3.4-5.0); Bilirubin,Total 1.1 MG/DL (0.2-1.0); Calcium 7.6 MG/DL (8.5-10.1); Total Protein 6.1 G/DL (6.4-8.3)
[2019-12-02] MEDS: FUROSEMIDE 20 MG TABLET PO SCH (12:26)
[2019-12-02] MEDS ORDERED: POTASSIUM CHLORIDE 20 MEQ TABLET PO ONE (21:37)
[2019-12-03] MEDS: carvediloL 12.5 MG TABLET PO SCH ×2 (09:17→17:04)
[2019-12-03] MEDS: GABAPENTIN 100 MG CAPSULE PO SCH ×2 (09:18→21:37)
[2019-12-03] MEDS: FUROSEMIDE 40 MG TABLET PO SCH (09:18)
[2019-12-03] MEDS: PANTOPRAZOLE 40 MG TABLET PO SCH ×2 (09:18→21:37)
[2019-12-03] MEDS: LOSARTAN 50 MG TABLET PO SCH ×2 (09:18→21:37)
[2019-12-03] MEDS: DESITIN 4OZ/NYSTATIN 15 GRAM MIXTURE PASTE TOP SCH ×2 (09:18→21:37)
[2019-12-03] MEDS: POTASSIUM CHLORIDE 20 MEQ TABLET PO SCH ×2 (09:18→21:37)
[2019-12-03] MEDS: FLUTICASONE/SALMETEROL 250-50 DISKUS 14 DOSE INH SCH ×2 (09:18→21:37)
[2019-12-03] MEDS: FUROSEMIDE 20 MG TABLET PO SCH (12:27)
[2019-12-04 05:46] LABS: Calcium 7.5 MG/DL (8.5-10.1)
[2019-12-04 05:54] LABS: Osmolality,Calculated 273.1 MOS/KG (273-304)
[2019-12-04 06:57] LABS: Basophils # 0.1 10*3/uL (0.0-0.2); Basophils % 0.6 % (0.0-0.8); Eosinophils # 0.4 10*3/uL (0.0-0.87); Eosinophils % 2.4 % (0.00-10.9); Hematocrit 27.8 VOL% (35.7-47.0); Hemoglobin 7.9 GM/DL (12.0-16.0); Immature Granulocytes % 7.3 %; Lymphocytes # 1.2 10*3/uL (1.4-4.0); Lymphocytes % 7.5 % (21.3-54.2); Mean Corpuscular HGB Conc 28.4 GM/DL (32-36); Mean Corpuscular Volume 73.9 FL (87-102); Monocytes % 6.2 % (1.7-12.7); NRBC # 0.03 10*3/uL; Platelet Count 546 T/CUMM (130-400); Red Blood Count 3.76 MC/CUMM (3.8-5.5); Red Cell Distribution Width 22.5 % (9.3-17.3); White Blood Count 16.3 T/CUMM (4-12)
[2019-12-04 07:10] LABS: Band Neutrophils 3 % (0-10); Eosinophils 2 % (0-10); Hypochromasia 1+; Lymphocytes 10 % (20-55); Microcytosis 1+; Myelocytes 1 %; Ovalocytes 1+; Segmented Neutrophils 82 % (50-85); Total Cells Counted 100
[2019-12-04 07:11] LABS: Polychromasia Few; Stomatocytes Slight
[2019-12-04] MEDS: carvediloL 12.5 MG TABLET PO SCH ×2 (08:30→17:50)
[2019-12-04] MEDS: FUROSEMIDE 40 MG TABLET PO SCH (08:30)
[2019-12-04] MEDS: DESITIN 4OZ/NYSTATIN 15 GRAM MIXTURE PASTE TOP SCH ×2 (08:31→21:01)
[2019-12-04] MEDS: GABAPENTIN 100 MG CAPSULE PO SCH ×2 (08:31→21:01)
[2019-12-04] MEDS: FLUTICASONE/SALMETEROL 250-50 DISKUS 14 DOSE INH SCH ×2 (08:31→21:01)
[2019-12-04] MEDS: POTASSIUM CHLORIDE 20 MEQ TABLET PO SCH ×2 (08:31→21:01)
[2019-12-04] MEDS: PANTOPRAZOLE 40 MG TABLET PO SCH ×2 (08:31→21:01)
[2019-12-05 06:35] LABS: Calcium 7.6 MG/DL (8.5-10.1); Osmolality,Calculated 272.2 MOS/KG (273-304)
[2019-12-05 06:43] LABS: Basophils # 0.1 10*3/uL (0.0-0.2); Basophils % 0.5 % (0.0-0.8); Eosinophils # 0.4 10*3/uL (0.0-0.87); Eosinophils % 2.5 % (0.00-10.9); Hematocrit 26.4 VOL% (35.7-47.0); Immature Granulocytes % 5.6 %; Immature Granulocytes Absolute 0.83 #; Lymphocytes # 1.2 10*3/uL (1.4-4.0); Lymphocytes % 7.8 % (21.3-54.2); Mean Corpuscular HGB Conc 27.7 GM/DL (32-36); Mean Platelet Volume 9.7 FL (9.6-12.0); Neutrophils % 78.6 % (38.7-73.9); Platelet Count 503 T/CUMM (130-400); Red Blood Count 3.52 MC/CUMM (3.8-5.5); Red Cell Distribution Width 22.5 % (9.3-17.3); White Blood Count 14.9 T/CUMM (4-12)
[2019-12-05 06:46] LABS: Hemoglobin 7.3 GM/DL (12.0-16.0)
[2019-12-05 06:53] LABS: Eosinophils 1 % (0-10); Hypochromasia 2+; Lymphocytes 8 % (20-55); Microcytosis 1+; Ovalocytes Slight; Platelet Estimate Adequate; Segmented Neutrophils 89 % (50-85); Total Cells Counted 100
[2019-12-05 08:42] LABS: Hematocrit 28.6 VOL% (35.7-47.0); Hemoglobin 8.1 GM/DL (12.0-16.0)
[2019-12-05] MEDS: FUROSEMIDE 40 MG TABLET PO SCH (09:42)
[2019-12-05] MEDS: PANTOPRAZOLE 40 MG TABLET PO SCH ×2 (09:42→20:58)
[2019-12-05] MEDS: GABAPENTIN 100 MG CAPSULE PO SCH ×2 (09:42→20:58)
[2019-12-05] MEDS: carvediloL 12.5 MG TABLET PO SCH ×2 (09:42→17:05)
[2019-12-05] MEDS: DESITIN 4OZ/NYSTATIN 15 GRAM MIXTURE PASTE TOP SCH ×2 (09:43→21:00)
[2019-12-05] MEDS: POTASSIUM CHLORIDE 20 MEQ TABLET PO SCH ×2 (09:43→20:58)
[2019-12-05] MEDS: FLUTICASONE/SALMETEROL 250-50 DISKUS 14 DOSE INH SCH ×2 (09:43→20:59)
[2019-12-05 14:57] LABS: Hematocrit 28.9 VOL% (35.7-47.0); Hemoglobin 8.1 GM/DL (12.0-16.0)
[2019-12-05] MEDS ORDERED: POLYETHYLENE GLYCOL POWDER 255 GM BOTTLE PO ONE (18:00)
[2019-12-06 05:23] LABS: INR 1.2; PT Patient Result 12.7 SECS (9.8-11.9)
[2019-12-06 05:47] LABS: Calcium 7.8 MG/DL (8.5-10.1); Osmolality,Calculated 266.4 MOS/KG (273-304)
[2019-12-06 05:54] LABS: Basophils # 0.1 10*3/uL (0.0-0.2); Basophils % 0.7 % (0.0-0.8); Eosinophils # 0.3 10*3/uL (0.0-0.87); Eosinophils % 2.6 % (0.00-10.9); Hematocrit 28.1 VOL% (35.7-47.0); Immature Granulocytes % 5.1 %; Immature Granulocytes Absolute 0.65 #; Mean Corpuscular HGB Conc 28.5 GM/DL (32-36); Mean Platelet Volume 9.8 FL (9.6-12.0); Monocytes % 4.8 % (1.7-12.7); NRBC # 0.02 10*3/uL; Neutrophils % 78.8 % (38.7-73.9); Platelet Count 573 T/CUMM (130-400); Red Blood Count 3.85 MC/CUMM (3.8-5.5); Red Cell Distribution Width 22.5 % (9.3-17.3); White Blood Count 12.8 T/CUMM (4-12)
[2019-12-06] MEDS ORDERED: MAGNESIUM CITRATE 300 ML BOTTLE PO ONE (06:00)
[2019-12-06 06:44] LABS: Eosinophils 2 % (0-10); Hypochromasia 2+; Lymphocytes 5 % (20-55); Microcytosis 1+; Myelocytes 2 %; Segmented Neutrophils 87 % (50-85); Total Cells Counted 100
[2019-12-06 06:45] LABS: Anisocytosis 1+; Elliptocytes 1+; Target Cells Slight; Tear Drop Cells Slight
[2019-12-06 06:46] LABS: Platelet Estimate Increased
[2019-12-06] MEDS: carvediloL 12.5 MG TABLET PO SCH ×2 (08:19→17:34)
[2019-12-06] MEDS: LACTATED RINGERS 1,000 ML IV SCH (08:19)
[2019-12-06] MEDS ORDERED: LIDOCAINE 2% 5 ML VIAL ONE (09:00)
[2019-12-06] MEDS ORDERED: PHENYLEPHRINE 1 MG/10 ML SYRINGE IV ONE (09:00)
[2019-12-06] MEDS ORDERED: propofoL 200 MG/20 ML VIAL IV ONE (09:00)
[2019-12-06] MEDS: LOSARTAN 50 MG TABLET PO SCH ×2 (13:38→20:20)
[2019-12-06] MEDS: FLUTICASONE/SALMETEROL 250-50 DISKUS 14 DOSE INH SCH ×2 (13:38→20:22)
[2019-12-06] MEDS: GABAPENTIN 100 MG CAPSULE PO SCH ×2 (13:39→20:20)
[2019-12-06] MEDS: DESITIN 4OZ/NYSTATIN 15 GRAM MIXTURE PASTE TOP SCH ×2 (13:39→20:22)
[2019-12-06] MEDS: PANTOPRAZOLE 40 MG TABLET PO SCH ×2 (13:39→20:21)
[2019-12-06] MEDS: POTASSIUM CHLORIDE 20 MEQ TABLET PO SCH ×2 (13:39→20:20)
[2019-12-06] MEDS: FUROSEMIDE 20 MG TABLET PO SCH (13:39)
[2019-12-06] MEDS: FUROSEMIDE 40 MG TABLET PO SCH (13:39)
[2019-12-07] MEDS ORDERED: SODIUM CHLORIDE 0.9% 500 ML IV ONE (05:44)
[2019-12-07] MEDS ORDERED: SODIUM CHLORIDE 0.9% 1,000 ML IV PRN (05:45)
[2019-12-07 06:00] LABS: Basophils # 0.1 10*3/uL (0.0-0.2); Basophils % 0.4 % (0.0-0.8); Eosinophils # 0.4 10*3/uL (0.0-0.87); Eosinophils % 2.1 % (0.00-10.9); Hematocrit 21.3 VOL% (35.7-47.0); Immature Granulocytes % 5.1 %; Immature Granulocytes Absolute 1.06 #; Lymphocytes # 1.3 10*3/uL (1.4-4.0); Lymphocytes % 6.1 % (21.3-54.2); Mean Corpuscular HGB Conc 27.2 GM/DL (32-36); Mean Corpuscular Volume 76.1 FL (87-102); Mean Platelet Volume 10.3 FL (9.6-12.0); Monocytes % 4.7 % (1.7-12.7); Neutrophils % 81.6 % (38.7-73.9); Platelet Count 708 T/CUMM (130-400); Red Cell Distribution Width 21.6 % (9.3-17.3); White Blood Count 20.7 T/CUMM (4-12)
[2019-12-07 06:07] LABS: Hemoglobin 5.8 GM/DL (12.0-16.0)
[2019-12-07 06:26] LABS: Calcium 7.4 MG/DL (8.5-10.1)
[2019-12-07 06:39] LABS: Osmolality,Calculated 273.1 MOS/KG (273-304)
[2019-12-07 06:44] LABS: Elliptocytes Few; Eosinophils 3 % (0-10); Hypochromasia 2+; Lymphocytes 8 % (20-55); Microcytosis 1+; Platelet Estimate Increased; Segmented Neutrophils 87 % (50-85); Total Cells Counted 100
[2019-12-07] MEDS ORDERED: DOPamine 800 MG/250 ML PREMIX IV PRN (07:47)
[2019-12-07] MEDS ORDERED: LACTATED RINGERS 1,000 ML IV ONE (08:30)
[2019-12-07] MEDS: LACTATED RINGERS 1,000 ML IV SCH ×2 (09:15→10:22)
[2019-12-07] MEDS: ONDANSETRON 4 MG/2 ML VIAL IV PRN (09:40)
[2019-12-07] MEDS: POTASSIUM CHLORIDE 20 MEQ TABLET PO SCH ×2 (10:10→21:03)
[2019-12-07] MEDS: FUROSEMIDE 40 MG TABLET PO SCH (10:10)
[2019-12-07] MEDS: FLUTICASONE/SALMETEROL 250-50 DISKUS 14 DOSE INH SCH ×2 (10:10→21:03)
[2019-12-07] MEDS: DESITIN 4OZ/NYSTATIN 15 GRAM MIXTURE PASTE TOP SCH ×2 (10:11→21:03)
[2019-12-07] MEDS: GABAPENTIN 100 MG CAPSULE PO SCH ×2 (10:11→21:03)
[2019-12-07] MEDS: PANTOPRAZOLE 40 MG TABLET PO SCH ×2 (10:11→21:03)
[2019-12-07 11:42] LABS: Apearance,Urine Slightly Hazy (Clear); Bilirubin,Urine Negative (Negative); Blood, Urine Moderate mg/dL (Negative); Glucose,Urine (UA) Negative (Negative); Ketones,Urine Negative (Negative); Mucus,Urine Occasional /LPF (Occasional); Nitrite,Urine Negative (Negative); Protein,Urine 30 MG/DL; RBC,Urine 1 /HPF (0-4); Squamous Epithelial Cell,Urine Occasional /HPF (0-10); Urine Color Yellow (Yellow); Urine Specific Gravity 1.012 (1.001-1.035); Urine Urobilinogen < 2.0 EU/DL (0.2-1.0); WBC,Urine 8 /HPF (0-6)
[2019-12-07 12:43] LABS: Basophils # 0.3 10*3/uL (0.0-0.2); Basophils % 0.8 % (0.0-0.8); Eosinophils # 0.7 10*3/uL (0.0-0.87); Hematocrit 33.7 VOL% (35.7-47.0); Hemoglobin 10.2 GM/DL (12.0-16.0); Immature Granulocytes % 6.5 %; Immature Granulocytes Absolute 2.17 #; Lymphocytes # 1.7 10*3/uL (1.4-4.0); Lymphocytes % 5.1 % (21.3-54.2); Mean Corpuscular HGB Conc 30.3 GM/DL (32-36); Mean Corpuscular Volume 79.1 FL (87-102); Mean Platelet Volume 9.8 FL (9.6-12.0); Monocytes % 3.8 % (1.7-12.7); NRBC # 0.02 10*3/uL; Neutrophils % 81.8 % (38.7-73.9); Red Blood Count 4.26 MC/CUMM (3.8-5.5); Red Cell Distribution Width 22.5 % (9.3-17.3); White Blood Count 33.4 T/CUMM (4-12)
[2019-12-07 12:44] LABS: Platelet Count 943 T/CUMM (130-400)
[2019-12-07 13:03] LABS: Band Neutrophils 4 % (0-10); Lymphocytes 10 % (20-55); Metamyelocytes 1 %; Segmented Neutrophils 82 % (50-85); Total Cells Counted 100
[2019-12-07 13:04] LABS: Anisocytosis 2+; Platelet Estimate Increased; Polychromasia Slight
[2019-12-07 13:05] LABS: Ovalocytes Few
[2019-12-07 19:58] LABS: Basophils # 0.2 10*3/uL (0.0-0.2); Basophils % 0.7 % (0.0-0.8); Eosinophils # 0.6 10*3/uL (0.0-0.87); Eosinophils % 1.9 % (0.00-10.9); Hematocrit 31.7 VOL% (35.7-47.0); Hemoglobin 9.5 GM/DL (12.0-16.0); Immature Granulocytes % 5.6 %; Lymphocytes # 1.7 10*3/uL (1.4-4.0); Lymphocytes % 5.5 % (21.3-54.2); Mean Corpuscular Volume 79.6 FL (87-102); Mean Platelet Volume 9.6 FL (9.6-12.0); Monocytes % 4.5 % (1.7-12.7); NRBC # 0.03 10*3/uL; Neutrophils % 81.8 % (38.7-73.9); Platelet Count 943 T/CUMM (130-400); Red Blood Count 3.98 MC/CUMM (3.8-5.5); Red Cell Distribution Width 22.3 % (9.3-17.3); White Blood Count 30.2 T/CUMM (4-12)
[2019-12-07 20:21] LABS: Eosinophils 1 % (0-10); Lymphocytes 5 % (20-55); Platelet Estimate Increased; Segmented Neutrophils 87 % (50-85); Total Cells Counted 100
[2019-12-07 20:22] LABS: Anisocytosis 1+; Hypochromasia 2+; Microcytosis 1+; Ovalocytes Few
[2019-12-07 20:23] LABS: Polychromasia Few
[2019-12-07 22:29] LABS: Basophils # 0.2 10*3/uL (0.0-0.2); Basophils % 0.6 % (0.0-0.8); Eosinophils # 0.3 10*3/uL (0.0-0.87); Eosinophils % 1.4 % (0.00-10.9); Hematocrit 29.2 VOL% (35.7-47.0); Hemoglobin 8.7 GM/DL (12.0-16.0); Immature Granulocytes % 5.2 %; Immature Granulocytes Absolute 1.29 #; Lymphocytes # 1.8 10*3/uL (1.4-4.0); Lymphocytes % 7.3 % (21.3-54.2); Mean Corpuscular HGB Conc 29.8 GM/DL (32-36); Mean Corpuscular Volume 79.6 FL (87-102); Mean Platelet Volume 9.4 FL (9.6-12.0); Monocytes % 5.5 % (1.7-12.7); NRBC # 0.02 10*3/uL; Platelet Count 776 T/CUMM (130-400); Red Blood Count 3.67 MC/CUMM (3.8-5.5); Red Cell Distribution Width 22.2 % (9.3-17.3)
[2019-12-08 01:06] LABS: Band Neutrophils 1 % (0-10); Eosinophils 1 % (0-10); Lymphocytes 11 % (20-55); Segmented Neutrophils 81 % (50-85); Total Cells Counted 100
[2019-12-08 06:18] LABS: Basophils # 0.2 10*3/uL (0.0-0.2); Basophils % 0.7 % (0.0-0.8); Eosinophils # 0.5 10*3/uL (0.0-0.87); Eosinophils % 2.1 % (0.00-10.9); Hematocrit 28.5 VOL% (35.7-47.0); Hemoglobin 8.2 GM/DL (12.0-16.0); Immature Granulocytes % 5.5 %; Immature Granulocytes Absolute 1.28 #; Lymphocytes # 1.5 10*3/uL (1.4-4.0); Lymphocytes % 6.6 % (21.3-54.2); Mean Corpuscular HGB Conc 28.8 GM/DL (32-36); Mean Platelet Volume 9.6 FL (9.6-12.0); Monocytes % 4.7 % (1.7-12.7); NRBC # 0.02 10*3/uL; Neutrophils % 80.4 % (38.7-73.9); Platelet Count 798 T/CUMM (130-400); Red Blood Count 3.52 MC/CUMM (3.8-5.5); Red Cell Distribution Width 22.5 % (9.3-17.3); White Blood Count 23.2 T/CUMM (4-12)
[2019-12-08 06:41] LABS: Albumin 2.3 G/DL (3.4-5.0); Bilirubin,Total 0.4 MG/DL (0.2-1.0); Calcium 7.8 MG/DL (8.5-10.1); Total Protein 5.3 G/DL (6.4-8.3)
[2019-12-08 06:45] LABS: Eosinophils 5 % (0-10); Hypochromasia 1+; Lymphocytes 11 % (20-55); Microcytosis Slight; Ovalocytes Slight; Platelet Estimate Increased; Segmented Neutrophils 82 % (50-85); Total Cells Counted 100
[2019-12-08] MEDS ORDERED: SODIUM CHLORIDE 0.9% 500 ML IV ONE ×2 (08:17→14:00)
[2019-12-08] MEDS: POTASSIUM CHLORIDE 20 MEQ TABLET PO SCH ×2 (08:31→20:36)
[2019-12-08] MEDS: PANTOPRAZOLE 40 MG TABLET PO SCH ×2 (09:13→20:36)
[2019-12-08] MEDS: GABAPENTIN 100 MG CAPSULE PO SCH ×2 (09:13→20:36)
[2019-12-08] MEDS: FLUTICASONE/SALMETEROL 250-50 DISKUS 14 DOSE INH SCH ×2 (09:13→20:36)
[2019-12-08] MEDS: DESITIN 4OZ/NYSTATIN 15 GRAM MIXTURE PASTE TOP SCH (09:52)
[2019-12-08] MEDS: LACTATED RINGERS 1,000 ML IV SCH (12:17)
[2019-12-09] MEDS: DESITIN 4OZ/NYSTATIN 15 GRAM MIXTURE PASTE TOP SCH ×3 (02:09→21:42)
[2019-12-09 03:59] LABS: Albumin 1.9 G/DL (3.4-5.0); Bilirubin,Total 1.6 MG/DL (0.2-1.0); Calcium 7.3 MG/DL (8.5-10.1); Total Protein 4.3 G/DL (6.4-8.3)
[2019-12-09 05:39] LABS: Basophils # 0.1 10*3/uL (0.0-0.2); Basophils % 0.4 % (0.0-0.8); Eosinophils # 0.6 10*3/uL (0.0-0.87); Eosinophils % 2.2 % (0.00-10.9); Immature Granulocytes % 6.7 %; Lymphocytes # 2.2 10*3/uL (1.4-4.0); Mean Corpuscular HGB Conc 29.7 GM/DL (32-36); Mean Corpuscular Volume 78.1 FL (87-102); Mean Platelet Volume 10.3 FL (9.6-12.0); Monocytes % 4.9 % (1.7-12.7); NRBC # 0.04 10*3/uL; Neutrophils % 77.8 % (38.7-73.9); Platelet Count 750 T/CUMM (130-400); Red Blood Count 2.24 MC/CUMM (3.8-5.5); Red Cell Distribution Width 23.4 % (9.3-17.3)
[2019-12-09 05:55] LABS: Hemoglobin 5.2 GM/DL (12.0-16.0)
[2019-12-09 05:56] LABS: Hematocrit 17.5 VOL% (35.7-47.0)
[2019-12-09] MEDS ORDERED: SODIUM CHLORIDE 0.9% 1,000 ML IV PRN ×4 (06:19→23:29)
[2019-12-09 06:48] LABS: Anisocytosis 1+; Band Neutrophils 1 % (0-10); Eosinophils 3 % (0-10); Lymphocytes 10 % (20-55); Ovalocytes 1+; Platelet Estimate Increased; Segmented Neutrophils 83 % (50-85); Total Cells Counted 100
[2019-12-09 06:49] LABS: Tear Drop Cells 1+
[2019-12-09] MEDS: GABAPENTIN 100 MG CAPSULE PO SCH ×2 (09:00→21:41)
[2019-12-09] MEDS: FLUTICASONE/SALMETEROL 250-50 DISKUS 14 DOSE INH SCH ×2 (09:00→21:41)
[2019-12-09] MEDS: POTASSIUM CHLORIDE 20 MEQ TABLET PO SCH (09:00)
[2019-12-09] MEDS: PANTOPRAZOLE 40 MG TABLET PO SCH ×2 (09:00→21:41)
[2019-12-09] MEDS ORDERED: HYOSCYAMINE 0.125 MG TABLET PO ONE (12:27)
[2019-12-09 19:47] LABS: Hematocrit 23.7 VOL% (35.7-47.0); Hemoglobin 7.5 GM/DL (12.0-16.0)
[2019-12-09] MEDS ORDERED: FUROSEMIDE 20 MG/2 ML VIAL IV ONE (20:34)
[2019-12-09] MEDS ORDERED: SODIUM POLYSTYRENE SULFATE 15 GM/60 ML BOTTLE PO STA (20:38)
[2019-12-10 06:28] LABS: Basophils # 0.1 10*3/uL (0.0-0.2); Basophils % 0.7 % (0.0-0.8); Eosinophils # 0.3 10*3/uL (0.0-0.87); Eosinophils % 1.9 % (0.00-10.9); Hematocrit 24.3 VOL% (35.7-47.0); Hemoglobin 7.7 GM/DL (12.0-16.0); Immature Granulocytes % 8.8 %; Immature Granulocytes Absolute 1.55 #; Lymphocytes # 1.4 10*3/uL (1.4-4.0); Lymphocytes % 7.9 % (21.3-54.2); Mean Corpuscular HGB Conc 31.7 GM/DL (32-36); Mean Corpuscular Volume 81.8 FL (87-102); Mean Platelet Volume 9.7 FL (9.6-12.0); Monocytes % 5.5 % (1.7-12.7); NRBC # 0.04 10*3/uL; Neutrophils % 75.2 % (38.7-73.9); Platelet Count 603 T/CUMM (130-400); Red Blood Count 2.97 MC/CUMM (3.8-5.5); Red Cell Distribution Width 19.3 % (9.3-17.3); White Blood Count 17.7 T/CUMM (4-12)
[2019-12-10 06:53] LABS: Bilirubin,Total 0.6 MG/DL (0.2-1.0); Calcium 7.2 MG/DL (8.5-10.1); Osmolality,Calculated 275.1 MOS/KG (273-304); Total Protein 4.4 G/DL (6.4-8.3)
[2019-12-10 08:56] LABS: Anisocytosis 1+; Hypochromasia 2+; Lymphocytes 9 % (20-55); Macrocytosis 1+; Platelet Estimate Increased; Segmented Neutrophils 88 % (50-85); Total Cells Counted 100
[2019-12-10] MEDS: PANTOPRAZOLE 40 MG TABLET PO SCH ×2 (09:18→21:18)
[2019-12-10] MEDS: DESITIN 4OZ/NYSTATIN 15 GRAM MIXTURE PASTE TOP SCH ×2 (09:18→21:19)
[2019-12-10] MEDS: FLUTICASONE/SALMETEROL 250-50 DISKUS 14 DOSE INH SCH ×2 (09:18→21:19)
[2019-12-10] MEDS: GABAPENTIN 100 MG CAPSULE PO SCH ×2 (09:18→21:18)
[2019-12-11 05:43] LABS: Basophils # 0.1 10*3/uL (0.0-0.2); Basophils % 0.7 % (0.0-0.8); Eosinophils # 0.2 10*3/uL (0.0-0.87); Eosinophils % 1.4 % (0.00-10.9); Hematocrit 27.2 VOL% (35.7-47.0); Hemoglobin 8.3 GM/DL (12.0-16.0); Immature Granulocytes % 8.2 %; Immature Granulocytes Absolute 1.31 #; Lymphocytes # 1.2 10*3/uL (1.4-4.0); Lymphocytes % 7.5 % (21.3-54.2); Mean Corpuscular HGB Conc 30.5 GM/DL (32-36); Mean Platelet Volume 9.3 FL (9.6-12.0); NRBC # 0.03 10*3/uL; Neutrophils % 77.2 % (38.7-73.9); Platelet Count 626 T/CUMM (130-400); Red Cell Distribution Width 19.8 % (9.3-17.3); White Blood Count 16.1 T/CUMM (4-12)
[2019-12-11 06:03] LABS: Albumin 2.3 G/DL (3.4-5.0); Bilirubin,Total 0.6 MG/DL (0.2-1.0); Calcium 7.7 MG/DL (8.5-10.1); Osmolality,Calculated 277.8 MOS/KG (273-304); Total Protein 5.1 G/DL (6.4-8.3)
[2019-12-11 06:20] LABS: Eosinophils 3 % (0-10); Hypochromasia 2+; Lymphocytes 10 % (20-55); Segmented Neutrophils 83 % (50-85); Total Cells Counted 100
[2019-12-11 06:21] LABS: Anisocytosis 1+; Ovalocytes Slight; Platelet Estimate Increased; Polychromasia Slight
[2019-12-11] MEDS: FLUTICASONE/SALMETEROL 250-50 DISKUS 14 DOSE INH SCH ×2 (10:22→20:37)
[2019-12-11] MEDS: PANTOPRAZOLE 40 MG TABLET PO SCH ×2 (10:22→20:35)
[2019-12-11] MEDS: GABAPENTIN 100 MG CAPSULE PO SCH ×2 (10:23→20:37)
[2019-12-11] MEDS: DESITIN 4OZ/NYSTATIN 15 GRAM MIXTURE PASTE TOP SCH ×2 (10:23→20:37)
[2019-12-12 04:21] LABS: Basophils # 0.1 10*3/uL (0.0-0.2); Basophils % 0.7 % (0.0-0.8); Eosinophils # 0.4 10*3/uL (0.0-0.87); Eosinophils % 2.9 % (0.00-10.9); Hematocrit 22.6 VOL% (35.7-47.0); Hemoglobin 7.1 GM/DL (12.0-16.0); Immature Granulocytes % 7.8 %; Immature Granulocytes Absolute 1.14 #; Lymphocytes # 1.1 10*3/uL (1.4-4.0); Lymphocytes % 7.7 % (21.3-54.2); Mean Corpuscular HGB Conc 31.4 GM/DL (32-36); Mean Corpuscular Volume 82.2 FL (87-102); Mean Platelet Volume 9.6 FL (9.6-12.0); Monocytes % 5.5 % (1.7-12.7); NRBC # 0.02 10*3/uL; Neutrophils % 75.4 % (38.7-73.9); Platelet Count 625 T/CUMM (130-400); Red Blood Count 2.75 MC/CUMM (3.8-5.5); Red Cell Distribution Width 20.2 % (9.3-17.3); White Blood Count 14.6 T/CUMM (4-12)
[2019-12-12 04:51] LABS: Band Neutrophils 1 % (0-10); Eosinophils 4 % (0-10); Hypochromasia 2+; Lymphocytes 7 % (20-55); Microcytosis 1+; Ovalocytes Slight; Platelet Estimate Adequate; Segmented Neutrophils 82 % (50-85); Total Cells Counted 100
[2019-12-12 05:16] LABS: Albumin 2.3 G/DL (3.4-5.0); Bilirubin,Total 0.5 MG/DL (0.2-1.0); Calcium 7.6 MG/DL (8.5-10.1); Osmolality,Calculated 275.8 MOS/KG (273-304); Total Protein 4.9 G/DL (6.4-8.3)
[2019-12-12 06:59] LABS: Hemoglobin 7.3 GM/DL (12.0-16.0)
[2019-12-12 08:55] LABS: Hematocrit 27.8 VOL% (35.7-47.0); Hemoglobin 8.4 GM/DL (12.0-16.0)
[2019-12-12] MEDS: GABAPENTIN 100 MG CAPSULE PO SCH ×2 (09:18→20:43)
[2019-12-12] MEDS: PANTOPRAZOLE 40 MG TABLET PO SCH ×2 (09:18→20:48)
[2019-12-12] MEDS: DESITIN 4OZ/NYSTATIN 15 GRAM MIXTURE PASTE TOP SCH ×2 (09:18→20:48)
[2019-12-12] MEDS: FLUTICASONE/SALMETEROL 250-50 DISKUS 14 DOSE INH SCH ×2 (09:18→20:48)
[2019-12-12 15:17] LABS: Hematocrit 23.7 VOL% (35.7-47.0); Hemoglobin 7.2 GM/DL (12.0-16.0)
[2019-12-12] MEDS ORDERED: SODIUM CHLORIDE 0.9% 1,000 ML IV PRN ×2 (15:50→17:14)
[2019-12-13] MEDS: HYOSCYAMINE 0.125 MG TABLET PO PRN ×2 (02:25→22:13)
[2019-12-13 06:43] LABS: Basophils # 0.1 10*3/uL (0.0-0.2); Basophils % 0.8 % (0.0-0.8); Eosinophils # 0.3 10*3/uL (0.0-0.87); Eosinophils % 2.3 % (0.00-10.9); Hematocrit 28.3 VOL% (35.7-47.0); Hemoglobin 8.8 GM/DL (12.0-16.0); Immature Granulocytes % 7.5 %; Immature Granulocytes Absolute 1.07 #; Lymphocytes # 1.1 10*3/uL (1.4-4.0); Lymphocytes % 7.4 % (21.3-54.2); Mean Corpuscular HGB Conc 31.1 GM/DL (32-36); Mean Platelet Volume 9.1 FL (9.6-12.0); Monocytes % 6.2 % (1.7-12.7); NRBC # 0.04 10*3/uL; Neutrophils % 75.8 % (38.7-73.9); Platelet Count 530 T/CUMM (130-400); Red Blood Count 3.37 MC/CUMM (3.8-5.5); Red Cell Distribution Width 19.3 % (9.3-17.3); White Blood Count 14.2 T/CUMM (4-12)
[2019-12-13 07:11] LABS: Albumin 2.2 G/DL (3.4-5.0); Bilirubin,Total 1.6 MG/DL (0.2-1.0); Calcium 7.7 MG/DL (8.5-10.1); Osmolality,Calculated 277.5 MOS/KG (273-304); Total Protein 4.9 G/DL (6.4-8.3)
[2019-12-13 07:31] LABS: Eosinophils 2 % (0-10); Hypochromasia 1+; Lymphocytes 9 % (20-55); Microcytosis Slight; Platelet Estimate Adequate; Segmented Neutrophils 82 % (50-85); Total Cells Counted 100
[2019-12-13] MEDS: GABAPENTIN 100 MG CAPSULE PO SCH ×2 (09:30→20:30)
[2019-12-13] MEDS: PANTOPRAZOLE 40 MG TABLET PO SCH ×2 (09:30→20:30)
[2019-12-13] MEDS: DESITIN 4OZ/NYSTATIN 15 GRAM MIXTURE PASTE TOP SCH ×2 (09:31→20:31)
[2019-12-13] MEDS: FLUTICASONE/SALMETEROL 250-50 DISKUS 14 DOSE INH SCH ×2 (09:31→20:32)
[2019-12-14 05:37] LABS: Basophils # 0.1 10*3/uL (0.0-0.2); Basophils % 0.7 % (0.0-0.8); Eosinophils # 0.5 10*3/uL (0.0-0.87); Eosinophils % 3.1 % (0.00-10.9); Hematocrit 30.6 VOL% (35.7-47.0); Hemoglobin 9.7 GM/DL (12.0-16.0); Immature Granulocytes % 7.4 %; Immature Granulocytes Absolute 1.09 #; Lymphocytes # 1.1 10*3/uL (1.4-4.0); Lymphocytes % 7.1 % (21.3-54.2); Mean Corpuscular HGB Conc 31.7 GM/DL (32-36); Mean Corpuscular Volume 84.1 FL (87-102); Mean Platelet Volume 9.6 FL (9.6-12.0); Monocytes % 6.1 % (1.7-12.7); NRBC # 0.03 10*3/uL; Neutrophils % 75.6 % (38.7-73.9); Platelet Count 577 T/CUMM (130-400); Red Blood Count 3.64 MC/CUMM (3.8-5.5); Red Cell Distribution Width 19.9 % (9.3-17.3); White Blood Count 14.8 T/CUMM (4-12)
[2019-12-14 06:10] LABS: Osmolality,Calculated 275.5 MOS/KG (273-304)
[2019-12-14 06:32] LABS: Band Neutrophils 1 % (0-10); Eosinophils 4 % (0-10); Hypochromasia 1+; Lymphocytes 11 % (20-55); Ovalocytes Slight; Platelet Estimate Adequate; Segmented Neutrophils 81 % (50-85); Total Cells Counted 100
[2019-12-14 06:33] LABS: Microcytosis Slight
[2019-12-14] MEDS: FLUTICASONE/SALMETEROL 250-50 DISKUS 14 DOSE INH SCH (08:41)
[2019-12-14] MEDS: DESITIN 4OZ/NYSTATIN 15 GRAM MIXTURE PASTE TOP SCH (08:41)
[2019-12-14] MEDS: GABAPENTIN 100 MG CAPSULE PO SCH (08:41)
[2019-12-14] MEDS: PANTOPRAZOLE 40 MG TABLET PO SCH (08:41)
[2019-12-14 12:38] VITALS: BP 149/80
== END 2019-12-14 15:23 | disposition swing bed (61) | DRG 374 ==
LOC: N.ED 18:43 → N.EDINP 20:21 → SUATTDRO 20:21 → N.ICU 21:15 → N.4E 11-27 16:16 → N.ICU 11-28 17:22 → N.3E 11-29 22:15 → N.4E 12-04 10:30 → N.CVR 12-07 07:34 → N.ICU 12-07 20:23 → N.4E 12-08 21:36
PROVIDERS: ADMIT Internal Medicine; ATTEND Family Medicine
PROC: COLSIRP (2019-12-06 10:05)